=== PATIENT | female | born 1935 | race Caucasian/White ===

== ENCOUNTER → 2016-07-11 | Outpatient (CLI) | payer OTHER, MEDICARE ==
[~2016-07-11] MED LIST: PRMT25 PO; PROG100C6 PO; TRIEST PO
--- NOTE | 2016-07-12 13:58 | MAMMOGRAPHY REPORT ---
BILATERAL DIGITAL SCREENING MAMMOGRAM TOMOSYNTHESIS WITH CAD: 07/11/2016 CLINICAL HISTORY: Routine screening examination. TECHNIQUE: Breast tomosynthesis in addition to standard 2D mammography was performed. Current study was also evaluated with a Computer Aided Detection (CAD) system. COMPARISON: Comparison is made to exams dated: 07/08/2015 mammogram, 06/29/2015 mammogram, 11/12/2012 mammogram, and 08/04/2010 mammogram - [facility]. BREAST COMPOSITION: The tissue of both breasts is heterogeneously dense, which may obscure small ma sses. FINDINGS: There are a few benign-appearing calcifications bilaterally. No suspicious mass, architec tural distortion or cluster of suspicious microcalcifications is seen. IMPRESSION: ACR BI-RADS CATEGORY 1: NEGATIVE There is no mammographic evidence of malignancy. A 1 year screening mammogram is recommended. The p atient will receive written notification of the results. Approximately 10% of breast cancers are not detected with mammography. A negative mammographic repor t should not delay biopsy if a clinically suggestive mass is present. Che Herrera M.D. ay/:07/11/2016 16:36:40 Outside Contractor Sales: Maria Luisa MEDINA(R)(M), [facility] letter sent: Normal 1/2 BI-RADS Code: ACR BI-RADS Category 1: Negative
== END | disposition home or self-care (01) ==
LOC: C.MAMM 14:05
PROVIDERS: ATTEND Obstetrics & Gynecology
DX: Z12.31 Encounter for screening mammogram for malignant neoplasm of breast (principal)

== ENCOUNTER → 2016-08-25 | Outpatient (CLI) | payer OTHER, MEDICARE | END | disposition home or self-care (01) | LOC: C.PATHSPEC 13:21 | PROVIDERS: ATTEND Obstetrics & Gynecology | DX: L11.8 Other specified acantholytic disorders (principal) ==

== ENCOUNTER → 2017-07-13 | Outpatient (CLI) | payer OTHER, MEDICARE ==
--- NOTE | 2017-07-13 15:06 | MAMMOGRAPHY REPORT ---
BILATERAL DIGITAL SCREENING MAMMOGRAM TOMOSYNTHESIS WITH CAD: 07/13/2017 CLINICAL HISTORY: Routine screening. Patient has no complaints. TECHNIQUE: Breast tomosynthesis in addition to standard 2D mammography was performed. Current study was also evaluated with a Computer Aided Detection (CAD) system. COMPARISON: Comparison is made to exams dated: 07/11/2016 mammogram, 06/29/2015 mammogram, 11/12/2012 mammogram, 08/18/2011 mammogram, 08/16/2011 mammogram, and 08/04/2010 mammogram - [facility]. BREAST COMPOSITION: The tissue of both breasts is heterogeneously dense, which may obscure small mas ses. FINDINGS: There is a small area of probable architectural distortion within the right upper inner q uadrant, best seen on the tomosynthesis images, for which spot compression tomosynthesis views and po ssible breast ultrasound are recommended for further evaluation. The remainder of both breasts are stable compared to prior exams, without suspicious masses, calcific ations, or areas of architectural distortion noted. Bilateral superior breast asymmetries are stable compared to prior exams. IMPRESSION: ACR BI-RADS CATEGORY 0: INCOMPLETE EVALUATION: NEED ADDITIONAL IMAGING EVALUATION Probable architectural distortion in the right upper inner quadrant, for which additional imaging celine luation is recommended. The patient will be called to schedule an appointment. Approximately 10% of breast cancers are not detected with mammography. A negative mammographic report should not delay biopsy if a clinically suggestive mass is present. Christianne Corrales M.D. /:07/13/2017 13:19:15 Torpedo Specialist: Adrianne MEDINA(R)(M), [facility] letter sent: Addl Imaging 0 BI-RADS Code: ACR BI-RADS Category 0: Incomplete Evaluation: Need Additional Imaging Evaluation
== END | disposition home or self-care (01) ==
LOC: C.MAMM 10:04
PROVIDERS: ATTEND Obstetrics & Gynecology
DX: Z12.31 Encounter for screening mammogram for malignant neoplasm of breast (principal); R92.2 Inconclusive mammogram

== ENCOUNTER → 2017-07-18 | Outpatient (CLI) | payer OTHER, MEDICARE ==
--- NOTE | 2017-07-18 15:10 | MAMMOGRAPHY REPORT ---
UNILATERAL RIGHT DIGITAL DIAGNOSTIC MAMMOGRAM TOMOSYNTHESIS AND TARGETED RIGHT ULTRASOUND: 07/18/2017 CLINICAL HISTORY: Callback from screening mammogram for right breast architectural distortion. TECHNIQUE: Breast tomosynthesis in addition to standard 2D mammography was performed. Spot compress ion right CC and MLO 2-D and tomosynthesis images were obtained. COMPARISON: Comparison is made to exams dated: 07/13/2017 mammogram, 07/11/2016 mammogram, 07/08/2015 ma mmogram, 06/29/2015 mammogram, 11/12/2012 mammogram, and 08/16/2011 mammogram - [facility]. BREAST COMPOSITION: The tissue of the right breast is heterogeneously dense, which may obscure small masses. FINDINGS: Spot compression views demonstrate a persistent area of focal architectural distortion in the right 12 to 12:30 breast. Targeted ultrasound was performed of the area of the architectural distortion in the right breast. I n the right breast at 12:00, 3 cm from the nipple, there is an irregular hypoechoic mass which measur es 6 x 7 x 8 mm. This corresponds with the area of architectural distortion and is suspicious for ma lignancy. Recommend ultrasound-guided core needle biopsy for further evaluation. Targeted ultrasound was performed of the right axilla. The lymph nodes are normal oval in shape and have normal fatty tere. 1-2 of the lymph nodes demonstrate cortical thickness at the upper limits of normal at approximately 2.8 mm. The lymph nodes are equivocal for metastases. It was recommended t o attempt ultrasound guided biopsy of one of the lymph nodes at the time of the right breast biopsy, however, the patient does not desire lymph node biopsy at this time. IMPRESSION: ACR BI-RADS CATEGORY 4: SUSPICIOUS, TARGETED ULTRASOUND ACR BI-RADS CATEGORY 4: SUSPICIO US 1. Irregular 8 mm mass in the right breast at 12:00 on ultrasound, which corresponds with the rocky ectural distortion seen mammographically. The mass is suspicious for malignancy and ultrasound-guide d core needle biopsy is recommended for further evaluation. 2. One to two right axillary lymph nodes demonstrate cortical thicknesses which are at the upper campuzano its of normal, and are equivocal for metastases. Recommend attempted ultrasound guided core needle b iopsy of one of the lymph nodes at the time of the right breast biopsy. However, the patient does no t wish to undergo lymph node biopsy at this time which is reasonable given that sentinel lymph node b iopsy will be performed if the right breast mass is malignant. A phone call was made to the physician's office to confirm faxed results were received. The patient has been verbally notified of the results. She tentatively scheduled the breast biopsy before leavin g the department. Approximately 10% of breast cancers are not detected with mammography. A negative mammographic report should not delay biopsy if a clinically suggestive mass is present. Christianne Corrales M.D. ah/:07/18/2017 10:43:12 Bullet Slug Casting Machine Operator: Mo MEDINA(Kishan)(Adrian), [facility] letter sent: Abnormal 4/5 BI-RADS Code: ACR BI-RADS Category 4: Suspicious Ultrasound BI-RADS: ACR BI-RADS Category 4: Suspici ous
== END | disposition home or self-care (01) ==
LOC: C.MAMM 09:59
PROVIDERS: ATTEND Obstetrics & Gynecology
DX: R92.8 Other abnormal and inconclusive findings on diagnostic imaging of breast (principal); N63.10 Unspecified lump in the right breast, unspecified quadrant

== ENCOUNTER → 2017-07-25 | Outpatient (CLI) | payer OTHER, MEDICARE ==
--- NOTE | 2017-07-25 10:27 | Discharge Instructions ---
Discharge Instructions Procedure Procedure Date: Jul 25, 2017. Reason for visit: Right Breast Mass. Discharge Discharge Date: Jul 25, 2017. Discharge Diagnosis: status post breast biopsy Instructions Activity Recommendations: Additional Limitations (see below) Return to School/Work: no limitations Recommended Home Diet: No Limitations Provider Instructions: ACTIVITY RECOMMENDATIONS: * No lifting, pushing, pulling or exercising the affected side for three days. RETURN TO SCHOOL/WORK: * You may return to work/school after the procedure, but do not perform any strenuous activities for 24 to 48 hours. MEDICATIONS: * Tylenol (two 325 mg) every four to six hours if needed for mild pain (if not allergic to Tylenol). DIET: * Resume previous diet. SPECIAL CARE INSTRUCTIONS: * Keep biopsy site dry for 24 hours. May shower after 24 hours, but do not soak (bathe) incision. * May remove Tegaderm (plastic patch) tomorrow AFTER showering. * Leave the steri-strips on for one week. Allow the steri-strips to fall off by themselves. If not off after one week, you may remove them. You may place a Bandaid crosswise over the strips, if desired. * Apply ice 10 minutes on and 10 minutes off as needed. * Wear a bra at bedtime to sleep more comfortably for 2-3 days. * Your referring physician should have the results after approximately 5 to 7 business days. * Call for unusual bleeding, fever, drainage, etc or if you have any questions call during normal business hours. FOLLOW UP VISIT: Follow-up with Referring Physician as scheduled. Allergies Coded Allergies: No Known Allergies (Unverified , 10/17/14) Chuck Slade Recommendations: Call your doctor if: * Temperature above 101 degrees * Pain not relieved by pain medicine ordered * There is increased drainage or redness from any incision * You have any unanswered questions or concerns. Your Doctors Instructions noted above were prepared by provider Christianne Corrales. Patient Signature Section: Patient Instructions Signature Page Marina Polk Patient (or Guardian) Signature/Date: I have read and understand the instructions given to me by my caregivers. Caregiver/RN/Doctor Signature/Date: The above-named patient and/or guardian has received patient instructions on this date. + Original Patient Signature Page (only) stays with chart. Please make copy for patient.
--- NOTE | 2017-07-25 15:38 | MAMMOGRAPHY REPORT ---
ULTRASOUND GUIDED BIOPSY RIGHT BREAST: 07/25/2017 CLINICAL HISTORY: Right 12:00 breast mass. PATIENT CONSENT: The procedure, risks and benefits were discussed with the patient and informed writt en consent was obtained. A timeout was performed immediately prior to the procedure. PROCEDURE DESCRIPTION: With ultrasound guidance, aseptic technique, and lidocaine as the local anesth etic (1% lidocaine to anesthetize the skin and 1% lidocaine with epinephrine to anesthetize the deepe r tissues), the mass of concern in the right 12:00 breast was sampled 3 times with a 14-gauge Achieve biopsy needle. Immediately thereafter, with ultrasound guidance, aseptic technique, and lidocaine a s the local anesthetic, a metallic localizer clip was placed centrally in the mass. Direct pressure was applied to the site immediately post procedure and hemostasis was achieved. Postprocedure unilat eral mammograms were performed to confirm placement of the clip in the expected location of the breas t mass. The patient tolerated the procedure without complication. She was given wound care instruct ions. The specimens were sent to pathology for analysis. COMPARISON: Comparison is made to exams dated: 07/18/2017 ultrasound, 07/18/2017 mammogram, 07/13/2017 mammogram, 07/11/2016 mammogram, 07/08/2015 mammogram, and 06/29/2015 mammogram - [facility]. IMPRESSION: ULTRASOUND GUIDED BIOPSY Ultrasound-guided core needle biopsy of the right 12:00 breast mass, with clip placement. The patien t will receive pathology results from her referring provider. Christianne Corrales M.D. ah/:07/25/2017 10:28:06 Configuration Management Manager: Rebecca Delgado, [facility]
--- NOTE | 2017-07-25 15:42 | MAMMOGRAPHY REPORT ---
UNILATERAL RIGHT DIGITAL DIAGNOSTIC MAMMOGRAM TOMOSYNTHESIS: 07/25/2017 CLINICAL HISTORY: Status post right breast biopsy. TECHNIQUE: Breast tomosynthesis in addition to standard 2D mammography was performed. Postprocedura l right CC and ML tomosynthesis images including C views were obtained. COMPARISON: Comparison is made to exams dated: 07/18/2017 ultrasound, 07/18/2017 mammogram, 07/13/2017 mammogram, 07/11/2016 mammogram, 06/29/2015 mammogram, and 07/08/2015 mammogram - [facility]. BREAST COMPOSITION: The tissue of the right breast is heterogeneously dense, which may obscure small masses. FINDINGS: A new biopsy marker clip is seen within the biopsied mass in the right 12:00 breast. No s ignificant postbiopsy hematoma is seen. IMPRESSION: POST PROCEDURE IMAGING FOR MARKER PLACEMENT New biopsy marker clip status post ultrasound-guided biopsy of a right 12:00 breast mass. Pathology results are pending. Approximately 10% of breast cancers are not detected with mammography. A negative mammographic report should not delay biopsy if a clinically suggestive mass is present. Christianne Corrales M.D. /:07/25/2017 10:32:46 Gold Frame Assembler: Rebecca Delgado, [facility] BI-RADS Code: Post Procedure Imaging For Marker Placement
== END | disposition home or self-care (01) ==
LOC: C.MAMM 09:57
PROVIDERS: ATTEND Obstetrics & Gynecology
DX: N63.10 Unspecified lump in the right breast, unspecified quadrant (principal); D05.01 Lobular carcinoma in situ of right breast

== ENCOUNTER 2017-08-22 07:50 | Observation (INO) | payer OTHER, MEDICARE ==
[2017-08-07 09:23] VITALS: BMI 24.0
--- NOTE | 2017-08-07 10:05 | PAT Medication Instructions ---
Service Date Aug 07, 2017. Current Home Medication List Ibuprofen (Advil), 200 MG PO PRN Vitamins C & E (Vitamin C), 0.5 TAB PO BID Medication Instructions For Your Scheduled Surgery -Contact your surgeon for instructions for: Ibuprofen (Advil), 200 MG PO PRN - Hold the following medications the morning of surgery: Vitamins C & E (Vitamin C), 0.5 TAB PO BID - Take the following medications as scheduled the night before surgery: Vitamins C & E (Vitamin C), 0.5 TAB PO BID If you have any questions please call us at [phone] or [phone] or [phone]
[2017-08-07 11:08] LABS: BASO % 0.4 %; BASO ABS # 0.03 K/uL (0-0.2); EOS % 0.7 %; EOS ABS # 0.05 K/uL (0-0.5); HEMATOCRIT 41.2 % (37-47); HEMOGLOBIN 13.9 g/dL (12.0-16.0); IG# 0.02 K/uL (0.00-0.02); LYMPH % 18.9 %; MEAN CELL VOLUME 92.8 fL (80-100); MEAN CORPUSCULAR HEMOGLOBIN 31.3 pg (25-34); MEAN CORPUSCULAR HGB CONC 33.7 g/dl (32-36); MEAN PLATELET VOLUME 10.9 fL (7.4-10.4); MONO % 7.8 %; MONO ABS # 0.58 K/uL (0.11-0.59); NEUT % 71.9 %; NEUT ABS # 5.33 K/uL (1.4-6.5); PLATELET COUNT 187 K/uL (130-400); RED CELL DISTRIBUTION WIDTH CV 13.5 % (11.5-14.5); RED CELL DISTRIBUTION WIDTH SD 45.7 fL (36.4-46.3); WHITE BLOOD COUNT 7.41 K/uL (4.8-10.8)
[2017-08-07 13:13] LABS: CALCIUM 9.1 mg/dl (8.5-10.1); CREATININE 1.06 mg/dl (0.60-1.20); POTASSIUM 4.3 mmol/L (3.5-5.1)
[~2017-08-22] VITALS: Ht 157.5 cm; Wt 59.8 kg
[2017-08-22] VITALS (8 sets, daily range): BP systolic 118–162; BP diastolic 61–79; PULSE 51–81; TEMP 36.3–37; O2SAT 95–99; Ht 157.5 cm; Wt 59.8 kg
[~2017-08-22 07:50] MED LIST changes: +CEFAZOLIN 2000MG IV PUSH 15 ML IV SCH; +IBUP-1050 PO; +LACTATED RINGER'S 1000ML 1,000 ML IV SCH; -PRMT25 PO; -PROG100C6 PO; -TRIEST PO; +VITACAP26 PO
--- NOTE | 2017-08-22 09:38 | DIAGNOSTIC IMAGING REPORT ---
RIGHT BREAST LYMPHOSCINTIGRAPHY CLINICAL HISTORY: Right breast cancer. COMPARISON STUDY: Diagnostic mammogram July 25, 2017. PROCEDURE: The procedure, risks and benefits were discussed with the patient and informed consent was obtained. The procedure was performed by Dr. Tran following a timeout. Skin of the right periareolar region was prepped. A total of 0.446 mCi of Lymphoseek was injected in 5 intradermal aliquots within a right periareolar distribution at 9:10 AM on August 22, 2017. No imaging was requested at this time. The patient tolerated the procedure well and no immediate complications were evident. IMPRESSION: Right breast lymphoscintigraphy. Electronically signed by: Masood Tran M.D. 08/22/2017 9:37 AM Dictated Date/Time: 08/22/2017 9:33 AM
[2017-08-22] MEDS ORDERED: FENTANYL CITRATE INJ 50 MCG/1 ML 2 ML VIAL ONE ×2 (11:14→13:07)
--- NOTE | 2017-08-22 11:16 | History & Physical Bridge Note ---
H&P Re-Evaluation Bridge Note: I have examined the patient, reviewed the History & Physical and in the interval since the performance of the History & Physical I have noted the following changes of clinical significance: No changes noted
[2017-08-22] MEDS ORDERED: LIDOCAINE HCL 2% 2 ML VIAL (20MG/ML) ONE (11:19)
[2017-08-22] MEDS ORDERED: PROPOFOL IV EMULSION 10 MG/ML 20 ML VIAL IV ONE (11:19)
[2017-08-22] MEDS ORDERED: ONDANSETRON INJ 2 MG/ML 2 ML VIAL ONE (11:19)
[2017-08-22] MEDS ORDERED: EpHEDrine SULFATE 50MG/5ML SYR ONE (11:19)
[2017-08-22] MEDS ORDERED: PHENYLEPHRINE 100MCG/ML 5ML SYR ONE (11:19)
[2017-08-22] MEDS ORDERED: DEXAMETHASONE SOD INJ 4 MG/ML VIAL ONE (11:19)
[2017-08-22] MEDS ORDERED: BUPIVACAINE 0.5 % 5 MG/1 ML MPF 30ML VIAL ONE (11:21)
[2017-08-22] MEDS ORDERED: METHYLENE BLUE 0.5% 10 ML VIAL ONE (11:21)
--- NOTE | 2017-08-22 12:44 | [facility] Operative Report ---
Operative Report Operative Date Aug 22, 2017. Pre-Operative Diagnosis Right breast cancer Post-Operative Diagnosis Right breast cancer Procedure(s) Performed Right Breast Lumpectomy with Needle Localization and Right [place] Lymph Node Biopsy (Injection Only) Surgeon Dr. Dane Powell Mounter Flutes And Piccolos Surgeon(s) Madelin Ruiz PA-C Estimated Blood Loss 20 mL Findings clip w/n tissue, SLN neg Specimens Frozen Section 1: Right sentinel lymph node Sent to lab at 1213. Carried by OR aide Fresh specimens A: Right breast tissue: skin anterior, long silk lateral, short silk medial, plain suture superior B: Right breast additional superior tissue: long silk lateral, short silk medial, methylene blue new margin C: Right breast additional inferior tissue: long silk lateral, short silk medial, methylene blue new margin Drains None Anesthesia Type General Complication(s) none Disposition Recovery Room / PACU I attest to the content of the Intraoperative Record and any orders documented therein. Any exceptions are noted below.
[2017-08-22] MEDS ORDERED: LACTATED RINGER'S 1000ML 1,000 ML IV SCH (12:46)
[2017-08-22] MEDS ORDERED: ONDANSETRON INJ 2 MG/ML 2 ML VIAL IV PRN ×2 (13:00→13:15)
[2017-08-22] MEDS ORDERED: HYDROCODONE/ACETAMIN 5/325MG TAB PO PRN ×2 (13:00)
[2017-08-22] MEDS ORDERED: MoRPHine SULFATE 2 MG/ML CARP IV PRN (13:00)
[2017-08-22] MEDS ORDERED: MoRPHine SULFATE 4 MG/ML 1 ML CARP\\VIAL IV PRN (13:00)
[2017-08-22] MEDS ORDERED: ACETAMINOPHEN 325 MG TAB PO PRN (13:00)
[2017-08-22] MEDS: FENTANYL CITRATE INJ 50 MCG/1 ML 2 ML VIAL IV PRN ×4 (13:10→13:28)
--- NOTE | 2017-08-22 13:10 | OPERATIVE REPORT ---
DATE OF OPERATION: 08/22/2017 NAME OF OPERATION: Needle localization right lumpectomy with sentinel lymph node biopsy. PREOPERATIVE DIAGNOSIS: Invasive lobular cancer, right breast. POSTOPERATIVE DIAGNOSIS: Same. STAFF SURGEON: Dr. Powell. COMPLETION MANAGER: Madelin Ruiz PA-C. ANESTHESIA: General. PROCEDURE: The patient was brought in the operating room and placed on the operating table in supine position. Her right arm was extended on an arm board. She had a needle placed in the right breast. Her axilla and right chest were prepped and draped in usual fashion. Using the Neoprobe, incision was made in the right axilla, carrying dissection down, identifying the sentinel node which was sent for frozen section. Frozen section was negative. During the frozen section, we performed lumpectomy by making an elliptical incision around the needle medially, deep down into the breast, excising the tissue to the muscle. The tissue was marked as right breast tissue with skin anterior, long silk lateral, short silk medial, plain suture superior. It was sent in the [facility] to the [facility]. The imaging showed well around the site. I did take additional tissue both down to the muscle and around the area of the tip of the needle superior and inferior, long silk suture lateral, short silk suture medial, and methylene blue on the new margin. At this point, after appropriate hemostasis, both incisions were closed, reapproximating the deep tissue using 2-0 plain catgut suture, then the skin in the axilla using 4-0 nylon suture and the breast using subcuticular 4-0 Monocryl with Steri-Strips. Dressing was applied and the patient transferred to recovery room in stable condition. I attest to the content of the Intraoperative Record and any orders documented therein. Any exception s are noted below.
[2017-08-22] MEDS ORDERED: ATROPINE SULFATE 0.1 MG/ML 5ML SYR IV PRN (13:15)
[2017-08-22] MEDS ORDERED: EpHEDrine SULFATE INJ 50 MG/ML AMP IV PRN (13:15)
[2017-08-22] MEDS ORDERED: NALOXONE HCL 0.4 MG/1 ML VIAL/CARP IV PRN (13:15)
[2017-08-22] MEDS ORDERED: PROMETHAZINE HCL INJ 12.5 MG in SODIUM CHLORIDE 0.9% 50ML 50 ML IV PRN (13:15)
[2017-08-22] MEDS ORDERED: IV FLUIDS COMPLETED PRN (13:45)
[2017-08-22] MEDS ORDERED: HYDROmorphone INJ 1 MG/ML SYR IV PRN (13:45)
[2017-08-22] MEDS ORDERED: HYDROmorphone INJ 0.5 MG/0.5 ML SYR ONE (13:46)
--- NOTE | 2017-08-22 14:03 | Anesthesiology Progress Note ---
Anesthesia Post Op Note Date & Time Aug 22, 2017 at 14:03 Vital Signs Pain Intensity: 6 Vital Signs Past 12 Hours Date Time Temp Pulse Resp B/P (MAP) Pulse Ox O2 Delivery O2 Flow Rate FiO2 08/22/17 13:48 56 15 08/22/17 13:48 56 15 97 08/22/17 13:46 148/77 08/22/17 13:43 56 16 08/22/17 13:43 56 16 99 08/22/17 13:42 36.1 08/22/17 13:41 152/75 08/22/17 13:38 62 17 08/22/17 13:38 63 17 98 08/22/17 13:37 59 16 08/22/17 13:37 58 16 99 08/22/17 13:36 150/71 08/22/17 13:32 63 16 100 08/22/17 13:32 63 16 08/22/17 13:31 140/70 08/22/17 13:29 61 13 08/22/17 13:29 60 13 99 08/22/17 13:26 138/66 08/22/17 13:24 56 16 98 08/22/17 13:24 56 16 08/22/17 13:23 61 16 08/22/17 13:23 60 16 100 08/22/17 13:21 133/69 08/22/17 13:18 63 16 99 08/22/17 13:18 64 16 08/22/17 13:16 143/75 08/22/17 13:13 64 16 08/22/17 13:13 64 16 99 08/22/17 13:11 151/76 08/22/17 13:08 65 15 99 08/22/17 13:08 65 15 08/22/17 13:06 148/74 08/22/17 13:04 148/74 08/22/17 13:03 36.0 65 13 148/74 98 Oxymask 10 08/22/17 13:03 68 08/22/17 13:03 68 98 08/22/17 09:44 36.9 73 18 153/78 (103) 98 Room Air Notes Mental Status: alert / awake / arousable, participated in evaluation Pt Amnestic to Procedure: Yes Nausea / Vomiting: adequately controlled Pain: adequately controlled Airway Patency, RR, SpO2: stable & adequate BP & HR: stable & adequate Hydration State: stable & adequate Anesthetic Complications: no major complications apparent
--- NOTE | 2017-08-22 15:13 | MAMMOGRAPHY REPORT ---
SPECIMEN: 08/22/2017 CLINICAL HISTORY: Right breast lumpectomy specimen. Please refer to the report from right breast ultrasound-guided needle localization performed at the s gunjan time for full detail. IMPRESSION: SPECIMEN Please refer to the report from right breast ultrasound-guided needle localization performed at the s gunjan time for full detail. Che Herrera M.D. ay/:08/22/2017 09:34:20 Hand Silvering Supervisor: Betty MEDINA(R)(M), [facility]
--- NOTE | 2017-08-22 15:13 | MAMMOGRAPHY REPORT ---
NEEDLE LOCALIZATION RIGHT BREAST: 08/22/2017 CLINICAL HISTORY: 81-year-old woman with recently diagnosed invasive lobular carcinoma of the right b reast. Patient presents for preoperative needle and wire localization prior to lumpectomy. COMPARISON: Comparison is made to exams dated: 07/25/2017 ultrasound biopsy, 07/25/2017 mammogram, 07/02 ultrasound, 07/18/2017 mammogram, 07/13/2017 mammogram, and 07/11/2016 mammogram - [facility]. PATIENT CONSENT: The risks of the procedure were explained to the patient and informed consent was ob tained. The patient denied eating or drinking anything this morning that would preclude anesthesia. She also denied allergy to lidocaine. PROCEDURE DESCRIPTION: Prior mammograms, ultrasounds and ultrasound-guided core biopsy images were re viewed. The irregular hypoechoic solid 6 mm mass with associated architectural distortion in the 12: 00 right breast, 3 cm from the nipple is the intended target for localization. With the patient in t he supine position, first repeat targeted ultrasound was performed in the area of prior biopsy. The irregular hypoechoic solid mass with internal biopsy marker clip is identified and amenable to ultras ound-guided localization. Then the skin of the right breast was cleansed with Betadine. Sterile blanquita pes were placed. 1% buffered lidocaine without epinephrine was administered as local anesthesia. A 57 m Masters 2 needle wire commendation was inserted through the mass and locked in place. Post loca lization right CC and ML 2-D and tomosynthesis images were obtained which demonstrates the biopsy mar ker clip abutting the localizing needle, approximately 8 mm from the tip of the needle. The patient tolerated the procedure well and there was no immediate competition. She was transferred to the oper ating room in satisfactory condition. The entire procedure including approach and needle length were discussed with the operating surgeon prior to surgery. The specimen radiograph demonstrates the localizing needle and wire combination, the ribbon-shaped bi opsy marker clip and density surrounding the distal aspect of the needle, compatible with successful preoperative localization and subsequent surgical excision. Final pathology is pending. IMPRESSION: NEEDLE LOCALIZATION Status post preoperative localization for biopsy-proven lobular carcinoma in the 12:00 right breast. The imaged specimen includes the intended abnormalities. The patient will receive final pathology results from her referring physician. Che Herrera M.D. ay/:08/22/2017 12:35:56 Attending Technologist: Betty MEDINA(Kishan)(M), [facility] Hydraulic Jack Adjuster: Dr. Che Herrera, [facility]
--- NOTE | 2017-08-22 15:14 | MAMMOGRAPHY REPORT ---
UNILATERAL RIGHT DIGITAL DIAGNOSTIC MAMMOGRAM TOMOSYNTHESIS: 08/22/2017 CLINICAL HISTORY: Post localization mammographic imaging. Please refer to the report from right breast ultrasound-guided needle localization performed at the s gunjan time for full detail. IMPRESSION: Please refer to the report from right breast ultrasound-guided needle localization performed at the s gunjan time for full detail. Approximately 10% of breast cancers are not detected with mammography. A negative mammographic report should not delay biopsy if a clinically suggestive mass is present. Che Herrera M.D. ay/:08/22/2017 09:33:52 Clean Room Assembler: Betty MEDINA(Kishan)(M), [facility] BI-RADS Code: n/a
[2017-08-22] MEDS ORDERED: HYDR-5688 PO (15:44)
--- NOTE | 2017-08-22 15:46 | Discharge Instructions ---
Discharge Instructions Date of Service Aug 22, 2017. Admission Reason for Admission: Rt Breast Cancer/Hosp Loc/Lymph To Follow Discharge Discharge Diagnosis / Problem: Rt breast cancer Discharge Goals Goal(s): Decrease discomfort, Improve function, Improve disease control Activity Recommendations Activity Limitations: as noted below Lifting Limitations: no more than 25 pounds Exercise/Sports Limitations: until after follow-up appointment May Resume Sexual Activity: when tolerated Shower/Bathe: tomorrow Driving or Machine Use: one week . Instructions / Follow-Up Instructions / Follow-Up SPECIAL CARE INSTRUCTIONS: * Cover incisions and change daily for comfort/drainage. * Leave steri strips in place * May use ibuprofen for pain as tolerated. And/or- plain Acetaminophen * Expect some swelling and bruising. Call your doctor if: * Temperature above 101 degrees * Pain not relieved by pain medicine ordered * There is increased drainage or redness from any incision * You have any unanswered questions or concerns [phone]. FOLLOW UP VISIT: If not already scheduled, please call the office for a follow-up visit. for next week- some suture removal OFFICE PHONE NUMBER: Dr. Powell Office Current Hospital Diet Patient's current hospital diet: Regular Diet Discharge Diet Recommended Diet: Regular Diet Procedures Procedures Performed: Right Breast Lumpectomy with Needle Localization and Right [place] Lymph Node Biopsy (Injection Only) Pending Studies Studies pending at discharge: no Medical Emergencies . Who to Call and When: Medical Emergencies: If at any time you feel your situation is an emergency, please call 911 immediately. . Non-Emergent Contact Non-Emergency issues call your: Primary Care Provider, Surgeon . "Provider Documentation" section prepared by Dane Powell. . VTE Core Measure Inpt VTE Proph given/why not?: SCD's
--- NOTE | 2017-08-22 17:07 | Medical Consult ---
Consultation Date of Consultation: Aug 22, 2017. Attending Physician: Dane Powell M.D. Reason for Consultation: Medical Management History of Present Illness 81 y/o F who was admitted earlier today s/p R breast lumpectomy with Dr. Powell. Pt had some nausea with a bit of emesis post-op but is doing better s/p zofran. She is awaiting dinner. Pt denies fever, SOB, chest pain, abd pain, c/d, LE pain or swelling. Her pain is decently controlled. Past Medical/Surgical History No PMH Family History Family history was reviewed; no changes noted. Social History Smoking Status: Never Smoker Alcohol Use: none Drug Use: none Housing Status: lives alone Allergies Coded Allergies: Tetracycline (Verified Allergy, Unknown, RASH?, 08/07/17) Current Inpatient Medications Current Inpatient Medications Medications (Trade) Dose Ordered Sig/Luh Route Start Time Stop Time Status Last Admin Dose Admin Cefazolin Sodium 1000 mg/Syringe 7.5 ml @ 2.5 mls/min Q8H IV 08/22/17 20:00 08/23/17 19:59 Acetaminophen/ Hydrocodone Bitart (Rowdy 5/325 Tab) 1 tab Q4 PRN PO 08/22/17 13:00 09/05/17 12:59 Acetaminophen/ Hydrocodone Bitart (Rowdy 5/325 Tab) 2 tab Q4 PRN PO 08/22/17 13:00 09/05/17 12:59 Morphine Sulfate (MoRPHine SULFATE INJ) 2 mg Q4H PRN IV 08/22/17 13:00 09/05/17 12:59 Morphine Sulfate (MoRPHine SULFATE INJ) 4 mg Q4H PRN IV 08/22/17 13:00 09/05/17 12:59 Ondansetron HCl (Zofran Inj) 4 mg Q6H PRN IV 08/22/17 13:00 09/21/17 12:59 08/22/17 16:05 4 MG Acetaminophen (Tylenol Tab) 650 mg Q4H PRN PO 08/22/17 13:00 09/21/17 12:59 Fentanyl Citrate (Fentanyl Inj) 25 mcg Q5M PRN IV 08/22/17 13:15 08/22/17 19:15 08/22/17 13:28 25 MCG Naloxone HCl (Narcan Inj) 0.2 mg Q2M PRN IV 08/22/17 13:15 08/22/17 19:15 Ondansetron HCl (Zofran Inj) 4 mg ONE PRN IV 08/22/17 13:15 Promethazine HCl 12.5 mg/Sodium Chloride 50.5 ml @ 202 mls/hr ONE PRN IV 08/22/17 13:15 Ephedrine Sulfate (EpHEDrine SULFATE INJ) 5 mg Q5M PRN IV 08/22/17 13:15 08/22/17 19:15 Atropine Sulfate (Atropine Sulfate 0.1mg/ml Inj) 0.5 mg Q1M PRN IV 08/22/17 13:15 08/22/17 19:15 Miscellaneous (Iv Fluids Completed) 1 ea PRN PRN N/A 08/22/17 13:45 08/22/18 13:44 Hydromorphone HCl (Dilaudid Inj) 0.25 mg UD PRN IV 08/22/17 13:45 08/22/17 18:45 Review of Systems Pertinent positives and negatives reviewed in HPI--all others negative Physical Exam Date Time Temp Pulse Resp B/P (MAP) Pulse Ox O2 Delivery O2 Flow Rate FiO2 08/22/17 16:13 36.6 51 18 158/72 (100) 98 Room Air 08/22/17 15:14 36.4 54 18 162/78 (106) 95 Nasal Cannula 2.0 08/22/17 14:50 36.3 57 18 158/79 (105) 98 Nasal Cannula 2.0 08/22/17 14:15 Nasal Cannula 2.0 08/22/17 14:15 Nasal Cannula 2.0 08/22/17 14:15 36.5 63 16 160/78 (105) 99 Nasal Cannula 2.0 08/22/17 14:07 36.2 08/22/17 14:04 65 16 08/22/17 14:04 65 16 99 08/22/17 14:01 148/72 08/22/17 13:59 59 26 08/22/17 13:59 62 16 98 08/22/17 13:56 144/76 08/22/17 13:54 64 14 98 08/22/17 13:54 63 14 08/22/17 13:51 148/83 08/22/17 13:49 57 19 08/22/17 13:49 57 19 99 08/22/17 13:48 56 15 08/22/17 13:48 56 15 97 08/22/17 13:46 148/77 08/22/17 13:43 56 16 08/22/17 13:43 56 16 99 08/22/17 13:42 36.1 08/22/17 13:41 152/75 08/22/17 13:38 62 17 08/22/17 13:38 63 17 98 08/22/17 13:37 59 16 08/22/17 13:37 58 16 99 08/22/17 13:36 150/71 08/22/17 13:32 63 16 100 08/22/17 13:32 63 16 08/22/17 13:31 140/70 08/22/17 13:29 61 13 08/22/17 13:29 60 13 99 08/22/17 13:26 138/66 08/22/17 13:24 56 16 98 08/22/17 13:24 56 16 08/22/17 13:23 61 16 08/22/17 13:23 60 16 100 08/22/17 13:21 133/69 08/22/17 13:18 63 16 99 08/22/17 13:18 64 16 08/22/17 13:16 143/75 08/22/17 13:13 64 16 08/22/17 13:13 64 16 99 08/22/17 13:11 151/76 08/22/17 13:08 65 15 99 08/22/17 13:08 65 15 08/22/17 13:06 148/74 08/22/17 13:04 148/74 08/22/17 13:03 36.0 65 13 148/74 98 Oxymask 10 08/22/17 13:03 68 08/22/17 13:03 68 98 08/22/17 09:44 36.9 73 18 153/78 (103) 98 Room Air General Appearance: WD/WN, no apparent distress Head: normocephalic, atraumatic Eyes: normal inspection, sclerae normal Respiratory/Chest: normal breath sounds, no respiratory distress Cardiovascular: regular rate, rhythm, no edema Abdomen/GI: non tender, soft Extremities/Musculoskelatal: no calf tenderness, no pedal edema Neurologic/Psych: alert, normal mood/affect, oriented x 3 Skin: normal color, warm/dry Assessment & Plan 81 y/o F who was admitted on 08/22 s/p R breast lumpectomy with Dr. Powell. R lumpectomy: as per surgery DVT proph and diet as per surgery Post-op n/v: zofran PRN Pt is doing well post-op. We will sign off. Please contact us if further evaluation is needed.
[2017-08-22] MEDS: CEFAZOLIN IV 1,000 MG in SYRINGE 0 ML IV SCH (21:12)
[2017-08-23 03:55] VITALS: BP 122/72; PULSE 65; TEMP 36.8; O2SAT 97
[2017-08-23] MEDS: CEFAZOLIN IV 1,000 MG in SYRINGE 0 ML IV SCH ×2 (05:34→11:34)
--- NOTE | 2017-08-23 06:53 | DISCHARGE SUMMARY ---
PRINCIPAL DIAGNOSIS: Right breast cancer. PROCEDURE: The patient underwent needle localization with a right partial mastectomy with sentinel lymph node biopsy. The sentinel lymph node on frozen section was negative. The patient has done quite well overnight and is felt stable for discharge home today to be followed in the surgical clinic next week for wound check and suture removal. She may need a visiting nurse.
[2017-08-23 07:38] VITALS: BP 143/73; PULSE 52; TEMP 36.6; O2SAT 97
--- NOTE | 2017-08-23 10:47 | Anesthesiology Progress Note ---
Anesthesia Post Op Note Date & Time Aug 23, 2017 at 10:46 Vital Signs Pain Intensity: 0.0 Vital Signs Past 12 Hours Date Time Temp Pulse Resp B/P (MAP) Pulse Ox O2 Delivery O2 Flow Rate FiO2 08/23/17 07:45 Room Air 08/23/17 07:38 36.6 52 18 143/73 (96) 97 Room Air 08/23/17 03:55 36.8 65 18 122/72 (89) 97 Room Air 08/22/17 23:25 Room Air 08/22/17 23:11 37.0 64 18 134/66 (88) 97 Room Air Notes Mental Status: alert / awake / arousable, participated in evaluation Pt Amnestic to Procedure: Yes Nausea / Vomiting: adequately controlled Pain: adequately controlled Airway Patency, RR, SpO2: stable & adequate BP & HR: stable & adequate Hydration State: stable & adequate Anesthetic Complications: no major complications apparent
[2017-08-23 12:07] VITALS: BP 143/73; PULSE 52; TEMP 36.6; O2SAT 97
== END 2017-08-23 13:53 | disposition home health service (06) ==
LOC: C.ACU 07:50 → C.MSW 09:46 → ENRESERV 13:55
PROVIDERS: ADMIT Surgery; ATTEND Surgery
DX: D05.01 Lobular carcinoma in situ of right breast (principal); Z88.1 Allergy status to other antibiotic agents; Z90.89 Acquired absence of other organs; Z98.51 Tubal ligation status; Z90.5 Acquired absence of kidney; Z98.818 Other dental procedure status; Z79.899 Other long term (current) drug therapy; Z80.9 Family history of malignant neoplasm, unspecified; Z83.3 Family history of diabetes mellitus; Z81.8 Family history of other mental and behavioral disorders

== ENCOUNTER → 2017-09-26 | Outpatient (CLI) | payer OTHER, MEDICARE ==
[~2017-09-26] MED LIST changes: -CEFAZOLIN 2000MG IV PUSH 15 ML IV SCH; -LACTATED RINGER'S 1000ML 1,000 ML IV SCH; -VITACAP26 PO
--- NOTE | 2017-09-26 15:19 | DIAGNOSTIC IMAGING REPORT ---
CHEST 2 VIEWS ROUTINE CLINICAL HISTORY: BREAST CA breast carcinoma COMPARISON STUDY: No previous studies for comparison. FINDINGS: The bones soft tissues and hemidiaphragms are normal. The cardiomediastinal silhouette is normal. The lungs are clear. The pulmonary vasculature is normal. IMPRESSION: Negative chest. The above report was generated using voice recognition software. It may contain grammatical, syntax or spelling errors. Electronically signed by: Yinka Ruano M.D. 09/26/2017 3:18 PM Dictated Date/Time: 09/26/2017 3:17 PM
== END | disposition home or self-care (01) ==
LOC: C.RAD 14:46
PROVIDERS: ATTEND Internal Medicine Hematology & Oncology
DX: C50.911 Malignant neoplasm of unspecified site of right female breast (principal)

== ENCOUNTER → 2017-11-01 | Outpatient (CLI) | payer OTHER, MEDICARE ==
[2017-11-01 15:39] LABS: BASO % 0.3 %; BASO ABS # 0.02 K/uL (0-0.2); EOS % 1.1 %; EOS ABS # 0.07 K/uL (0-0.5); HEMATOCRIT 39.3 % (37-47); HEMOGLOBIN 13.1 g/dL (12.0-16.0); IG# 0.01 K/uL (0.00-0.02); LYMPH ABS # 1.91 K/uL (1.2-3.4); MEAN CELL VOLUME 92.5 fL (80-100); MEAN CORPUSCULAR HEMOGLOBIN 30.8 pg (25-34); MEAN CORPUSCULAR HGB CONC 33.3 g/dl (32-36); MEAN PLATELET VOLUME 10.9 fL (7.4-10.4); MONO % 7.4 %; MONO ABS # 0.49 K/uL (0.11-0.59); NEUT ABS # 4.09 K/uL (1.4-6.5); PLATELET COUNT 157 K/uL (130-400); RED CELL DISTRIBUTION WIDTH CV 13.8 % (11.5-14.5); RED CELL DISTRIBUTION WIDTH SD 46.7 fL (36.4-46.3); WHITE BLOOD COUNT 6.59 K/uL (4.8-10.8)
[2017-11-01 16:13] LABS: ALBUMIN 3.7 gm/dl (3.4-5.0); ALT/SGPT 41 U/L (12-78); AST/SGOT 26 U/L (15-37); BLOOD UREA NITROGEN 26 mg/dl (7-18); CALCIUM 9.2 mg/dl (8.5-10.1); CARBON DIOXIDE 28 mmol/L (21-32); CREATININE 1.14 mg/dl (0.60-1.20); GLUCOSE 84 mg/dl (70-99); POTASSIUM 4.5 mmol/L (3.5-5.1); SODIUM 133 mmol/L (136-145)
[2017-11-01 16:16] LABS: ALKALINE PHOSPHATASE 75 U/L (45-117); TOTAL PROTEIN 6.8 gm/dl (6.4-8.2)
== END | disposition home or self-care (01) ==
LOC: C.LAB1850 14:52
PROVIDERS: ATTEND Internal Medicine Hematology & Oncology
DX: C50.911 Malignant neoplasm of unspecified site of right female breast (principal)

== ENCOUNTER 2021-11-19 01:11 | Inpatient (IN) ==
[2021-11-19] MEDS: METOPROLOL TARTRATE 1 MG/ML VIAL IV STA ×2 (01:38→01:40)
[2021-11-19] MEDS ORDERED: dilTIAZem HCl 5 MG/ML 5 ML VIAL IV ONE (01:41)
[2021-11-19 01:49] LABS: Basophils # (auto) 0.01 K/uL (0-0.2); Basophils % (auto) 0.2 %; Hematocrit (blood only) 40.6 % (37-47); Hemoglobin 13.9 g/dL (12.0-16.0); Immature Granulocytes # (auto) 0.03 K/uL (0.00-0.02); Immature Granulocytes % (auto) 0.6 %; Lymphocytes # (auto) 0.97 K/uL (1.2-3.4); Lymphocytes % (auto) 19.4 %; Mean Corpuscular Hemoglobin 31.2 pg (25-34); Mean Corpuscular Hgb Conc 34.2 g/dL (32-36); Mean Platelet Volume 10.9 fL (7.4-10.4); Neutrophils # (auto) 3.29 K/uL (1.4-6.5); Neutrophils % (auto) 65.8 %; Platelet Count 194 K/uL (130-400); RDW Coefficient of Variation 13.6 % (11.5-14.5); RDW Standard Deviation 45.3 fL (36.4-46.3); Red Blood Count 4.46 M/uL (4.2-5.4)
[2021-11-19 01:58] LABS: INR 0.9 (0.9-1.1); Partial Thromboplastin Ratio 0.9; Partial Thromboplastin Time 24.7 Seconds (21.0-31.0); Prothrombin Time 9.9 Seconds (9.0-12.0)
[2021-11-19 02:24] LABS: Albumin Level 4.3 gm/dl (3.4-5.0); BUN Creatinine Ratio 19.6 (10-20); Bilirubin Direct 0.2 mg/dl (0-0.2); Bilirubin,Total 0.7 mg/dl (0.2-1.0); Calcium 9.4 mg/dl (8.5-10.1); Est GFR (African American) 55.2 ml/min; Est GFR (Non-African American) 47.6 ml/min; Potassium 4.3 mmol/L (3.5-5.1); Total Protein 7.3 gm/dl (6.0-8.3)
[2021-11-19 02:34] LABS: Troponin I High Sensitivity 17.9 pg/ml (0-14)
[2021-11-19] MEDS ORDERED: DIGOXIN 250 MCG in SYRINGE 9 ML IV ONE (02:57)
--- NOTE | 2021-11-19 03:44 | History & Physical Report ---
Date of Service November 19, 2021 Assessment & Plan (1) Tachyarrhythmia: Plan: 85-year-old female with history of hypothyroidism recently started on levothyroxine, SVT noted on event monitor 09/2021, CKD 3 (baseline 1.1, eGFR 45), R breast cancer s/p lumpectomy, BPPV who presented to [facility] for evaluation of persistent cough, subsequently found to have narrow- complex tachyarrhythmia on arrival. Tachyarrhythmia Patient with known history of intermittent SVT, as demonstrated in event monitor 09/2021 and reported symptoms Upon arrival in the ER, patient was found to have ventricular rates in the 160s with normal blood pressure and saturation, but in the setting of active cough. Levothyroxine also started this week. ECG revealing of what appears to be narrow complex tachyarrhythmia with intermittent P waves, possibly consistent with multifocal atrial tachycardia in the setting of acute pulmonary disease CTA chest ordered in ED: pending Check TTE in AM Status post diltiazem and digoxin load in the ED Initiate metoprolol tartrate 12.5 mg twice daily Treat respiratory infection Maintain K over 4, mag over 2 Patient did convert back to sinus rhythm following administration of digoxin. Should there be continued concern for atrial fibrillation/flutter, [id number] is 3, however patient is not interested in anticoagulation. (2) Viral URI with cough: Plan: In the setting of positive rhinovirus/enterovirus detected on [employer] PCR in 11/15/2021 COVID-negative x2 Her CBC does not reveal an elevated white count, and does demonstrate relative monocytosis and lymphopenia and negative procal; in the setting of transaminitis, suspect that her symptoms likely represent viral bronchitis Chest x-ray not revealing of any acute infiltrative processes on my review Treat conservatively with antitussives, Mucinex and Hycodan and scheduled Tessalon CTA of the chest ordered in the emergency room, pending No evidence of acute bacterial process at this time. We will continue to monitor. Hold from antibiotics. Can consider azithromycin for pulmonary anti- inflammatory properties / atypical infections if needed. Xopenex as needed for shortness of breath (3) Hyponatremia: Plan: Patient with intermittent history of hyponatremia, documented back to 2018 On arrival in the ED, sodium 132 (from 127 on 11/15) Possibly related to SIADH in the setting of acute pulmonary infection Recollect in a.m.; if still persistently low, can draw serum osmole's, check urine studies, and consider fluid restriction/salt tab if indicated (4) Hypothyroidism: Plan: TSH on 11/03 at 5.67; started on levothyroxine 25 mcg this week TSH on arrival at 0.981 Continue levothyroxine (5) CKD (chronic kidney disease) stage 3, GFR 30-59 ml/min: Plan: 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 Follows with Dr. 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 Of note, patient was seen in the ED on 11/15 for cough and mild sore throat, alongside mild shortness of breath; her chest x-ray at that time did not demonstrate any evidence of infiltrative process. She says that over the last week, she has had a persistent cough. It started with a sore throat. She said that over the last 3 days since her ER visit, she has felt mildly more short of breath with the coughing. She denies any chest pain or pressure. Denies any nausea or vomiting. Endorses a good appetite. Does endorse some chills and subjective fevers at home. She said that over the last 4 to 5 months, she has had several episodes of palpitations where she felt her heart "thumping." She denies any pain associated with them. She does tell me that back during a hospital stay many years ago, she had an episode of AFib. Per PCP notes, apparently did have an episode of SVT noted on her event monitor in 09/2021. Medications include vitamin C, vitamin D, copper, levothyroxine 25 mcg daily, magnesium, vitamin A, vitamin E, zinc. In the emergency room, patient was found to have blood pressure 110/70 with supraventricular tachyarrhythmia rate 161, SPO2 92% on room air. Did have desaturation to high 80s which required 2L NC. Labs demonstrate normal white count with relative lymphopenia and monocytosis, sodium 132, potassium 4.3, magnesium 2, mild transaminitis (AST 60/ALT 66), high-sensitivity troponin 18, negative Pro-Amadeo and TSH. [employer] PCR on 11/15 was positive for Entero/Rhinov irus. ECG demonstrated a narrow complex tachyarrhythmia with some intermittent P waves seen throughout, possibly ?MAT. She received 25 mg of IV diltiazem. Following administration of this, her pressures became softer in the low 100s (systolic). She was then loaded with digoxin. Allergies Allergy/AdvReac Type Severity Reaction Status Date / Time tetracycline Allergy Mild RASH? Verified 11/19/21 02:53 tamoxifen AdvReac Severe Diarrhea Verified 11/19/21 05:39 Home Medications Medication Instructions Recorded Confirmed Type ascorbic acid (vitamin C) 500 mg 500 mg PO QAM 09/10/20 11/19/21 History tablet (Vitamin C) cholecalciferol (vitamin D3) 25 25 mcg PO 3XWK 09/10/20 11/19/21 History mcg (1,000 unit) capsule (Vitamin D3) vitamin E 400 unit capsule 400 unit PO 3XWK 09/10/20 11/19/21 History copper 2 mg tablet 1 mg PO DAILY tab 11/08/20 11/19/21 History vitamin A palmitate 1 tab PO DAILY 11/08/20 11/19/21 History levothyroxine 25 mcg tablet 25 mcg PO DAILY #90 tab 11/03/21 11/19/21 Rx magnesium citrate 100 mg capsule 100 mg PO DAILY PRN 11/15/21 11/19/21 History zinc gluconate 30 mg tablet 30 mg PO DAILY 11/15/21 11/19/21 History Past Med/Surg History Medical History (Updated 11/19/21 @ 04:15 by Philipp Aleman MD) Abnormal finding on mammography Asymptomatic menopausal state Cataract CKD (chronic kidney disease) stage 3, GFR 30-59 ml/min Dizziness "recurrent viral infection undiagnosed, only every few years" Elevated blood pressure reading without diagnosis of hypertension History of breast cancer Right side, "WLE", stage 1 cancer, declined chemo/radiation, monitored with mamogram and cbc Leg pain, left hx calf, tx therapy, healed "in 3 years" Osteoarthritis Surgical History History of bilateral tubal ligation History of cataract surgery History of lumpectomy of right breast History of nephrectomy History of tonsillectomy Social History Smoking Status: Never smoker Second Hand Exposure: No; Hx Alcohol Use: Yes Alcohol type: wine Hx Substance Use: No Preferred Language: Upper Sorbian Communication Ability: Effective General Forecaster Required: No Beliefs That Will Affect Care: None Current Living Situation: Alone Other Information That Helps Us Care for You: No Feels Safe at Home: Yes Safety Concerns: Feels Safe At This Time Assistive Devices: Glasses Review of Systems Review of Systems: as per HPI Physical Exam Physical Exam: General: 85-year old female who appears tired, but is alert, oriented, and appears in no acute distress. HEENT: NCAT. - Eyes - Sclera are white, anicteric, and without injection. - Mouth - MMM, mild pharyngeal erythema without exudates - Neck - supple, no appreciable JVD Cardiac: Normal rate and regular rhythm; S1 and S2 present with no murmurs, rubs, or gallops. Pulmonary: Frequent cough noted. Good respiratory effort with symmetric expansion of the chest. No use of accessory muscles. Lungs were clear to auscultation bilaterally with no crackles or wheezes. Abdominal: Normoactive bowel sounds. Abdomen was soft, nondistended, and non- tender to palpation. Extremities: Upper and lower extremities are warm and well perfused. No peripheral edema in the lower extremities bilaterally Results & Data Results & Data ([facility]) Vital Signs (Past 12 Hours) Vital Signs Temp Pulse Pulse Resp BP BP Pulse Ox 11/19/21 02:32 163 H 18 103/60 93 11/19/21 02:10 162 H 18 110/66 91 11/19/21 02:05 166 H 22 99/80 L 92 11/19/21 02:00 153 H 22 121/88 92 11/19/21 01:55 167 H 22 123/87 91 11/19/21 01:50 150 H 18 126/72 92 11/19/21 01:49 163 H 22 113/89 91 11/19/21 01:19 37.0 C 161 H 18 115/68 92 Laboratory Results Laboratory Results WBC 5.00 K/uL (4.8-10.8) 11/19/21 01:34 RBC 4.46 M/uL (4.2-5.4) 11/19/21 01:34 Hgb 13.9 g/dL (12.0-16.0) 11/19/21 01:34 Hct 40.6 % (37-47) 11/19/21 01:34 MCV 91.0 fL (80-100) 11/19/21 01:34 MCH 31.2 pg (25-34) 11/19/21 01:34 MCHC 34.2 g/dL (32-36) 11/19/21 01:34 RDW Std Deviation 45.3 fL (36.4-46.3) 11/19/21 01:34 RDW Coeff of Moose 13.6 % (11.5-14.5) 11/19/21 01:34 Plt Count 194 K/uL (130-400) 11/19/21 01:34 MPV 10.9 fL (7.4-10.4) H 11/19/21 01:34 Immature Gran % (Auto) 0.6 % 11/19/21 01:34 Neut % (Auto) 65.8 % 11/19/21 01:34 Lymph % (Auto) 19.4 % 11/19/21 01:34 [place] % (Auto) 14.0 % 11/19/21 01:34 Eos % (Auto) 0.0 % 11/19/21 01:34 Baso % (Auto) 0.2 % 11/19/21 01:34 Neut # (Auto) 3.29 K/uL (1.4-6.5) 11/19/21 01:34 Lymph # (Auto) 0.97 K/uL (1.2-3.4) L 11/19/21 01:34 [place] # (Auto) 0.70 K/uL (0.11-0.59) H 11/19/21 01:34 Eos # (Auto) 0.00 K/uL (0-0.5) 11/19/21 01:34 Baso # (Auto) 0.01 K/uL (0-0.2) 11/19/21 01:34 Immature Gran # (Auto) 0.03 K/uL (0.00-0.02) H 11/19/21 01:34 PT 9.9 Seconds (9.0-12.0) 11/19/21 01:34 INR 0.9 (0.9-1.1) 11/19/21 01:34 APTT 24.7 Seconds (21.0-31.0) 11/19/21 01:34 PTT Ratio 0.9 11/19/21 01:34 Sodium 132 mmol/L (136-145) L 11/19/21 01:34 Potassium 4.3 mmol/L (3.5-5.1) 11/19/21 01:34 Chloride 98 mmol/L (98-107) 11/19/21 01:34 Carbon Dioxide 26 mmol/L (21-32) 11/19/21 01:34 Anion Gap 8 (3-11) 11/19/21 01:34 BUN 21 mg/dl (6-23) 11/19/21 01:34 Creatinine 1.07 mg/dl (0.6-1.2) 11/19/21 01:34 Est Cr Clr Drug Dosing 31.0 ml/min 11/19/21 01:34 Est GFR ( Amer) 55.2 ml/min 11/19/21 01:34 Est GFR (Non-Af Amer) 47.6 ml/min 11/19/21 01:34 BUN/Creatinine Ratio 19.6 (10-20) 11/19/21 01:34 Glucose 140 mg/dl (70-99(Fasting)) H 11/19/21 01:34 Lactate 0.8 mmol/L (0.4-2.0) 11/19/21 03:28 Calcium 9.4 mg/dl (8.5-10.1) 11/19/21 01:34 Magnesium 2.0 mg/dl (1.7-2.4) 11/19/21 01:34 Total Bilirubin 0.7 mg/dl (0.2-1.0) 11/19/21 01:34 Direct Bilirubin 0.2 mg/dl (0-0.2) 11/19/21 01:34 AST 60 U/L (13-39) H 11/19/21 01:34 ALT 66 U/L (7-52) H 11/19/21 01:34 Alkaline Phosphatase 85 U/L (34-104) 11/19/21 01:34 Troponin I High Sens 17.9 pg/ml (0-14) H 11/19/21 01:34 Total Protein 7.3 gm/dl (6.0-8.3) 11/19/21 01:34 Albumin 4.3 gm/dl (3.4-5.0) 11/19/21 01:34 Procalcitonin < 0.05 ng/ml (0-0.5) 11/19/21 01:34 TSH 0.981 uIu/ml (0.300-4.500) 11/19/21 01:34 SARS-CoV-2, RNA, NAAT NEGATIVE (NEGATIVE) 11/19/21 01:40 Supervising Physician Co-Signing Physician Notes Patient seen and examined, chart reviewed, case discussed with Dr Aleman and I agree with the assessment and plan as above. In brief, patient is an 85yo female with several days of URI presenting with ongoing cough, subjective fever at home. Tachycardic on arrival with HR 160's - ?atrial flutter ?MFAT. Patient administered Diltiazem in ER with minimal response in heart rate. She was then given digoxin and converted to NSR. She denies complaints at present aside from ongoing cough and fatigue. On exam she is afebrile, HD stable +dry cough +S1/S2, regular Lungs CTA with no rales/rhonchi/wheezes Abd soft, NT/ND Ext - warm, well perfused, no clubbing/cyanosis or edema Labs and images reviewed Ga=860 Trop=17.9 Assessment/Plan Patient with normal WBC, normal procal and no infiltrate appreciated on CXR. Afebrile. No antibiotics at this time for ongoing cough. Suspect post-viral cough syndrome Atrial flutter vs MFAT - now in NSR s/p Diltiazem and Digoxin. Will initiate Metoprolol 12.5mg po BID for ongoing rate control. Patient does not wish to start anticoagulation at this time. Resident Activity Tracking Resident Involvement: Resident Care Provided Care Provided: Adult [facility] Medicine
[2021-11-19] MEDS ORDERED: HYDROcodone/HOMATROPINE SYRUP 5MG/1.5MG 5ML UDP PO STA (04:26)
[2021-11-19] MEDS ORDERED: OPTIRAY 320 125ml IV ONE (04:58)
[2021-11-19] MEDS ORDERED: LEVALBUTEROL TARTRATE 15 GM HFA.AER.AD INH PRN (05:10)
[2021-11-19] MEDS ORDERED: NON-FORMULARY MEDICATION (Magnesium Citrate 100 mg Capsule) PO PRN (05:10)
[2021-11-19] MEDS: ACETAMINOPHEN 325 MG TAB PO PRN ×2 (05:16→15:58)
--- NOTE | 2021-11-19 06:07 | Emergency Department Note ---
Impression & Plan Upper respiratory infection, viral, Atrial flutter with rapid ventricular response, Elevated troponin Admit to the [facility], [place] service ED Provider Note NAME: SHASHI KOROMA AGE: 85 SEX: F ARRIVES VIA: Walk-In INFORMANT: Patient ED PROVIDER(S): Elsa Selby DO CHIEF COMPLAINT: Cough and tightness in her throat PLAN: Disposition: Admit to the [facility] [place] service Condition: Fair MEDICAL DECISION MAKING: This is an 85-year-old female patient who was diagnosed a week ago with a viral URI with a significant cough. She recently finished a course of prednisone and developed a tightness in her throat tonight that was concerning for her. She drove herself to the emergency department tonight because of this feeling of tightness in her throat. Upon presentation to the ER, she was noted to be in a rapid A. fib. The patient has been ordered IV digoxin for the persistent tachycardia dysrhythmia but prior to its administration, the patient broke into a normal sinus rhythm. Triage Nursing notes reviewed and agree with them. Vital Signs: reviewed and remarkable for tachycardia Differential diagnosis: Medication side effects, cardiac ischemia, tacky dysrhythmia, CHF, pneumonia Diagnostics interpreted by me: ECG: Atrial flutter at a rate of [address] segment depression inferiorly and laterally. This is concerning for ischemia Cardiac Monitoring: Atrial flutter at a rate of 148 Laboratory studies: See below Imaging studies: As per stat read CTA chest: No evidence of pneumonia or pulmonary edema. There is bilateral diffuse bronchial wall thickening HPI: 85/F arrives for evaluation of throat tightness and tachycardia. The patient was preparing for bed when she developed a tightness in her throat thought to be secondary to the significant cough she has had over the past week. Upon presentation to the emergency department, the patient noted that her heart was beating very fast. She was found to be in atrial flutter with a rapid ventricular response. ROS: See above HPI for pertinent positives & negatives. A total of 10 systems reviewed and were otherwise negative. PAST MEDICAL HISTORY:See Below PAST SURGICAL HISTORY:See Below FAMILY HISTORY:See Below SOCIAL HISTORY:See Below HOME MEDICATIONS: See list ALLERGIES: See list VITALS:See Below PHYSICAL EXAMINATION: HEENT: Head - normocephalic and atraumatic Pupils are equal, round, and reactive to light. Extraocular eye muscles are intact, and sclera are anicteric. Nose - moist nasal mucosa without discharge. Mouth - moist buccal mucosa. Oropharynx is nonerythematous and there is no tonsillar exudate or edema noted. Neck: Supple; no cervical lymphadenopathy or nuchal rigidity Heart: Tachycardic rhythm with a regular rate there is a normal S1 and S2 with no murmurs, clicks, or gallops appreciated. Lungs: Significant upper respiratory sounds with no obvious wheezing or rhonchi Abdomen: Soft, completely nontender, nondistended, with good bowel sounds. There are no palpable pulsatile masses or hepatosplenomegaly. There is no guarding, rigidity, or rebound noted. Extremities: No evidence of cyanosis, clubbing, or edema. There are easily palpable peripheral pulses. Skin: warm and dry with good turgor and no rashes. ED COURSE: Times/Reassessments: The patient was evaluated in room B8. A complete history and physical was performed. Previous electronic medical records were reviewed. An order was placed for continuous cardiac monitoring. The patient was in atrial flutter with a rapid ventricular response at a rate of 148. A twelve-lead EKG was obtained. A chest x-ray was performed. The patient was ordered to have IV digoxin for rate control but prior to giving it, the patient converted into a normal sinus rhythm. Patient was noted to have an elevated troponin. I discussed the case with the [facility] Hospitalist and they will evaluate for further management. Elsa Selby DO Past Med/Surg History Medical History (Updated 11/20/21 @ 15:22 by Elsa Selby DO) Abnormal finding on mammography Asymptomatic menopausal state Cataract CKD (chronic kidney disease) stage 3, GFR 30-59 ml/min Dizziness "recurrent viral infection undiagnosed, only every few years" Elevated blood pressure reading without diagnosis of hypertension History of breast cancer Right side, "WLE", stage 1 cancer, declined chemo/radiation, monitored with mamogram and cbc Leg pain, left hx calf, tx therapy, healed "in 3 years" Osteoarthritis Surgical History History of bilateral tubal ligation History of cataract surgery History of lumpectomy of right breast History of nephrectomy History of tonsillectomy Social History Smoking Status: Never smoker Second Hand Exposure: No; Hx Alcohol Use: Yes Alcohol type: wine Hx Substance Use: No Preferred Language: Ukrainian Communication Ability: Effective Law Librarian Required: No Beliefs That Will Affect Care: None Current Living Situation: Alone Other Information That Helps Us Care for You: No Feels Safe at Home: Yes Safety Concerns: Feels Safe At This Time Assistive Devices: Glasses Allergies Allergies Allergy/AdvReac Type Severity Reaction Status Date / Time tetracycline Allergy Mild RASH? Verified 11/19/21 02:53 tamoxifen AdvReac Severe Diarrhea Verified 11/19/21 05:39 Home Meds Home Medications Medication Instructions Recorded Confirmed ascorbic acid (vitamin C) 500 mg 500 mg PO QAM 09/10/20 11/19/21 tablet (Vitamin C) cholecalciferol (vitamin D3) 25 25 mcg PO [id number] 09/10/20 11/19/21 mcg (1,000 unit) capsule (Vitamin D3) vitamin E 400 unit capsule 400 unit PO [id number] 09/10/20 11/19/21 copper 2 mg tablet 1 mg PO DAILY tab 11/08/20 11/19/21 vitamin A palmitate 1 tab PO DAILY 11/08/20 11/19/21 magnesium citrate 100 mg capsule 100 mg PO DAILY PRN 11/15/21 11/19/21 zinc gluconate 30 mg tablet 30 mg PO DAILY 11/15/21 11/19/21 Previous Rx's Medication Instructions Recorded levothyroxine 25 mcg tablet 25 mcg PO DAILY #90 tab 11/03/21 Results & Data (ED) Vital Signs Vital Signs - 24 hr 11/19/21 15:48 11/19/21 19:15 11/19/21 20:25 Temperature 38.2 C H 37.3 C Temperature Source Oral Oral Pulse Rate Pulse Rate [Finger] 65 71 Pulse Rhythm [Finger] Regular Pulse Strength [Finger] Normal Respiratory Rate 19 19 Respiratory Effort / Characteristics Non-Labored Spontaneous SOB on Exertion Non-Labored Spontaneous SOB on Exertion Respiratory Depth Normal Normal Respiratory Pattern Regular Regular Blood Pressure Blood Pressure [Right Arm] 147/72 H 126/77 Blood Pressure Mean [Right Arm] 97 93 Blood Pressure Position [Right Arm] Sitting Lying Pulse Oximetry 95 96 Oxygen Delivery Method Nasal Cannula Nasal Cannula Nasal Cannula Oxygen Flow Rate 2 3 2 11/19/21 23:55 11/19/21 23:57 11/20/21 02:30 Temperature 36.8 C 38.3 C H Temperature Source Oral Oral Pulse Rate 65 Pulse Rate [Finger] 68 156 H Pulse Rhythm [Finger] Regular Pulse Strength [Finger] Normal Respiratory Rate 18 20 Respiratory Effort / Characteristics Non-Labored Spontaneous SOB on Exertion Non-Labored Spontaneous Respiratory Depth Normal Normal Respiratory Pattern Blood Pressure Blood Pressure [Right Arm] 129/68 120/66 Blood Pressure Mean [Right Arm] 88 84 Blood Pressure Position [Right Arm] Lying Lying Pulse Oximetry 97 96 Oxygen Delivery Method Nasal Cannula Nasal Cannula Oxygen Flow Rate 3 4 11/20/21 04:03 11/20/21 05:19 11/20/21 05:26 Temperature 37.5 C Temperature Source Oral Pulse Rate 162 H Pulse Rate [Finger] 164 H 155 H Pulse Rhythm [Finger] Pulse Strength [Finger] Respiratory Rate 19 Respiratory Effort / Characteristics Respiratory Depth Normal Respiratory Pattern Blood Pressure 122/74 Blood Pressure [Right Arm] 121/72 118/73 Blood Pressure Mean [Right Arm] 88 88 Blood Pressure Position [Right Arm] Lying Lying Pulse Oximetry 94 Oxygen Delivery Method Nasal Cannula Oxygen Flow Rate 4 11/20/21 05:54 Temperature Temperature Source Pulse Rate Pulse Rate [Finger] 159 H Pulse Rhythm [Finger] Pulse Strength [Finger] Respiratory Rate Respiratory Effort / Characteristics Respiratory Depth Respiratory Pattern Blood Pressure Blood Pressure [Right Arm] 106/71 Blood Pressure Mean [Right Arm] 82 Blood Pressure Position [Right Arm] Lying Pulse Oximetry Oxygen Delivery Method Oxygen Flow Rate Laboratory Data Result diagrams: 11/20/21 07:46 11/20/21 09:18 Lab Results 11/19/21 11/19/21 11/19/21 Range/Units 01:34 01:34 01:34 WBC 5.00 (4.8-10.8) K/uL RBC 4.46 (4.2-5.4) M/uL Hgb 13.9 (12.0-16.0) g/dL Hct 40.6 (37-47) % MCV 91.0 (80-100) fL MCH 31.2 (25-34) pg MCHC 34.2 (32-36) g/dL RDW Std Deviation 45.3 (36.4-46.3) fL RDW Coeff of Moose 13.6 (11.5-14.5) % Plt Count 194 (130-400) K/uL MPV 10.9 H (7.4-10.4) fL Immature Gran % (Auto) 0.6 % Neut % (Auto) 65.8 % Lymph % (Auto) 19.4 % Dixon % (Auto) 14.0 % Eos % (Auto) 0.0 % Baso % (Auto) 0.2 % Neut # (Auto) 3.29 (1.4-6.5) K/uL Lymph # (Auto) 0.97 L (1.2-3.4) K/uL Dixon # (Auto) 0.70 H (0.11-0.59) K/uL Eos # (Auto) 0.00 (0-0.5) K/uL Baso # (Auto) 0.01 (0-0.2) K/uL Immature Gran # (Auto) 0.03 H (0.00-0.02) K/uL PT 9.9 (9.0-12.0) Seconds INR 0.9 (0.9-1.1) APTT 24.7 (21.0-31.0) Seconds PTT Ratio 0.9 Sodium 132 L (136-145) mmol/L Potassium 4.3 (3.5-5.1) mmol/L Chloride 98 (98-107) mmol/L Carbon Dioxide 26 (21-32) mmol/L Anion Gap 8 (3-11) BUN 21 (6-23) mg/dl Creatinine 1.07 (0.6-1.2) mg/dl Est Cr Clr Drug Dosing 31.0 ml/min Est GFR ( Amer) 55.2 ml/min Est GFR (Non-Af Amer) 47.6 ml/min BUN/Creatinine Ratio 19.6 (10-20) Glucose 140 H (70-99(Fasting)) mg/dl Osmolality (280-300) mOsm/kg Lactate (0.4-2.0) mmol/L Calcium 9.4 (8.5-10.1) mg/dl Magnesium 2.0 (1.7-2.4) mg/dl Total Bilirubin 0.7 (0.2-1.0) mg/dl Direct Bilirubin 0.2 (0-0.2) mg/dl AST 60 H (13-39) U/L ALT 66 H (7-52) U/L Alkaline Phosphatase 85 (34-104) U/L Troponin I High Sens 17.9 H (0-14) pg/ml Total Protein 7.3 (6.0-8.3) gm/dl Albumin 4.3 (3.4-5.0) gm/dl Procalcitonin (0-0.5) ng/ml TSH (0.300-4.500) uIu/ml Ur Random Sodium mmol/L SARS-CoV-2, RNA, NAAT (NEGATIVE) 11/19/21 11/19/21 11/19/21 Range/Units 01:34 01:34 01:40 WBC (4.8-10.8) K/uL RBC (4.2-5.4) M/uL Hgb (12.0-16.0) g/dL Hct (37-47) % MCV (80-100) fL MCH (25-34) pg MCHC (32-36) g/dL RDW Std Deviation (36.4-46.3) fL RDW Coeff of Moose (11.5-14.5) % Plt Count (130-400) K/uL MPV (7.4-10.4) fL Immature Gran % (Auto) % Neut % (Auto) % Lymph % (Auto) % Dixon % (Auto) % Eos % (Auto) % Baso % (Auto) % Neut # (Auto) (1.4-6.5) K/uL Lymph # (Auto) (1.2-3.4) K/uL Dixon # (Auto) (0.11-0.59) K/uL Eos # (Auto) (0-0.5) K/uL Baso # (Auto) (0-0.2) K/uL Immature Gran # (Auto) (0.00-0.02) K/uL PT (9.0-12.0) Seconds INR (0.9-1.1) APTT (21.0-31.0) Seconds PTT Ratio Sodium (136-145) mmol/L Potassium (3.5-5.1) mmol/L Chloride (98-107) mmol/L Carbon Dioxide (21-32) mmol/L Anion Gap (3-11) BUN (6-23) mg/dl Creatinine (0.6-1.2) mg/dl Est Cr Clr Drug Dosing ml/min Est GFR ( Amer) ml/min Est GFR (Non-Af Amer) ml/min BUN/Creatinine Ratio (10-20) Glucose (70-99(Fasting)) mg/dl Osmolality (280-300) mOsm/kg Lactate (0.4-2.0) mmol/L Calcium (8.5-10.1) mg/dl Magnesium (1.7-2.4) mg/dl Total Bilirubin (0.2-1.0) mg/dl Direct Bilirubin (0-0.2) mg/dl AST (13-39) U/L ALT (7-52) U/L Alkaline Phosphatase (34-104) U/L Troponin I High Sens (0-14) pg/ml Total Protein (6.0-8.3) gm/dl Albumin (3.4-5.0) gm/dl Procalcitonin < 0.05 (0-0.5) ng/ml TSH 0.981 (0.300-4.500) uIu/ml Ur Random Sodium mmol/L SARS-CoV-2, RNA, NAAT NEGATIVE (NEGATIVE) 11/19/21 11/19/21 11/19/21 Range/Units 03:28 06:15 06:20 WBC (4.8-10.8) K/uL RBC (4.2-5.4) M/uL Hgb (12.0-16.0) g/dL Hct (37-47) % MCV (80-100) fL MCH (25-34) pg MCHC (32-36) g/dL RDW Std Deviation (36.4-46.3) fL RDW Coeff of Moose (11.5-14.5) % Plt Count (130-400) K/uL MPV (7.4-10.4) fL Immature Gran % (Auto) % Neut % (Auto) % Lymph % (Auto) % Dixon % (Auto) % Eos % (Auto) % Baso % (Auto) % Neut # (Auto) (1.4-6.5) K/uL Lymph # (Auto) (1.2-3.4) K/uL Dixon # (Auto) (0.11-0.59) K/uL Eos # (Auto) (0-0.5) K/uL Baso # (Auto) (0-0.2) K/uL Immature Gran # (Auto) (0.00-0.02) K/uL PT (9.0-12.0) Seconds INR (0.9-1.1) APTT (21.0-31.0) Seconds PTT Ratio Sodium (136-145) mmol/L Potassium (3.5-5.1) mmol/L Chloride (98-107) mmol/L Carbon Dioxide (21-32) mmol/L Anion Gap (3-11) BUN (6-23) mg/dl Creatinine (0.6-1.2) mg/dl Est Cr Clr Drug Dosing ml/min Est GFR ( Amer) ml/min Est GFR (Non-Af Amer) ml/min BUN/Creatinine Ratio (10-20) Glucose (70-99(Fasting)) mg/dl Osmolality 290 (280-300) mOsm/kg Lactate 0.8 (0.4-2.0) mmol/L Calcium (8.5-10.1) mg/dl Magnesium (1.7-2.4) mg/dl Total Bilirubin (0.2-1.0) mg/dl Direct Bilirubin (0-0.2) mg/dl AST (13-39) U/L ALT (7-52) U/L Alkaline Phosphatase (34-104) U/L Troponin I High Sens 16.4 H (0-14) pg/ml Total Protein (6.0-8.3) gm/dl Albumin (3.4-5.0) gm/dl Procalcitonin (0-0.5) ng/ml TSH (0.300-4.500) uIu/ml Ur Random Sodium mmol/L SARS-CoV-2, RNA, NAAT (NEGATIVE) 11/19/21 11/19/21 Range/Units 12:25 Unknown WBC (4.8-10.8) K/uL RBC (4.2-5.4) M/uL Hgb (12.0-16.0) g/dL Hct (37-47) % MCV (80-100) fL MCH (25-34) pg MCHC (32-36) g/dL RDW Std Deviation (36.4-46.3) fL RDW Coeff of Moose (11.5-14.5) % Plt Count (130-400) K/uL MPV (7.4-10.4) fL Immature Gran % (Auto) % Neut % (Auto) % Lymph % (Auto) % Dixon % (Auto) % Eos % (Auto) % Baso % (Auto) % Neut # (Auto) (1.4-6.5) K/uL Lymph # (Auto) (1.2-3.4) K/uL Dixon # (Auto) (0.11-0.59) K/uL Eos # (Auto) (0-0.5) K/uL Baso # (Auto) (0-0.2) K/uL Immature Gran # (Auto) (0.00-0.02) K/uL PT (9.0-12.0) Seconds INR (0.9-1.1) APTT (21.0-31.0) Seconds PTT Ratio Sodium 131 L (136-145) mmol/L Potassium 4.9 (3.5-5.1) mmol/L Chloride 99 (98-107) mmol/L Carbon Dioxide 27 (21-32) mmol/L Anion Gap 5 (3-11) BUN 21 (6-23) mg/dl Creatinine 1.10 (0.6-1.2) mg/dl Est Cr Clr Drug Dosing 30.1 ml/min Est GFR ( Amer) 53.4 ml/min Est GFR (Non-Af Amer) 46.1 ml/min BUN/Creatinine Ratio 19.1 (10-20) Glucose 128 H (70-99(Fasting)) mg/dl Osmolality (280-300) mOsm/kg Lactate (0.4-2.0) mmol/L Calcium 8.6 (8.5-10.1) mg/dl Magnesium (1.7-2.4) mg/dl Total Bilirubin (0.2-1.0) mg/dl Direct Bilirubin (0-0.2) mg/dl AST (13-39) U/L ALT (7-52) U/L Alkaline Phosphatase (34-104) U/L Troponin I High Sens (0-14) pg/ml Total Protein (6.0-8.3) gm/dl Albumin (3.4-5.0) gm/dl Procalcitonin (0-0.5) ng/ml TSH (0.300-4.500) uIu/ml Ur Random Sodium 38 mmol/L SARS-CoV-2, RNA, NAAT (NEGATIVE) Administered Medications Acetaminophen (Acetaminophen 325 Mg Tab) 650 mg PO Q4H PRN PRN Reason: pain/fever Stop: 12/19/21 03:59 Last Admin: 11/20/21 02:31 Dose: 650 mg Documented by: [id number] Admin: 11/19/21 15:58 Dose: 650 mg Documented by: [id number] Admin: 11/19/21 05:16 Dose: 650 mg Documented by: [id number] Ascorbic Acid (Ascorbic Acid 500 Mg Tab) 500 mg PO QAM [facility] Stop: 12/19/21 08:59 Last Admin: 11/20/21 07:17 Dose: 500 mg Documented by: [id number] Admin: 11/19/21 08:31 Dose: 500 mg Documented by: [id number] Benzonatate (Benzonatate 100 Mg Capsule) 100 mg PO TID [facility] Stop: 12/19/21 08:59 Last Admin: 11/20/21 13:28 Dose: 100 mg Documented by: [id number] Admin: 11/20/21 07:17 Dose: 100 mg Documented by: [id number] Admin: 11/19/21 20:29 Dose: 100 mg Documented by: [id number] Admin: 11/19/21 13:49 Dose: 100 mg Documented by: [id number] Admin: 11/19/21 08:31 Dose: 100 mg Documented by: [id number] Guaifenesin (Guaifenesin 600 Mg Tabcr) 600 mg PO Q12 [facility] Stop: 12/19/21 08:59 Last Admin: 11/20/21 10:49 Dose: 600 mg Documented by: [id number] Admin: 11/19/21 20:29 Dose: 600 mg Documented by: [id number] Admin: 11/19/21 08:31 Dose: 600 mg Documented by: [id number] Hydrocodone Bit/Homatropine Methylb (Hydrocodone/Homatropine Syrup 5mg/1.5mg 5ml Udp) 5 ml PO Q8H PRN PRN Reason: Cough Stop: 12/03/21 04:25 Last Admin: 11/19/21 13:49 Dose: 5 ml Documented by: [id number] Levothyroxine Sodium (Levothyroxine Sodium 25 Mcg Tablet) 25 mcg PO DAILYBB [facility] Stop: 12/19/21 06:29 Last Admin: 11/20/21 06:33 Dose: 25 mcg Documented by: [id number] Admin: 11/19/21 06:24 Dose: 25 mcg Documented by: [id number] Discontinued Medications Diltiazem HCl (Diltiazem Hcl 5 Mg/Ml 5 Ml Vial) Confirm Administered Dose 25 mg IV .STK-MED ONE Stop: 11/19/21 01:42 Last Increment: 11/19/21 02:05 Dose: 10 mg Documented by: [id number] Increment: 11/19/21 01:41 Dose: 10 mg Documented by: [id number] Cosigned by: [id number] Hydrocodone Bit/Homatropine Methylb (Hydrocodone/Homatropine Syrup 5mg/1.5mg 5ml Udp) 5 ml PO NOW STA Stop: 11/19/21 04:27 Last Admin: 11/19/21 05:16 Dose: 5 ml Documented by: [id number] Digoxin 250 mcg/ Syringe 10 mls @ 2 mls/min IV ONE ONE Stop: 11/19/21 03:01 Last Admin: 11/19/21 03:53 Dose: Not Given Documented by: [id number] Diltiazem HCl 125 mg/ Dextrose 125 mls @ 0 mls/hr IV .Q0M [facility]; Protocol Stop: 12/20/21 05:59 Last Titration: 11/20/21 13:38 Dose: 0 mg/hr, 0 mls/hr Documented by: [id number] Cosigned by: [id number] Titration: 11/20/21 12:37 Dose: 5 mg/hr, 5 mls/hr Documented by: [id number] Cosigned by: [id number] Titration: 11/20/21 07:32 Dose: 10 mg/hr, 10 mls/hr Documented by: [id number] Cosigned by: [id number] Admin: 11/20/21 06:31 Dose: 5 mg/hr, 5 mls/hr Documented by: [id number] Cosigned by: [id number] Digoxin 250 mcg/ Syringe 10 mls @ 2 mls/min IV ONE ONE Stop: 11/20/21 09:49 Last Admin: 11/20/21 09:59 Dose: 2 mls/min Documented by: [id number] Ioversol (Optiray 320 125ml) 120 ml IV ONCE ONE Stop: 11/19/21 04:59 Last Admin: 11/19/21 04:59 Dose: 120 ml Documented by: [id number] Metoprolol Tartrate (Metoprolol Tartrate 1 Mg/Ml Vial) 5 mg IV NOW STA Stop: 11/19/21 01:33 Last Admin: 11/19/21 01:40 Dose: Not Given Documented by: [id number] Metoprolol Tartrate (Metoprolol Tartrate 25 Mg Tab) 12.5 mg PO BID VAL Stop: 12/19/21 08:59 Last Admin: 11/19/21 20:29 Dose: 12.5 mg Documented by: [id number] Admin: 11/19/21 09:47 Dose: 12.5 mg Documented by: [id number] Metoprolol Tartrate (Metoprolol Tartrate 1 Mg/Ml Vial) 2.5 mg IV NOW STA Stop: 11/20/21 04:11 Last Admin: 11/20/21 04:25 Dose: 2.5 mg Documented by: [id number] Metoprolol Tartrate (Metoprolol Tartrate 1 Mg/Ml Vial) Confirm Administered Dose 5 mg IV .STK-MED ONE Stop: 11/20/21 04:15 Last Admin: 11/20/21 04:20 Dose: Not Given Documented by: [id number] Metoprolol Tartrate (Metoprolol Tartrate 1 Mg/Ml Vial) 2.5 mg IV NOW STA Stop: 11/20/21 05:08 Last Admin: 11/20/21 05:19 Dose: 2.5 mg Documented by: [id number] Sodium Chloride (Sodium Chloride 1 Gm Tablet) 1 gm PO ONCE ONE Stop: 11/19/21 13:37 Last Admin: 11/19/21 13:49 Dose: 1 gm Documented by: [id number] Discharge Plan Visit Data Chief Complaint: Cough Stated Complaint: NONSTOP COUGH ED Provider: Elsa Selby Discharge Problem: Upper respiratory infection, viral, Atrial flutter with rapid ventricular response, Elevated troponin Patient Disposition: Admitted As Inpatient Discharge Instructions Interventions: ED Discharge Assessment Last Done: 11/19/21 04:31
[2021-11-19] MEDS: LEVOTHYROXINE SODIUM 25 MCG TABLET PO SCH (06:24)
--- NOTE | 2021-11-19 06:32 | Billing Data ---
Date of Service November 19, 2021 Coding Level of Care Code INT OBSERVATION CARE 50M LVL 2
--- NOTE | 2021-11-19 07:26 | XRay Report ---
XR chest 1V portable CLINICAL HISTORY: shortness of breath. Tachycardia. COMPARISON STUDY: Chest radiograph November 15, 2021. FINDINGS: Lung volumes are normal. Lungs are clear. There is no pneumothorax or pleural effusion. Car diac size is normal. Mediastinal contours are normal. There is no evidence for pulmonary edema. IMPRESSION: No acute cardiopulmonary findings. ACT 112: Negative or not required by law. Electronically signed by: Masood Tran M.D. 11/19/2021 7:25 AM
--- NOTE | 2021-11-19 07:33 | CT Scan Report ---
CT ANGIOGRAPHY OF THE CHEST, PULMONARY EMBOLUS PROTOCOL CLINICAL HISTORY: Chest pain. Shortness of breath. Evaluate for pulmonary embolus. COMPARISON STUDY: Chest radiograph November 19, 2021. TECHNIQUE: Following IV administration of 120 mL of Optiray, helical axial images of the chest were o btained utilizing the pulmonary embolus protocol. Maximal intensity projections and sagittal and cor onal reformats were viewed on an independent 3D workstation. IV contrast was administered without co mplication. Automated exposure control was utilized for the study. A dose lowering technique was ut ilized adhering to the principles of ALARA. CT DOSE: 254.74 mGy.cm FINDINGS: No pulmonary emboli are identified. There is no thoracic aortic dissection. Size of the he art is normal. No pericardial effusion is present. No enlarged axillary, mediastinal or hilar lymphad enopathy. No pneumothorax or pleural effusion is noted. Note is made of a Port-A-Cath thickening and multifocal mucus plugging. No consolidation is identified. No acute fracture or suspicious lesion wit hin the visualized bony defect. Visualized portions of the upper abdomen are clear. IMPRESSION: 1. No pulmonary emboli identified. 2. Left lower lobe bronchial wall thickening with mucus plugging. ACT 112: Negative or not required by law. Electronically signed by: Masood Tran M.D. 11/19/2021 7:31 AM
[2021-11-19] MEDS: guaiFENesin 600 MG TABCR PO SCH ×2 (08:31→20:29)
[2021-11-19] MEDS: BENZONATATE 100 MG CAPSULE PO SCH ×3 (08:31→20:29)
[2021-11-19] MEDS: ASCORBIC ACID 500 MG TAB PO SCH (08:31)
[2021-11-19] MEDS ORDERED: COPPER 2 MG PO SCH (09:00)
[2021-11-19] MEDS ORDERED: NON-FORMULARY MEDICATION (Zinc Gluconate 30 mg Tablet) PO SCH (09:00)
[2021-11-19] MEDS ORDERED: VITAMIN A PALMITATE PO SCH (09:00)
[2021-11-19] MEDS: METOPROLOL TARTRATE 25 MG TAB PO SCH ×2 (09:47→20:29)
--- NOTE | 2021-11-19 12:36 | Hospitalist Progress Note ---
Date of Service November 19, 2021 Assessment & Plan (1) Tachyarrhythmia: Plan: 85-year-old female with history of hypothyroidism recently started on levothyroxine, SVT noted on event monitor 09/2021, CKD 3 (baseline 1.1, eGFR 45), R breast cancer s/p lumpectomy, BPPV who presented to [facility] for evaluation of persistent cough, subsequently found to have narrow- complex tachyarrhythmia on arrival. Tachyarrhythmia Patient with known history of intermittent SVT, as demonstrated in event monitor 09/2021 and reported symptoms Upon arrival in the ER, patient was found to have ventricular rates in the 160s with normal blood pressure and saturation, but in the setting of active cough. Levothyroxine also started this week but I suspect this is less contributory, the main dumpcart driver of her tacycardia is likely the viral URI ECG revealing of what appears to be narrow complex tachyarrhythmia with intermittent P waves, possibly consistent with multifocal atrial tachycardia in the setting of acute pulmonary disease - Has since returned to normal sinus rhythm, rate-controlled s/p diltiazem + digoxin load in ER. BP stable. CTA Chest- no evidence of PE, +left lower lobe bronchial wall thickening + mucus plugging - Echocardiogram pending Initiated metoprolol tartrate 12.5 mg BID Maintain K over 4, Mg over 2 - CHADSVASC score of 3 if pt has atrial fibrillation/flutter - Pt is now clinically stable though echocardiogram pending to further evaluation of her tachyarrhythmia, anticipate d/c tomorrow if stable (2) Viral URI with cough: Plan: In the setting of positive rhinovirus/enterovirus detected on [employer] PCR in 11/15/2021 COVID-negative x2 - CBC less concerning for bacterial illness, CXR does not suggest pneumonia - Treating supportively with antitussives/decongestants- scheduled Tessalon and Mucinex, albuterol PRN - Currently 2L NC, O2 > 94%, wean as able (3) Hyponatremia: Plan: Patient with intermittent history of hyponatremia, documented back to 2018 Admission sodium 132 (up from 127 on 11/15) Possibly related to SIADH in the setting of acute pulmonary infection - Recheck later today- if still low then will pursue further workup including urine studies, serum osmolality (4) Hypothyroidism: Plan: TSH on 11/03 at 5.67; started on levothyroxine 25 mcg this week TSH on arrival at 0.981, do not suspect her levothyroxine is contributory to her tachycardia Continue levothyroxine (5) CKD (chronic kidney disease) stage 3, GFR 30-59 ml/min: Plan: 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 Follows with Dr. 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 Mcfarland. Agree with history, exam findings, assessment and plan of care as outlined. In brief, Ms. Polk is an 85 year old female with history of SVT, newly diagnosed hypothyroid, CKD Stage 3, and right breast cancer s/p lumpectomy admitted with cough and tachyarrhythmia. Feels well today other than lots of coughing. No shortness of breath or chest pain. No palpitations. VS and nursing notes reviewed. Heart with regular rate and rhythm. Lungs with good air movement throughout. Coarse breath sounds throughout Labs and imaging reviewed. 1. tachyarrhythmia. hx of intermittent SVT. EKG on admission showed multifocal atrial tachycardia. Now back in sinus. CTA Chest negative for PE, but does show lobe bronchial wall thickening with mucus plugging. TTE without regional wall motion abnormality, EF 60-65%, mild concentric LVH, mild to moderate tricuspid regurg. Continue metoprolol 12.5mg BID (started on admission). Continue CCM. 2. Viral URI. Positive for entero/rhinovirus on 11/15. COVID negative on admission. CXR without consolidation. CT Chest did show left lower lobe bronchial wall thickening with mucus plugging. Continue with tessalon and mucinex scheduled, hycodan PRN, levalbuterol PRN. 3. Hyponatremia. Admission Na 132. Likely secondary to acute process going on. Repeat BMP later this afternoon. 4. elevated AST/ALT. Possibly secondary to acute viral infection. Very mild elevation that I expect will improve. If increasing or plateaus, can consider additional abdominal imaging. 5. hypothyroid. New diagnosis and started levothyroxine 25mcg earlier this week. Continue. 6. CKD Stage 3. at baseline Cr of 1.1. 7. Breast cancer, right breast s/p lumpectomy. No chemo. Follows with Jossie Palma at [facility]. Other chronic issues stable and home meds continued. Dispo: pending clinical improvement. Anticipate that if she does not have another episodes of tachyarrhythmia and cough is improving, she can go home tomorrow. Of note, she is concerned about being admitted under "obs" due to Medicare payment/non-payment. Subjective No acute events overnight. Telemetry revealed pt was in sinus rhythm since 040, HR 50s-60s. Pt states she is still coughing a lot and feels the palpitations but denying any chest pain, lightheadedness or dyspnea. She expresses concern about being able to pay for her hospital visit Review of Systems Review of Systems: Per subjective Physical Exam Physical Exam: General: 85-year old female who appears tired, but is alert, oriented, and appears in no acute distress. HEENT: NCAT, moist mucous membranes, nasal cannula in place Cardiac: Normal rate and regular rhythm; S1 and S2 present with no murmurs, rubs, or gallops. Pulmonary: Frequent cough noted. Good respiratory effort with symmetric expansion of the chest. No use of accessory muscles. Lungs were clear to auscultation bilaterally with no crackles or wheezes. Extremities: capillary refill <2s b/l Results & Data Results & Data ([facility]) Vital Signs (Past 12 Hours) Vital Signs Temp Pulse Pulse Resp BP BP Pulse Ox 11/19/21 11:01 37.0 C 59 L 18 123/68 94 11/19/21 09:35 55 L 11/19/21 08:16 37.0 C 55 L 18 101/61 91 11/19/21 05:39 37.5 C 78 24 145/78 H 95 11/19/21 04:15 73 18 137/88 93 11/19/21 04:00 72 18 139/73 92 11/19/21 03:53 72 11/19/21 03:50 73 23 137/70 91 11/19/21 03:45 68 20 127/77 92 11/19/21 03:40 69 19 125/75 90 11/19/21 03:30 73 18 137/75 94 11/19/21 03:00 160 H 18 123/97 94 11/19/21 02:45 146 H 22 113/89 92 11/19/21 02:32 163 H 18 103/60 93 11/19/21 02:30 153 H 20 124/67 93 11/19/21 02:20 160 H 20 103/71 90 11/19/21 02:15 148 H 24 123/97 91 11/19/21 02:10 162 H 18 110/66 91 11/19/21 02:05 166 H 22 99/80 L 92 11/19/21 02:00 153 H 22 121/88 92 11/19/21 01:55 167 H 22 123/87 91 11/19/21 01:50 150 H 18 126/72 92 11/19/21 01:49 163 H 22 113/89 91 11/19/21 01:19 37.0 C 161 H 18 115/68 92 Resident Activity Tracking Resident Involvement: Resident Care Provided Care Provided: Adult Hospital Medicine
--- NOTE | 2021-11-19 13:10 | XCELERA ---
[id number]
[2021-11-19 13:16] LABS: BUN Creatinine Ratio 19.1 (10-20); Calcium 8.6 mg/dl (8.5-10.1); Creatinine Clr Calc Pharmacy 30.1 ml/min; Est GFR (African American) 53.4 ml/min; Est GFR (Non-African American) 46.1 ml/min; Potassium 4.9 mmol/L (3.5-5.1)
--- NOTE | 2021-11-19 13:18 | Electrocardiogram Report ---
Test Reason : Blood Pressure : / mmHG Vent. Rate : 163 BPM Atrial Rate : 333 BPM P-R Int : 000 ms QRS Dur : 058 ms QT Int : 226 ms P-R-T Axes : 000 047 241 degrees QTc Int : 372 ms Atrial fibrillation with rapid ventricular response Septal infarct , age undetermined Abnormal ECG When compared with ECG of 15-NOV-2021 00:03, Significant changes have occurred Confirmed by Torsten Ayon ([id number]) on 11/19/2021 1:18:29 PM Referred By: REFERRED SELF Confirmed By:Torsten Ayon
--- NOTE | 2021-11-19 13:19 | Electrocardiogram Report ---
Test Reason : Blood Pressure : / mmHG Vent. Rate : 073 BPM Atrial Rate : 073 BPM P-R Int : 132 ms QRS Dur : 074 ms QT Int : 354 ms P-R-T Axes : 069 047 060 degrees QTc Int : 389 ms Normal sinus rhythm Normal ECG When compared with ECG of 19-NOV-2021 01:23, (unconfirmed) Significant changes have occurred Confirmed by Torsten Ayon ([id number]) on 11/19/2021 1:19:21 PM Referred By: REFERRED SELF Confirmed By:Torsten Ayon
[2021-11-19] MEDS ORDERED: SODIUM CHLORIDE 1 GM TABLET PO ONE (13:36)
[2021-11-19] MEDS: HYDROcodone/HOMATROPINE SYRUP 5MG/1.5MG 5ML UDP PO PRN (13:49)
[2021-11-20] MEDS: ACETAMINOPHEN 325 MG TAB PO PRN (02:31)
[2021-11-20] MEDS ORDERED: METOPROLOL TARTRATE 1 MG/ML VIAL IV STA ×2 (04:10→05:07)
[2021-11-20] MEDS ORDERED: METOPROLOL TARTRATE 1 MG/ML VIAL IV ONE (04:14)
[2021-11-20] MEDS ORDERED: STAT IV Infusion **Titration per Protocol STA ×2 (05:57→16:23)
[2021-11-20] MEDS ORDERED: dilTIAZem HCL 125 MG in DEXTROSE 5% 100 ML IV SCH (06:00)
[2021-11-20] MEDS: LEVOTHYROXINE SODIUM 25 MCG TABLET PO SCH (06:33)
[2021-11-20] MEDS: BENZONATATE 100 MG CAPSULE PO SCH ×3 (07:17→21:38)
[2021-11-20] MEDS: ASCORBIC ACID 500 MG TAB PO SCH (07:17)
--- NOTE | 2021-11-20 08:12 | Hospitalist Progress Note ---
Date of Service November 20, 2021 Assessment & Plan (1) Tachyarrhythmia: Plan: 85-year-old female with history of hypothyroidism recently started on levothyroxine, SVT noted on event monitor 09/2021, CKD 3 (baseline 1.1, eGFR 45), R breast cancer s/p lumpectomy, BPPV who presented to [facility] for evaluation of persistent cough, subsequently found to have narrow- complex tachyarrhythmia on arrival. Atrial fibrillation with RVR Patient with known history of intermittent SVT, as demonstrated in event monitor 09/2021 and reported symptoms Upon arrival in the ER, patient was found to have ventricular rates in the 160s with normal blood pressure and saturation, but in the setting of active cough. Levothyroxine also started this week but I suspect this is less contributory, the main route cdl driver of her tacycardia is likely the viral URI ECG on admission revealing of what appears to be narrow complex tachyarrhythmia with intermittent P waves, possibly consistent with multifocal atrial tachycardia in the setting of acute pulmonary disease - Was in sinus rhythm + rate controlled on 11/19 s/p diltiazem + digoxin in ER - Echo 11/19- EF 60-65%, mild-moderate tricuspid regurgitation, no wall motion abnormality - Reverted to AF w/ RVR on 11/20, currently on diltiazem drip with rate of 5 and rate control improving HR 110s-120s, BP stable - Repeat EKG demonstrating AF w/ ventricular rate 100s Continue metoprolol tartrate 12.5 mg BID (initiated this admission) Maintain K over 4, Mg over 2, replete as needed - CHADSVASC score of 3- after discussion with pt, began anticoagulation with Eliquis 2.5 mg BID (age > 80 + < 60 kg) - Cardiology consulted, awaiting recommendations - (2) Viral URI with cough: Plan: In the setting of positive rhinovirus/enterovirus detected on [employer] PCR in 11/15/2021 COVID-negative x2 - CBC less concerning for bacterial illness, CXR does not suggest pneumonia CTA Chest- no evidence of PE, +left lower lobe bronchial wall thickening + mucus plugging - Treating supportively with antitussives/decongestants- scheduled Tessalon and Mucinex, albuterol PRN - Currently 4L NC, O2 > 94%, wean as able - Repeat CXR for worsening oxygenation/symptoms (3) Hyponatremia: Plan: Patient with intermittent history of hyponatremia, documented back to 2018 Admission sodium 132 (up from 127 on 11/15) to 131, asymptomatic - Serum osmolality 280, urine sodium 38 Possibly related to SIADH in the setting of acute pulmonary infection - Began fluid restriction 1500ccs - Daily BMP (4) Hypothyroidism: Plan: TSH on 11/03 at 5.67; started on levothyroxine 25 mcg this week TSH on arrival at 0.981, do not suspect her levothyroxine is contributory to her tachycardia Continue levothyroxine (5) CKD (chronic kidney disease) stage 3, GFR 30-59 ml/min: Plan: 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 Follows with Dr. 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 Mcfarland. Agree with history, exam findings, assessment and plan of care as outlined. In brief, Ms. Polk is an 85 year old female with history of SVT, newly diagnosed hypothyroid, CKD Stage 3, and right breast cancer s/p lumpectomy admitted with cough and tachyarrhythmia. Overnight, went into afib with RVR. Started on diltiazem gtt. Slight increas in her O2 requirement to 4L. Reports that she continues to cough. Did have a fever overnight and around lunchtime today, saturating 92% on 4L of O2. VS and nursing notes reviewed. Heart with irregular rhythm. No murmur. Lungs with good air movement throughout. Coarse breath sounds throughout Labs and imaging reviewed. 1. tachyarrhythmia. hx of intermittent SVT. EKG on admission showed multifocal atrial tachycardia. Now in afib, confirmed on EKG. TTE without regional wall motion abnormality, EF 60-65%, mild concentric LVH, mild to moderate tricuspid regurg. Increased metoprolol to 25mg BID (started on admission), given a dose of dig today and will start to wean off cardizem gtt. Continue CCM. 2. Viral URI. Positive for entero/rhinovirus on 11/15. COVID negative on admission. CXR without consolidation. CT Chest did show left lower lobe bronchial wall thickening with mucus plugging. Continue with tessalon and mucinex scheduled, hycodan PRN, levalbuterol PRN. 3. Hyponatremia. Admission Na 132. Likely secondary to acute process going on. Repeat BMP later this afternoon. 4. New fever with hypoxia. was positive for enterovirus/rhinovirus 5 days ago so would not expect that she would continue to be febrile at this point. Check CXR for developing bacterial pneumonia. 5. elevated AST/ALT--increased from yesterday and now AlkP elevation. R-factor 2.4. RUQ ultrasound ordered, Lyme and anaplasmosis ordered. Will continue to trend. 6. hypothyroid. New diagnosis and started levothyroxine 25mcg earlier this week. Continue. 7. CKD Stage 3. at baseline Cr of 1.1. 8. Breast cancer, right breast s/p lumpectomy. No chemo. Follows with Jossie Palma at [facility]. Other chronic issues stable and home meds continued. Dispo: pending clinical improvement. Subjective Pt had sinus tachycardia to 140s-160s overnight and converted to atrial fibrillation around 2:30 AM with HRs 140s-170s. Was asymptomatic and normotensive throughout. Received 2x metoprolol doses without noted improvement and later started on diltiazem drip which improved HRs to 110s-120s later in morning. On evaluation, pt was sleepy and tired. Denied pain or dyspnea, did not have acute complaints. Stated she originally did not want to be on anticoagulation if it's lifelong. After discussion about need for anticoagulation in atrial fibrillation with her current risk factors and CHADSVASC score, pt was agreeable to starting anticoagulation. Review of Systems Review of Systems: Per subjective Physical Exam Physical Exam: General: 85-year old female who appears tired but no acute distress. HEENT: NCAT, moist mucous membranes, nasal cannula in place Cardiac: Irregular rate and rhythm; S1 and S2 present with no murmurs, rubs, or gallops. Pulmonary: Frequent cough noted. Symmetric expansion of the chest. No use of accessory muscles. Coarse breath sounds without overt wheezes or crackles Results & Data Results & Data ([facility]) Vital Signs (Past 12 Hours) Vital Signs Temp Pulse Pulse Resp BP BP Pulse Ox 11/20/21 07:41 36.8 C 128 H 20 102/71 97 11/20/21 07:29 126 H 11/20/21 05:54 159 H 106/71 11/20/21 05:26 155 H 118/73 11/20/21 05:19 162 H 122/74 11/20/21 04:03 37.5 C 164 H 19 121/72 94 11/20/21 02:30 38.3 C H 156 H 20 120/66 96 11/19/21 23:57 65 11/19/21 23:55 36.8 C 68 18 129/68 97 11/19/21 20:25 37.3 C 71 19 126/77 96 Resident Activity Tracking Resident Involvement: Resident Care Provided Care Provided: Adult Hospital Medicine
[2021-11-20 08:43] LABS: Hematocrit (blood only) 41.7 % (37-47); Mean Corpuscular Hemoglobin 30.3 pg (25-34); Mean Corpuscular Hgb Conc 33.6 g/dL (32-36); Mean Corpuscular Volume 90.3 fL (80-100); Mean Platelet Volume 11.4 fL (7.4-10.4); Nucleated RBC # (auto) 0.02 K/uL (0-0); Nucleated RBC % (auto) 0.2 %; Platelet Count 189 K/uL (130-400); RDW Coefficient of Variation 13.7 % (11.5-14.5); RDW Standard Deviation 45.4 fL (36.4-46.3); Red Blood Count 4.62 M/uL (4.2-5.4)
[2021-11-20] MEDS ORDERED: DIGOXIN 250 MCG in SYRINGE 9 ML IV ONE (09:45)
[2021-11-20] MEDS: guaiFENesin 600 MG TABCR PO SCH ×2 (10:49→21:35)
[2021-11-20 11:16] LABS: Albumin Globulin Ratio 1.3 (0.9-2); Albumin Level 3.3 gm/dl (3.4-5.0); BUN Creatinine Ratio 17.1 (10-20); Bilirubin,Total 0.8 mg/dl (0.2-1.0); Calcium 8.5 mg/dl (8.5-10.1); Creatinine Clr Calc Pharmacy 28.3 ml/min; Est GFR (African American) 49.6 ml/min; Est GFR (Non-African American) 42.8 ml/min; Globulin 2.5 gm/dl (2.5-4.0); Potassium 4.3 mmol/L (3.5-5.1); Total Protein 5.8 gm/dl (6.0-8.3)
--- NOTE | 2021-11-20 13:58 | Cardiology Consultation ---
Date of Consultation November 20, 2021 Assessment & Plan (1) PAF (paroxysmal atrial fibrillation): -ventricular response improving on intravenous diltiazem. -agree with metoprolol tartrate. -may be able to discontinue IV diltiazem with a higher metoprolol dose -agree with adjusted dose apixaban. -echocardiogram notes normal left ventricular systolic function. History of Present Illness Attending Physician: Kurt Park DO History of Present Illness Mrs. Polk is an 85 year year old female admitted yesterday with a cough and new onset atrial fibrillation. This consultation was ordered to assist in her cardiac management. The patient was in her usual state of health until several weeks prior to presentation. She has been complaining of a persistent nonproductive cough. She was evaluated in the emergency room on November 14. She returned on the day of admission with the same complaints, however, she is now noted to be in atrial fi brillation with a rapid ventricular response. She was given a dose of intravenous digoxin and converted to sinus rhythm. The patient has never known of atrial fibrillation previously. She did wear an event monitor from October 04 through the which noted sinus rhythm and 1 brief episode of his supraventricular tachycardia numbering 11 beats in length. The patient reverted to atrial fibrillation at approximately 2:30 a.m. this morning. Her rate is now adequately controlled and she is asymptomatic. Past medical and surgical history 1. Paroxysmal SVT 2. Hypothyroidism 3. Chronic renal failure 4. DJD 5. Right breast carcinoma 6. Status post right breast lumpectomy 7. Ligation 8. Intra-ocular lens implant 9. Nephrectomy (congenital ureteral insertion) 10. Tonsillectomy Social history No tobacco Social alcohol Family history Noncontributory Review systems A 10 review systems was undertaken and negative except that described above. Allergies Allergy/AdvReac Type Severity Reaction Status Date / Time tetracycline Allergy Mild RASH? Verified 11/19/21 02:53 tamoxifen AdvReac Severe Diarrhea Verified 11/19/21 05:39 Home Medications Medication Instructions Recorded Confirmed Type ascorbic acid (vitamin C) 500 mg 500 mg PO QAM 09/10/20 11/19/21 History tablet (Vitamin C) cholecalciferol (vitamin D3) 25 25 mcg PO 3XWK 09/10/20 11/19/21 History mcg (1,000 unit) capsule (Vitamin D3) vitamin E 400 unit capsule 400 unit PO 3XWK 09/10/20 11/19/21 History copper 2 mg tablet 1 mg PO DAILY tab 11/08/20 11/19/21 History vitamin A palmitate 1 tab PO DAILY 11/08/20 11/19/21 History levothyroxine 25 mcg tablet 25 mcg PO DAILY #90 tab 11/03/21 11/19/21 Rx magnesium citrate 100 mg capsule 100 mg PO DAILY PRN 11/15/21 11/19/21 History zinc gluconate 30 mg tablet 30 mg PO DAILY 11/15/21 11/19/21 History Patient History Medical History (Updated 11/20/21 @ 14:00 by Torsten Ayon MD) Abnormal finding on mammography Asymptomatic menopausal state Cataract CKD (chronic kidney disease) stage 3, GFR 30-59 ml/min Dizziness "recurrent viral infection undiagnosed, only every few years" Elevated blood pressure reading without diagnosis of hypertension History of breast cancer Right side, "WLE", stage 1 cancer, declined chemo/radiation, monitored with mamogram and cbc Leg pain, left hx calf, tx therapy, healed "in 3 years" Osteoarthritis Surgical History History of bilateral tubal ligation History of cataract surgery History of lumpectomy of right breast History of nephrectomy History of tonsillectomy Social History Smoking Status: Never smoker Second Hand Exposure: No; Hx Alcohol Use: Yes Alcohol type: wine Hx Substance Use: No Preferred Language: Ivorian Communication Ability: Effective Digital Specialist Required: No Beliefs That Will Affect Care: None Current Living Situation: Alone Other Information That Helps Us Care for You: No Feels Safe at Home: Yes Safety Concerns: Feels Safe At This Time Assistive Devices: Glasses Physical Exam Physical Exam: In general is well-developed well-nourished white female no acute distress. HEENT exam is negative. Neck is supple with full carotid upstrokes. No carotid bruits. Jugular is pressure is flat at 90. There is no thyromegaly. Cardiovascular exam reveals irregular irregular rhythm with distant heart sounds. No obvious murmurs. Lungs are clear without rales, rhonchi or wheezes. Abdomen is soft without bruits. Extremities reveal intact radial artery pulses bilaterally. There is no peripheral edema. Results & Data ([facility]) Vital Signs (Past 12 Hours) Vital Signs Temp Pulse Pulse Resp BP BP Pulse Ox 11/20/21 11:40 38.4 C H 89 22 109/70 92 11/20/21 07:41 36.8 C 128 H 20 102/71 97 11/20/21 07:29 126 H 11/20/21 05:54 159 H 106/71 11/20/21 05:26 155 H 118/73 11/20/21 05:19 162 H 122/74 11/20/21 04:03 37.5 C 164 H 19 121/72 94 11/20/21 02:30 38.3 C H 156 H 20 120/66 96 Laboratory Results CBC notes hemoglobin of 14.0, hematocrit 41.7, white count 7.1, and platelet count [id number]. Electrolytes note a sodium of 131, potassium 4.9, chloride 99, bicarb 29, BUN 21, creatinine 1.1, and glucose of 128. Magnesium level is normal 1.8. High sensitive troponin is 17.9 with a follow-up value of 16.4. TSH is mildly elevated 5.67. Diagnostic Findings Initial EKG noted atrial fibrillation with a rapid ventricular response. Follow-up tracing noted sinus rhythm with short ME interval. Echocardiogram notes normal left ventricular systolic function with ejection fraction of 60- 65%. There was mild LVH along with mild mitral and [id number] tricuspid regurgitation. Chest x-ray shows no acute disease. CT scan of the chest showed no pulmonary embolism. PG Care Time/CCT Total # of Minutes Spent Total Time Spent with Patient: Total time spent is greater than 50% in coordination of care (as documented) at patient's floor/unit and/or counseling patient: Coding Level of Care Code 13166 Initial Inpt Care Lvl 3 Diagnoses PAF (paroxysmal atrial fibrillation) I48.0
--- NOTE | 2021-11-20 15:09 | Electrocardiogram Report ---
Test Reason : Blood Pressure : / mmHG Vent. Rate : 108 BPM Atrial Rate : 133 BPM P-R Int : 000 ms QRS Dur : 064 ms QT Int : 260 ms P-R-T Axes : 000 046 049 degrees QTc Int : 348 ms Atrial fibrillation with rapid ventricular response Nonspecific T wave abnormality Abnormal ECG When compared with ECG of 19-NOV-2021 04:01, Atrial fibrillation has replaced Sinus rhythm Nonspecific T wave abnormality now evident in Anterior leads Confirmed by Torsten Ayon ([id number]) on 11/20/2021 3:09:22 PM Referred By: REFERRED SELF Confirmed By:Torsten Ayon
[2021-11-20] MEDS: dilTIAZem HCL 125 MG in DEXTROSE 5% 100 ML IV SCH ×2 (16:36→22:44)
--- NOTE | 2021-11-20 17:58 | XRay Report ---
XR chest 1V portable CLINICAL HISTORY: fever, O2 requirement increasing. COMPARISON STUDY: 11/19/2021 TECHNIQUE: 1 view of the chest FINDINGS: Single frontal view of the chest demonstrates the cardiomediastinal silhouette to be within normal li mits. There is a decreased inspiratory effort with elevation of the hemidiaphragms and crowding of th e bronchovascular markings at the lung bases and centrally. The lungs are clear of alveolar opacities . There is no evidence for pleural effusion. There is no evidence for vascular congestion. There is n o acute osseous pathology. IMPRESSION: 1. There is a decreased inspiratory effort with otherwise no acute chest disease. ACT 112: Negative or not required by law. Electronically signed by: Francisco J Cortez M.D. 11/20/2021 5:56 PM
[2021-11-20] MEDS ORDERED: PIPERACILL/TAZOBAC CONSULT ACTIVE PRN (18:13)
[2021-11-20] MEDS ORDERED: VANCOMYCIN CONSULT ACTIVE PRN (18:13)
[2021-11-20] MEDS ORDERED: PIPERACILLIN/TAZOBACTAM 3.375 GM in DEXTROSE 5% 100 ML IV ONE (19:00)
[2021-11-20] MEDS ORDERED: VANCOMYCIN HCL 1,250 MG in SODIUM CHLORIDE 0.9% 250 ML IV ONE (19:00)
[2021-11-20] MEDS ORDERED: APIXABAN 5 MG TABLET PO SCH (21:00)
[2021-11-20] MEDS: APIXABAN 2.5 MG TAB PO SCH (21:36)
[2021-11-20] MEDS: METOPROLOL TARTRATE 25 MG TAB PO SCH (21:36)
--- NOTE | 2021-11-20 21:48 | Pharmacy Report ---
Pharmacy Vanc AUC Short Note - Date of Service November 20, 2021 - Assessment & Plan Assessment 85 year old F receiving Vancomycin and Zosyn for empiric treatment of fever. * PMHx significant for CKD. * Febrile at 38.4oC today. No leukocytosis. Renal fxn stable. Procal elevated at 3.05 this afternoon. * Repeat blood cultures pending. MRSA nasal swab negative. Plan Vancomycin * AUC/DIONNA is the preferred PK/PD target for vancomycin * AUC guided dosing is effective and associated with decreased risk of nephrotoxicity compared to traditional trough targets * Loading dose of 1250 mg IV x 1 * Maintenance dose of 750 mg IV every 24 hours is predicted to achieve target AUC/DIONNA of 400-600 mg/L.hr and may be associated with an 11% risk of nephrotoxicity * Trough will not be ordered unless therapy is to extend beyond 48 hours Zosyn * 3.375 g IV x 1 followed by 3.375 g IV every 8 hours Pharmacy will continue to follow and will adjust dose/frequency as necessary. Thank you.
[2021-11-21] MEDS: PIPERACILLIN/TAZOBACTAM 3.375 GM in DEXTROSE 5% 100 ML IV SCH ×2 (02:02→11:32)
[2021-11-21] MEDS: LEVOTHYROXINE SODIUM 25 MCG TABLET PO SCH (05:12)
--- NOTE | 2021-11-21 07:24 | Hospitalist Progress Note ---
Date of Service November 21, 2021 Assessment & Plan (1) Tachyarrhythmia: Plan: 85-year-old female with history of hypothyroidism recently started on levothyroxine, SVT noted on event monitor 09/2021, CKD 3 (baseline 1.1, eGFR 45), R breast cancer s/p lumpectomy, BPPV who presented to [facility] for evaluation of persistent cough, subsequently found to have narrow- complex tachyarrhythmia on arrival. Atrial fibrillation with RVR Patient with known history of intermittent SVT, as demonstrated in event monitor 09/2021 and reported symptoms Upon arrival in the ER, patient was found to have ventricular rates in the 160s with normal blood pressure and saturation, but in the setting of active cough. Levothyroxine also started this week but I suspect this is less contributory, the main form setter/driver of her tachycardia is likely the viral URI ECG on admission revealing of what appears to be narrow complex tachyarrhythmia with intermittent P waves, possibly consistent with multifocal atrial tachycardia in the setting of acute pulmonary disease - Was in sinus rhythm + rate controlled on 11/19 s/p diltiazem + digoxin in ER - Echo 11/19- EF 60-65%, mild-moderate tricuspid regurgitation, no wall motion abnormality Maintain K over 4, Mg over 2, replete as needed - CHADSVASC score of 3 - Cardiology consulted, awaiting recommendations * Stopped diltiazem drip * Increased Lopressor to 25 mg p.o. twice daily, per cards recs. * Eliquis 2.5 mg twice daily Viral URI - In the setting of positive rhinovirus/enterovirus detected on [employer] PCR in 11/15/2021 - COVID-negative x2 - CBC less concerning for bacterial illness, CXR does not suggest pneumonia - CTA Chest- no evidence of PE, +left lower lobe bronchial wall thickening + mucus plugging - Treating supportively with antitussives/decongestants- scheduled Tessalon and Mucinex, albuterol PRN - Repeat CXR as needed for worsening oxygenation/symptoms * Currently 4L NC, O2 > 94%, wean as able * Stopped empiric antibiotics. Continue supportive management. 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 Follows with Dr. 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 no further fevers. otherwise feeling about the same 1. tachyarrhythmia. hx of intermittent SVT. EKG on admission showed multifocal atrial tachycardia. now afib, confirmed on EKG. TTE without regional wall motion abnormality, EF 60-65%, mild concentric LVH, mild to moderate tricuspid regurg. Rate controlled, anticoagulated 2. Viral URI. Positive for entero/rhinovirus on 11/15. COVID negative on admission. CXR without consolidation. CT Chest did show left lower lobe bronchial wall thickening with mucus plugging. Continue with tessalon and mucinex scheduled, hycodan PRN, levalbuterol PRN. wean O2 as possible 3. Hyponatremia. Admission Na 132. Likely secondary to acute process going on. follow periodically 4. New fever with hypoxia. no clear bacterial infections noted - hold empiric abx. ?mucous plugging/atelectasis seems most likely - IS and flutter valve 5. elevated AST/ALT--coming down again. RUQ US reassurring. anaplasma DNA pending but with LFTs trending down no further fevers and no specific treatment that would have been directed at anaplasma this is less likely. viral vs zosyn. follow 6. hypothyroid. New diagnosis and started levothyroxine 25mcg earlier this week. Continue. 7. CKD Stage 3. at baseline 8. Breast cancer, right breast s/p lumpectomy. No chemo. Follows with Jossie Palma at [facility]. Other chronic issues stable and home meds continued. Dispo: pending clinical improvement. Subjective Patient is asleep in bed. Upon awakening, she reports discomfort due to cough. Denies fevers or chills, shortness of breath, headache, or chest pain. Review of Systems Review of Systems: All systems reviewed & are unremarkable except as noted in HPI & below Physical Exam Physical Exam: General: Patient is AAO x3 and in no acute distress. HEENT: Non-erythematous oropharynx; no lymphadenopathy; normal dentition. CV: Regular rate and rhythm. Normal S1 and S2. No murmurs gallops or rubs. No pedal edema. Pulmonary: Bibasilar crackles. No wheezes heard. Inhalation on auscultation frequently interrupted by dry cough. Abdomen: Soft, nondistended abdomen. No bruits heard on auscultation. No tenderness to deep palpation. No guarding or rebound. MSK: Full ROM at all joints. Equal 5/5 strength bilaterally. Psych: Alert and oriented x3. Congruent mood and affect. Results & Data Results & Data ([facility]) Vital Signs (Past 12 Hours) Vital Signs Temp Pulse Pulse Resp BP Pulse Ox 11/21/21 05:11 37.0 C 57 L 17 124/76 95 11/21/21 01:47 63 11/20/21 22:46 38 C H 69 16 109/69 94 Resident Activity Tracking Resident Involvement: Resident Care Provided Care Provided: Adult Hospital Medicine
[2021-11-21 07:55] LABS: Basophils # (auto) 0.01 K/uL (0-0.2); Basophils % (auto) 0.1 %; Eosinophils # (auto) 0.02 K/uL (0-0.5); Eosinophils % (auto) 0.3 %; Hematocrit (blood only) 36.8 % (37-47); Hemoglobin 12.5 g/dL (12.0-16.0); Immature Granulocytes # (auto) 0.12 K/uL (0.00-0.02); Immature Granulocytes % (auto) 1.7 %; Lymphocytes # (auto) 1.03 K/uL (1.2-3.4); Lymphocytes % (auto) 14.5 %; Mean Corpuscular Hemoglobin 30.6 pg (25-34); Mean Platelet Volume 10.8 fL (7.4-10.4); Monocytes # (auto) 0.72 K/uL (0.11-0.59); Monocytes % (auto) 10.2 %; Neutrophils # (auto) 5.18 K/uL (1.4-6.5); Neutrophils % (auto) 73.2 %; Platelet Count 149 K/uL (130-400); RDW Coefficient of Variation 13.7 % (11.5-14.5); RDW Standard Deviation 45.4 fL (36.4-46.3); Red Blood Count 4.09 M/uL (4.2-5.4); White Blood Count 7.08 K/uL (4.8-10.8)
[2021-11-21 08:22] LABS: Albumin Globulin Ratio 1.2 (0.9-2); Albumin Level 3.2 gm/dl (3.4-5.0); BUN Creatinine Ratio 16.2 (10-20); Bilirubin,Total 0.9 mg/dl (0.2-1.0); Calcium 8.7 mg/dl (8.5-10.1); Est GFR (African American) 56.1 ml/min; Est GFR (Non-African American) 48.4 ml/min; Globulin 2.7 gm/dl (2.5-4.0); Potassium 4.1 mmol/L (3.5-5.1); Total Protein 5.9 gm/dl (6.0-8.3)
[2021-11-21 08:56] LABS: Lyme Ab IgG w/WB Rflx Negative (Negative); Lyme Ab IgM w/WB Rflx Negative (Negative)
--- NOTE | 2021-11-21 09:01 | Ultrasound Report ---
US abdomen limited CLINICAL HISTORY: elevated liver chemistries TECHNIQUE: Multiple real-time sonographic images of the right upper quadrant were obtained. Comparison: None available at the time of this dictation. FINDINGS: The liver is diffusely homogenous with normal contour and echogenicity. No focal mass lesions are se en. No intrahepatic ductal dilatation is seen. No gallstones or sludge are identified within the gallbladder. The gallbladder wall is not thickened. There is no pericholecystic fluid present. The co mmon duct measures 0.34 cm in diameter at the level of the hepatic artery. The visualized portions o f the pancreas appear normal. The right kidney shows normal echogenicity, cortical thickness and renal contour. The right kidney sh ows no evidence of hydronephrosis or mass. No ascites or free fluid is seen in Chase's pouch. IMPRESSION: Unremarkable right upper quadrant ultrasound. ACT 112: Negative or not required by law. Electronically signed by: Davian Maciel M.D. 11/21/2021 9:00 AM
[2021-11-21] MEDS: ASCORBIC ACID 500 MG TAB PO SCH (09:10)
[2021-11-21] MEDS: APIXABAN 2.5 MG TAB PO SCH ×2 (09:10→19:51)
[2021-11-21] MEDS: BENZONATATE 100 MG CAPSULE PO SCH ×3 (09:11→19:51)
[2021-11-21] MEDS: TOCOPHERYL, DL-ALPHA 400 UNITS 180 MG CAP PO SCH (09:11)
[2021-11-21] MEDS: guaiFENesin 600 MG TABCR PO SCH ×2 (09:11→19:51)
[2021-11-21] MEDS: CHOLECALCIFEROL 1,000 UNITS 25 MCG TAB PO SCH (09:11)
[2021-11-21] MEDS ORDERED: COUGH DROP (SUGAR FREE) LOZ 24 LOZ/1 BOX BUCCAL ONE (10:57)
[2021-11-21] MEDS: METOPROLOL TARTRATE 25 MG TAB PO SCH ×2 (11:16→19:51)
--- NOTE | 2021-11-21 15:20 | Electrocardiogram Report ---
Test Reason : Blood Pressure : / mmHG Vent. Rate : 060 BPM Atrial Rate : 060 BPM P-R Int : 146 ms QRS Dur : 066 ms QT Int : 362 ms P-R-T Axes : 053 029 045 degrees QTc Int : 362 ms Normal sinus rhythm Nonspecific T wave abnormality Abnormal ECG When compared with ECG of 20-NOV-2021 10:07, Sinus rhythm has replaced Atrial fibrillation Vent. rate has decreased BY 48 BPM Confirmed by Torsten Ayon ([id number]) on 11/21/2021 3:20:26 PM Referred By: REFERRED SELF Confirmed By:Torsten Ayon
[2021-11-21] MEDS: HYDROcodone/HOMATROPINE SYRUP 5MG/1.5MG 5ML UDP PO PRN (15:26)
[2021-11-21] MEDS: ACETAMINOPHEN 325 MG TAB PO PRN (15:29)
--- NOTE | 2021-11-21 18:11 | Billing Data ---
Date of Service November 21, 2021 Coding Level of Care Code 29181 Subseq Hosp Care Lvl 2
[2021-11-21] MEDS ORDERED: VANCOMYCIN HCL 750 MG in SODIUM CHLORIDE 0.9% 250 ML IV SCH (20:00)
[2021-11-22] MEDS: ACETAMINOPHEN 325 MG TAB PO PRN ×2 (00:08→13:15)
[2021-11-22] MEDS: LEVOTHYROXINE SODIUM 25 MCG TABLET PO SCH (05:36)
--- NOTE | 2021-11-22 07:03 | Hospitalist Progress Note ---
Date of Service November 22, 2021 Assessment & Plan (1) Tachyarrhythmia: Plan: 85-year-old female with history of hypothyroidism recently started on levothyroxine, SVT noted on event monitor 09/2021, CKD 3 (baseline 1.1, eGFR 45), R breast cancer s/p lumpectomy, BPPV who presented to [facility] for evaluation of persistent cough, subsequently found to have narrow- complex tachyarrhythmia on arrival. Atrial fibrillation with RVR Patient with known history of intermittent SVT, as demonstrated in event monitor 09/2021 and reported symptoms Upon arrival in the ER, patient was found to have ventricular rates in the 160s with normal blood pressure and saturation, but in the setting of active cough. Levothyroxine also started this week but I suspect this is less contributory, the main jitney driver of her tachycardia is likely the viral URI ECG on admission revealing of what appears to be narrow complex tachyarrhythmia with intermittent P waves, possibly consistent with multifocal atrial tachycardia in the setting of acute pulmonary disease - Was in sinus rhythm + rate controlled on 11/19 s/p diltiazem + digoxin in ER - Echo 11/19- EF 60-65%, mild-moderate tricuspid regurgitation, no wall motion abnormality Maintain K over 4, Mg over 2, replete as needed - CHADSVASC score of 3 - Cardiology consulted, awaiting recommendations * Converted to Toprol ER 50 mg once daily. Monitor BP today. * Eliquis 2.5 mg twice daily Viral URI - In the setting of positive rhinovirus/enterovirus detected on [employer] PCR in 11/15/2021 - COVID-negative x2 - CBC less concerning for bacterial illness, CXR does not suggest pneumonia - CTA Chest- no evidence of PE, +left lower lobe bronchial wall thickening + mucus plugging - Treating supportively with antitussives/decongestants- scheduled Tessalon and Mucinex, albuterol PRN - Repeat CXR as needed for worsening oxygenation/symptoms * Currently down from 4L NC to 2L, O2 sat 94%. Continue to wean as able * Continue supportive management. 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 Follows with Dr. 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, status postlumpectomy, was unable to tolerate tamoxifen Code: Full Diet: HH Dispo: PCU PPX: SCDs (2) Viral URI with cough: (3) Hyponatremia: (4) Hypothyroidism: (5) CKD (chronic kidney disease) stage 3, GFR 30-59 ml/min: (6) Breast cancer, right: Admission and Anticipated Discharge Date Admission Date: November 20, 2021 Supervising Physician Co-Signing Physician Notes I personally examined the patient and verified all whitman points of history and exam, discussed case, and agree with decision making with Dr Best sleeping comfortably vitals noted nad breathing unlabore no accessory muscles good effort on ~2L NC O2 no focal neuro deficits at rest 1. tachyarrhythmia. hx of intermittent SVT. EKG on admission showed multifocal atrial tachycardia. now afib, confirmed on EKG. TTE without regional wall motion abnormality, EF 60-65%, mild concentric LVH, mild to moderate tricuspid regurg. Rate controlled, anticoagulated 2. Viral URI. Positive for entero/rhinovirus on 11/15. COVID negative on admission. CXR without consolidation. CT Chest did show left lower lobe bronchial wall thickening with mucus plugging. Continue with tessalon and mucinex scheduled, hycodan PRN, levalbuterol PRN. continue to wean O2 3. Hyponatremia. Admission Na 132. Likely secondary to acute process going on. follow periodically 4. New fever with hypoxia. no clear bacterial infections noted - holding empiric abx - no worsneing noted. ?mucous plugging/atelectasis seems most likely - IS and flutter valve 5. elevated AST/ALT--coming down again. RUQ US reassurring. anaplasma DNA pending but with LFTs trending down no further fevers and no specific treatment that would have been directed at anaplasma this is less likely. viral vs zosyn. follow 6. hypothyroid. New diagnosis and started levothyroxine 25mcg recently. Continue. 7. CKD Stage 3. at baseline 8. Breast cancer, right breast s/p lumpectomy. No chemo. Follows with Jossie Palma at [facility]. Other chronic issues stable and home meds continued. Dispo: pending clinical improvement. Subjective Patient is asleep in bed this morning. Upon being awakened, she reports chest discomfort and a mild from mostly dry cough. Denies fevers, chills, SOB, or dyspnea on exertion. Review of Systems Review of Systems: All systems reviewed & are unremarkable except as noted in HPI & below Physical Exam Physical Exam: General: Patient is AAO x3 and in no acute distress. HEENT: Non-erythematous oropharynx; no lymphadenopathy; normal dentition. CV: Regular rate and rhythm. Normal S1 and S2. No murmurs gallops or rubs. No pedal edema. Pulmonary: Bibasilar crackles, improved from yesterday. Bilateral mid-lung crackles. No wheezes. Inhalation on auscultation frequently interrupted by dry cough. Abdomen: Soft, nondistended abdomen. No bruits heard on auscultation. No tenderness to deep palpation. No guarding or rebound. MSK: Full ROM at all joints. Equal 5/5 strength bilaterally. Psych: Alert and oriented x3. Congruent mood and affect. Results & Data Results & Data ([facility]) Vital Signs (Past 12 Hours) Vital Signs Temp Pulse Pulse Resp BP Pulse Ox 11/22/21 03:11 36.8 C 56 L 16 126/78 95 11/22/21 00:08 36.8 C 61 18 130/85 91 11/21/21 23:00 64 11/21/21 19:34 36.7 C 54 L 16 113/69 98 Resident Activity Tracking Resident Involvement: Resident Care Provided Care Provided: Adult Hospital Medicine
[2021-11-22] MEDS: APIXABAN 2.5 MG TAB PO SCH ×2 (09:12→21:30)
[2021-11-22] MEDS: guaiFENesin 600 MG TABCR PO SCH ×2 (09:12→21:30)
[2021-11-22] MEDS: ASCORBIC ACID 500 MG TAB PO SCH (09:12)
[2021-11-22] MEDS: BENZONATATE 100 MG CAPSULE PO SCH ×3 (09:12→21:30)
[2021-11-22 10:36] LABS: BUN Creatinine Ratio 18.6 (10-20); Calcium 8.4 mg/dl (8.5-10.1); Creatinine Clr Calc Pharmacy 33.5 ml/min; Est GFR (African American) 61.7 ml/min; Est GFR (Non-African American) 53.3 ml/min; Potassium 3.9 mmol/L (3.5-5.1)
[2021-11-22] MEDS: METOPROLOL SUCC 50MG EXT REL TAB PO SCH (11:11)
--- NOTE | 2021-11-22 12:53 | Cardiology Progress Note ---
Date of Service November 22, 2021 Assessment & Plan (1) PAF (paroxysmal atrial fibrillation): Plan: -converted to sinus rhythm yesterday. -agree with metoprolol succinate 50 mg daily. -agree with adjusted dose apixaban. -echocardiogram notes normal left ventricular systolic function. Admission and Anticipated Discharge Date Admission Date: November 20, 2021 Subjective The patient is resting comfortably in bed without complaints chest pain, dyspnea, or palpitations. Physical Exam Physical Exam: In general is well-developed well-nourished white female no acute distress. HEENT exam is negative. Neck is supple with full carotid upstrokes. No carotid bruits. Jugular is pressure is flat at 90. There is no thyromegaly. Cardiovascular exam reveals a regular rhythm with distant heart sounds. No obvious murmurs. Lungs are clear without rales, rhonchi or wheezes. Abdomen is soft without bruits. Extremities reveal intact radial artery pulses bilaterally. There is no peripheral edema. Results & Data ([facility]) Vital Signs (Past 12 Hours) Vital Signs Temp Pulse Resp BP Pulse Ox 11/22/21 11:33 37.2 C 70 18 125/67 94 11/22/21 11:10 113/65 11/22/21 08:06 36.8 C 55 L 19 122/74 94 11/22/21 03:11 36.8 C 56 L 16 126/78 95 Diagnostic Findings night monitor notes normal sinus rhythm. No recurrent atrial fibrillation. PG Care Time/CCT Total # of Minutes Spent Total Time Spent with Patient: Total time spent is greater than 50% in coordination of care (as documented) at patient's floor/unit and/or counseling patient: Coding Level of Care Code 69673 Subseq Hosp Care Lvl 3 Diagnoses PAF (paroxysmal atrial fibrillation) I48.0
--- NOTE | 2021-11-22 14:54 | Electrocardiogram Report ---
Test Reason : Blood Pressure : / mmHG Vent. Rate : 060 BPM Atrial Rate : 060 BPM P-R Int : 148 ms QRS Dur : 064 ms QT Int : 380 ms P-R-T Axes : 060 034 046 degrees QTc Int : 380 ms Normal sinus rhythm Normal ECG When compared with ECG of 21-NOV-2021 08:06, Nonspecific T wave abnormality, improved in Inferior leads Nonspecific T wave abnormality no longer evident in Anterolateral leads Confirmed by Torsten Ayon ([id number]) on 11/22/2021 2:53:33 PM Referred By: REFERRED SELF Confirmed By:Torsten Ayon
--- NOTE | 2021-11-22 15:39 | Billing Data ---
Date of Service November 22, 2021 Coding Level of Care Code 12345 Subseq Hosp Care Lvl 1
[2021-11-23] MEDS: LEVOTHYROXINE SODIUM 25 MCG TABLET PO SCH (05:44)
[2021-11-23 06:11] LABS: Basophils # (auto) 0.03 K/uL (0-0.2); Basophils % (auto) 0.3 %; Eosinophils # (auto) 0.18 K/uL (0-0.5); Hematocrit (blood only) 36.6 % (37-47); Hemoglobin 12.2 g/dL (12.0-16.0); Immature Granulocytes # (auto) 0.31 K/uL (0.00-0.02); Immature Granulocytes % (auto) 3.4 %; Lymphocytes # (auto) 1.39 K/uL (1.2-3.4); Lymphocytes % (auto) 15.4 %; Mean Corpuscular Hemoglobin 30.3 pg (25-34); Mean Corpuscular Hgb Conc 33.3 g/dL (32-36); Mean Platelet Volume 10.4 fL (7.4-10.4); Monocytes # (auto) 0.62 K/uL (0.11-0.59); Monocytes % (auto) 6.9 %; Neutrophils # (auto) 6.52 K/uL (1.4-6.5); Platelet Count 148 K/uL (130-400); RDW Coefficient of Variation 13.7 % (11.5-14.5); RDW Standard Deviation 45.5 fL (36.4-46.3); Red Blood Count 4.02 M/uL (4.2-5.4); White Blood Count 9.05 K/uL (4.8-10.8)
[2021-11-23 06:45] LABS: Albumin Globulin Ratio 1.2 (0.9-2); BUN Creatinine Ratio 15.8 (10-20); Bilirubin,Total 0.4 mg/dl (0.2-1.0); Calcium 8.2 mg/dl (8.5-10.1); Creatinine Clr Calc Pharmacy 34.2 ml/min; Est GFR (African American) 63.3 ml/min; Est GFR (Non-African American) 54.6 ml/min; Globulin 2.6 gm/dl (2.5-4.0); Potassium 4.4 mmol/L (3.5-5.1); Total Protein 5.6 gm/dl (6.0-8.3)
[2021-11-23] MEDS: guaiFENesin 600 MG TABCR PO SCH (09:03)
[2021-11-23] MEDS: APIXABAN 2.5 MG TAB PO SCH (09:03)
[2021-11-23] MEDS: METOPROLOL SUCC 50MG EXT REL TAB PO SCH (09:03)
[2021-11-23] MEDS: TOCOPHERYL, DL-ALPHA 400 UNITS 180 MG CAP PO SCH (09:04)
[2021-11-23] MEDS: CHOLECALCIFEROL 1,000 UNITS 25 MCG TAB PO SCH (09:04)
[2021-11-23] MEDS: ASCORBIC ACID 500 MG TAB PO SCH (09:04)
[2021-11-23] MEDS: BENZONATATE 100 MG CAPSULE PO SCH ×2 (09:07→14:35)
--- NOTE | 2021-11-23 16:28 | Billing Data ---
Date of Service November 23, 2021 Coding Level of Care Code D/C DAY MANAGEMENT <30 MINS
--- NOTE | 2021-11-23 19:39 | Discharge Summary ---
Date of Service November 23, 2021 Admission HPI Per Admitting Provider 85-year-old female with history of hypothyroidism recently started on levothyroxine, SVT noted on event monitor 09/2021, CKD 3 (baseline 1.1, eGFR 45), R breast cancer s/p lumpectomy, BPPV who presented to [facility] for evaluation of persistent cough. Of note, patient was seen in the ED on 11/15 for cough and mild sore throat, alongside mild shortness of breath; her chest x-ray at that time did not demonstrate any evidence of infiltrative process. She says that over the last week, she has had a persistent cough. It started with a sore throat. She said that over the last 3 days since her ER v isit, she has felt mildly more short of breath with the coughing. She denies any chest pain or pressure. Denies any nausea or vomiting. Endorses a good appetite. Does endorse some chills and subjective fevers at home. She said that over the last 4 to 5 months, she has had several episodes of palpitations where she felt her heart "thumping." She denies any pain associated with them. She does tell me that back during a hospital stay many years ago, she had an episode of AFib. Per PCP notes, apparently did have an episode of SVT noted on her event monitor in 09/2021. Medications include vitamin C, vitamin D, copper, levothyroxine 25 mcg daily, magnesium, vitamin A, vitamin E, zinc. In the emergency room, patient was found to have blood pressure 110/70 with supraventricular tachyarrhythmia rate 161, SPO2 92% on room air. Did have desaturation to high 80s which required 2L NC. Labs demonstrate normal white count with relative lymphopenia and monocytosis, sodium 132, potassium 4.3, magnesium 2, mild transaminitis (AST 60/ALT 66), high-sensitivity troponin 18, negative Pro-Amadeo and TSH. [employer] PCR on 11/15 was positive for Entero/Rhinovirus. ECG demonstrated a narrow complex tachyarrhythmia with some intermittent P waves seen throughout, possibly ?MAT. She received 25 mg of IV diltiazem. Following administration of this, her pressures became softer in the low 100s (systolic). She was then loaded with digoxin. Principal Diagnosis Atrial fibrillation secondary to viral upper respiratory infection Discharge Exam General: Patient is AAO x3 and in no acute distress. HEENT: Non-erythematous oropharynx; no lymphadenopathy; normal dentition. CV: Regular rate and rhythm. Normal S1 and S2. No murmurs gallops or rubs. No pedal edema. Pulmonary: Bibasilar crackles, again improved from the day before. No wheezes. Inhalation on auscultation punctuated by dry cough. Abdomen: Soft, nondistended abdomen. No bruits heard on auscultation. No tenderness to deep palpation. No guarding or rebound. MSK: Full ROM at all joints. Equal 5/5 strength bilaterally. Psych: Alert and oriented x3. Congruent mood and affect. Discharge Data Allergies Allergy/AdvReac Type Severity Reaction Status Date / Time tetracycline Allergy Mild RASH? Verified 11/19/21 02:53 tamoxifen AdvReac Severe Diarrhea Verified 11/19/21 05:39 Consultations 11/19/21 03:15 ED Decision to Admit Stat 11/20/21 09:28 Consult Cardiology Routine Ordered Studies 11/19/21 03:18 CT angio chest PE protocol Urgent 11/21/21 US abdomen limited Routine Hospital Course (1) Tachyarrhythmia: 85-year-old female with history of hypothyroidism recently started on levothyroxine, SVT noted on event monitor 09/2021, CKD 3 (baseline 1.1, eGFR 45), R breast cancer s/p lumpectomy, BPPV who presented to [facility] for evaluation of persistent cough, subsequently found to have narrow- complex tachyarrhythmia on arrival. Atrial fibrillation with RVR Patient with known history of intermittent SVT, as demonstrated in event monitor 09/2021 and reported symptoms Upon arrival in the ER, patient was found to have ventricular rates in the 160s with normal blood pressure and saturation, but in the setting of active cough. Levothyroxine also started this week but I suspect this is less contributory, the main special events driver of her tachycardia is likely the viral URI ECG on admission revealing of what appears to be narrow complex tachyarrhythmia with intermittent P waves, possibly consistent with multifocal atrial tachycardia in the setting of acute pulmonary disease - Was in sinus rhythm + rate controlled on 11/19 s/p diltiazem + digoxin in ER - Echo 5/21- EF 60-65%, mild-moderate tricuspid regurgitation, no wall motion abnormality - CHADSVASC score of 3 - Cardiology consulted: * Converted to Toprol ER 50 mg once daily. Patient remained rate controlled for duration of hospital stay. * Eliquis 2.5 mg twice daily Viral URI - In the setting of positive rhinovirus/enterovirus detected on [employer] PCR in 11/15/2021 - COVID-negative x2 - CBC less concerning for bacterial illness, CXR does not suggest pneumonia - CTA Chest- no evidence of PE, +left lower lobe bronchial wall thickening + muc us plugging - Treating supportively with antitussives/decongestants- scheduled Tessalon and Mucinex, albuterol PRN - Repeat CXR as needed for worsening oxygenation/symptoms * Patient weaned down from 4 L nasal cannula to room air. Just prior to discharge patient had oxygen saturation 92% on room air. Hyponatremia Patient with intermittent history of hyponatremia, documented back to 2018 Admission sodium 132 (up from 127 on 11/15) to 131, asymptomatic. Discharge sodium 133, with peak of 135 on 11/22. 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 Follows with Dr. 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, status postlumpectomy, was unable to tolerate tamoxifen Code: Full Diet: HH Dispo: PCU PPX: SCDs (2) Viral URI with cough: (3) Hyponatremia: (4) Hypothyroidism: (5) CKD (chronic kidney disease) stage 3, GFR 30-59 ml/min: (6) Breast cancer, right: Total Time Total Time Spent Total Time Spent (In Minutes): <30 Discharge Plan Discharge Items Patient Disposition: Home - Self-Care Reason For Visit: AFIB RVR, COUGH Discharge Diagnosis: Viral upper respiratory infection Activity: Per Instructions section Non-emergency contact: Primary Care Provider Call non-emergency contact if: you have a fever and your temperature is above 101.5 Follow-up/Referrals: Torsten Ayon MD [Physician] - Blanca Prado MD [Primary Care Provider] - 12/19/21 9:00 am Diet: Regular Addtl Attending Provider Instructions: You were admitted to the hospital for a viral upper respiratory infection and hyponatremia, or low blood sodium. You were treated with supportive therapy while you recovered and we restricted your fluid intake so that your sodium could recover. You were found to have an irregularly irregular heartbeat, also known as atrial fibrillation. We gave you some medicines to lower your heart rate. Once this was achieved, we added them to your medicines. A discharge summary will be sent to your primary care physician to ensure continuity of care. Please bring this discharge summary with you to your next office appointment so that your provider can review it at that time. Follow-up appointments: * Make a follow-up appointment with your PCP within the next week. It is very important that you follow up with them shortly after discharge from the hospital. * Keep all your follow-up appointments as already scheduled. If you cannot make an appointment, notify your provider. Medications: Your medication list has been reviewed and reconciled upon discharge to ensure accuracy and continuity of care. An updated list of all your medications is included with your hospital discharge paperwork. Please review this list closely, and make note of any changes. * We sent a new medication called metoprolol succinate to your pharmacy. Please take Metoprolol Succinate ER 50 mg once daily, unless otherwise instructed by your primary care physician. * We sent a new medication called apixaban, or Eliquis, to your pharmacy. Please take apixaban 2.5 mg twice a day, unless otherwise instructed by your primary care physician. * For your viral infection, you can take [id number]-pfhtqdg medications, such as you have been receiving during your stay here, like: * Mucinex 600 mg every 12 hours as needed for cough. * Benzonatate, or Tessalon Perles 100 mg, 3 times daily, as needed for cough. Take your medications as instructed; do not skip a dose of your medicines. Make sure all of your doctors know every medicine you are taking (including ivgs-vqs-jlvmiqi medicines, vitamins, and supplements). Call your primary care provider before taking any new medicines (including btcv-thk-niphwfw medicines, vitamins, and supplements), because some of these may interact with your current medications, or may make your symptoms worse. Tell your primary care provider if you cannot afford your medications. CONTACT YOUR PRIMARY CARE PROVIDER if you experience any of the following: * Suddenly worsening shortness of breath, fever, or cold symptoms. * Sudden lightheadedness, dizziness or worsening fatigue. * Difficulty following your treatment plan, or difficulty taking medications CALL 911 OR GO TO THE EMERGENCY DEPARTMENT if you experience any of the following: * Sudden, severe abdominal pain or nausea/vomiting * Severe chest pain, or chest pain that radiates (moves) to your jaw or arm * Sudden, severe shortness of breath or difficulty breathing Thank you for allowing us to participate in your care. Pending Studies at Discharge: No Stand-Alone Forms: My [facility], Smoking Cessation Medications and DC Order Prescriptions: New metoprolol succinate 50 mg Tablet Extended Release 24 Hr 50 mg PO QAM 30 Days Qty: 30 RF: 0 Eliquis 2.5 mg Tablet 2.5 mg PO BID 30 Days Qty: 60 RF: 0 Continued vitamin A palmitate 1 tab PO DAILY RF: 0 levothyroxine 25 mcg tablet 25 mcg PO DAILY Qty: 90 RF: 3 ascorbic acid (vitamin C) [Vitamin C] 500 mg Tablet 500 mg PO QAM RF: 0 vitamin E 400 unit Capsule 400 unit PO 3XWK RF: 0 cholecalciferol (vitamin D3) [Vitamin D3] 25 mcg (1,000 unit) Capsule 25 mcg PO 3XWK RF: 0 copper 2 mg tablet 1 mg PO DAILY RF: 0 zinc gluconate 30 mg Tablet 30 mg PO DAILY RF: 0 magnesium citrate 100 mg Capsule 100 mg PO DAILY PRN (Reason: LEG CRAMPS) RF: 0 Discharge Orders: Discharge Order (Routine); Ordered 11/23/21 Ordered By: Barby Mcdaniel/Other Patient Handouts: Understanding the Cold Virus Admission Data Admit Date/Time: 11/20/21 06:38 Attending Provider: Philipp Sánchez Admit Provider: Philipp Aleman Primary Care Provider: Blanca Prado Other Providers: Torsten Ayon ; Alisha Apple Other Interventions: Discharge Summary Assessment (RN) Last Done: 11/23/21 15:39 Supervising Physician Co-Signing Physician Notes I personally examined the patient and verified all whitman points of history and exam, discussed case, and agree with decision making with Dr Best no new issues vitals noted nad breathing unlabore no accessory muscles good effort on RA 1. tachyarrhythmia. hx of intermittent SVT. EKG on admission showed multifocal atrial tachycardia. now afib, confirmed on EKG. TTE without regional wall motion abnormality, EF 60-65%, mild concentric LVH, mild to moderate tricuspid regurg. Rate controlled, anticoagulated 2. Viral URI. Positive for entero/rhinovirus on 11/15. COVID negative on admission. CXR without consolidation. CT Chest did show left lower lobe bronchial wall thickening with mucus plugging. Continue with tessalon and mucinex scheduled, hycodan PRN, levalbuterol PRN. on RA 3. Hyponatremia. Admission Na 132. Likely secondary to acute process going on. follow periodically as outpt 4. New fever with hypoxia. no clear bacterial infections noted - continued to improve off abx. ?mucous plugging/atelectasis seems most likely - IS and flutter valve were beneficial 5. elevated AST/ALT--coming down again. RUQ US reassurring. anaplasma DNA pending but with LFTs trending down no further fevers and no specific treatment that would have been directed at anaplasma this is less likely. viral vs zosyn. follow up labs as outpt periodically 6. hypothyroid. New diagnosis and started levothyroxine 25mcg recently. Continue. 7. CKD Stage 3. at baseline 8. Breast cancer, right breast s/p lumpectomy. No chemo. Follows with Jossie Palma at [facility]. Other chronic issues stable and home meds continued. stable for home Resident Activity Tracking Resident Involvement: Resident Care Provided Care Provided: Adult Hospital Medicine
== END 2021-11-23 17:40 | disposition home or self-care (01) | DRG 309 ==
LOC: 2S 01:11 → ED 01:11 → SUATTDRO 04:01 → 2S 04:31 → SUATTDRO 11-20 06:38 → 3W 11-22 18:40

== ENCOUNTER 2021-12-01 13:06 | Inpatient (IN) ==
--- NOTE | 2021-12-01 13:34 | XRay Report ---
SINGLE VIEW CHEST CLINICAL HISTORY: Cough. Dyspnea FINDINGS: An AP, portable, upright chest radiograph is compared to study dated 11/20/2021 and correlat ed with chest CT dated 11/19/2021. The cardiomediastinal silhouette is unremarkable noting atheroscler otic calcification of the thoracic aorta. There is bibasilar airspace consolidation, left greater rahel n right. No large pleural effusion or pneumothorax is seen. The skeletal structures are osteopenic. T he bony thorax is grossly intact. IMPRESSION: There is bibasilar airspace consolidation, left greater than right. Correlate clinically for evidence of pneumonia/aspiration pneumonitis. Radiographic follow-up to resolution is recommended . ACT 112: Negative or not required by law. Electronically signed by: Juniro Vergara M.D. 12/01/2021 1:33 PM
[2021-12-01] MEDS ORDERED: SODIUM CHLORIDE 0.9% 1000ML 1,000 ML IV STA (13:39)
[2021-12-01] MEDS ORDERED: SODIUM CHLORIDE 0.9% 1000ML 500 ML IV ONE (13:39)
[2021-12-01 14:15] LABS: Basophils # (auto) 0.03 K/uL (0-0.2); Basophils % (auto) 0.2 %; Eosinophils # (auto) 0.02 K/uL (0-0.5); Eosinophils % (auto) 0.2 %; Hematocrit (blood only) 33.1 % (37-47); Hemoglobin 10.9 g/dL (12.0-16.0); Immature Granulocytes # (auto) 0.07 K/uL (0.00-0.02); Immature Granulocytes % (auto) 0.5 %; Lymphocytes # (auto) 0.83 K/uL (1.2-3.4); Lymphocytes % (auto) 6.5 %; Mean Corpuscular Hemoglobin 29.4 pg (25-34); Mean Corpuscular Hgb Conc 32.9 g/dL (32-36); Mean Corpuscular Volume 89.2 fL (80-100); Mean Platelet Volume 10.3 fL (7.4-10.4); Monocytes # (auto) 0.92 K/uL (0.11-0.59); Monocytes % (auto) 7.2 %; Neutrophils # (auto) 10.96 K/uL (1.4-6.5); Neutrophils % (auto) 85.4 %; Platelet Count 360 K/uL (130-400); RDW Coefficient of Variation 13.9 % (11.5-14.5); RDW Standard Deviation 45.8 fL (36.4-46.3); Red Blood Count 3.71 M/uL (4.2-5.4); White Blood Count 12.83 K/uL (4.8-10.8)
[2021-12-01 14:39] LABS: Alanine Aminotransferase 96 U/L (7-52); Albumin Globulin Ratio 0.9 (0.9-2); Alkaline Phosphatase 266 U/L (34-104); Anion Gap 8 (3-11); Aspartate Aminotransferase 165 U/L (13-39); BUN Creatinine Ratio 14.4 (10-20); Bilirubin,Total 0.6 mg/dl (0.2-1.0); Blood Urea Nitrogen 14 mg/dl (6-23); Calcium 8.5 mg/dl (8.5-10.1); Carbon Dioxide 26 mmol/L (21-32); Chloride 93 mmol/L (98-107); Est GFR (African American) 61.7 ml/min; Est GFR (Non-African American) 53.3 ml/min; Globulin 3.5 gm/dl (2.5-4.0); Glucose 89 mg/dl (70-99(Fasting)); Magnesium 1.9 mg/dl (1.7-2.4); Potassium 4.5 mmol/L (3.5-5.1); Sodium 127 mmol/L (136-145); Total Protein 6.5 gm/dl (6.0-8.3); Troponin I High Sensitivity 13.7 pg/ml (0-14)
--- NOTE | 2021-12-01 14:54 | Emergency Department Note ---
Impression & Plan SOB (shortness of breath), Pneumonia, Hypoxia, Acute hypotension ED Provider Note INFORMANT: Patient ED PROVIDER(S): Dominik Rodriguez MD CHIEF COMPLAINT: Shortness of breath PLAN: Disposition: Admitted Condition: Good Outpatient prescription management: none Referral: None MEDICAL DECISION MAKING: Patient presented because of shortness of breath. She was recently evaluated for a tachydysrhythmia as well as upper respiratory infection. Chest x-ray was concerning for pneumonia. She was requiring supplemental oxygen. She did have mildly low blood pressure responded to fluids. Her blood work showed leukocytosis and mild anemia. She was mildly hyponatremic. LFTs were elevated consistent with prior. ECG was nonischemic. Cultures were obtained and the patient was treated with IV cefepime and vancomycin. Further management in the hospital will be necessary. [facility] Patient was admitted for further management. Triage Nursing notes reviewed and agree them. Vital Signs: reviewed and remarkable for no significant abnormalities Differential diagnosis: Reactive airway disease, pneumonia, pneumothorax, COPD, CHF, infections, cardiac ischemia, pulmonary embolism, musculoskeletal, gastrointestinal, as well as other pathologies. Diagnostics interpreted by me: ECG: Twelve-lead ECG reveals normal sinus rhythm at 90 bpm. Left atrial margin. No ST elevation or depression no PACs or PVCs. Normal axis. Cardiac Monitoring: Cardiac monitoring ordered by me: The patient was placed on continuous cardiac monitoring and observed. It revealed a normal sinus rhythm at 70 beats per minute without ectopy or evidence of dysrhythmia. Imaging studies: Chest x-ray concerning for bibasilar pneumonia. CT imaging of the chest is negative for PE. Bilateral infiltrates noted. HPI: The patient is a 86 year old female who presents to the Emergency Room with complaints of shortness of breath. This started over the last several weeks and is worsening. Patient was diagnosed with an upper respiratory infection. This is her third ER visit. She was admitted on the last visit. Family called EMS due to a welfare check as they were concerned about her health. EMS noted the patient was hypoxic. She is also very hard of hearing and feels generally weak. Patient states that hearing issues are new over the last 2 weeks since becoming ill. Patient denies any pain. No relieving factors noted. Pt denies LOC, headache, fevers, chills, diaphoresis, visual changes, neck pain, chest pain, nausea, vomiting, abdominal pain, back pain, melena, hematochezia, urinary symptoms, numbness, focal weakness, lymphadenopathy, rash, or other complaints. ROS: See above HPI for pertinent positives & negatives. A total of 10 systems reviewed and were otherwise negative. PAST MEDICAL HISTORY:See Below , paroxysmal atrial fibrillation PAST SURGICAL HISTORY:See Below, FAMILY HISTORY:See Below SOCIAL HISTORY:See Below, lives alone HOME MEDICATIONS:See Below ALLERGIES:See Below VITALS:See Below PHYSICAL EXAMINATION: GENERAL: Awake, tired-appearing, in no distress HENT: Normocephalic, atraumatic. Oropharynx unremarkable. EYES: Normal conjunctiva. Sclera non-icteric. NECK: Inspection normal. Non-tender. Supple. No nuchal rigidity. FROM. No masses. RESPIRATORY: Scattered rales. No wheezes. Normal respiratory effort. CARDIAC: Normal rate. Normal rhythm. No murmurs. No rubs. Extremities warm and well perfused. Pulses equal. No JVD. GI: Soft, non-distended. No tenderness to palpation. No rebound or guarding. No masses. MUSCULOSKELETAL: Atraumatic. Chest examination reveals no tenderness. The back is symmetrical on inspection without obvious abnormality. There is no CVA tende rness to palpation. No joint edema. LOWER EXTREMITIES: Calves are equal size bilaterally and non-tender. No edema. No discoloration. NEURO: Hard of hearing normal sensorium. No focal sensory or motor deficits noted. SKIN: No rash or jaundice noted. CRITICAL CARE: I have personally spent greater than 35 minutes of critical care time in the direct management of this patient. This includes bedside care, interpretation of diagnostic studies, and testing, discussion with consultants, patient, and other required patient management activities. These minutes are in excess of all separately billable procedures. Dominik Rodriguez MD Past Med/Surg History Medical History (Updated 12/01/21 @ 14:54 by Dominik Rodriguez MD) Abnormal finding on mammography Asymptomatic menopausal state Cataract CKD (chronic kidney disease) stage 3, GFR 30-59 ml/min Dizziness "recurrent viral infection undiagnosed, only every few years" Elevated blood pressure reading without diagnosis of hypertension History of breast cancer Right side, "WLE", stage 1 cancer, declined chemo/radiation, monitored with mamogram and cbc Leg pain, left hx calf, tx therapy, healed "in 3 years" Osteoarthritis Surgical History History of bilateral tubal ligation History of cataract surgery History of lumpectomy of right breast History of nephrectomy History of tonsillectomy Social History Smoking Status: Never smoker Second Hand Exposure: No; Hx Alcohol Use: Yes Alcohol type: wine Hx Substance Use: No Preferred Language: [place] Communication Ability: Effective Paper Supervisor Required: No Beliefs That Will Affect Care: None Current Living Situation: Alone Feels Safe at Home: Yes Assistive Devices: None Allergies Allergies Allergy/AdvReac Type Severity Reaction Status Date / Time tetracycline Allergy Mild RASH? Verified 12/01/21 16:52 tamoxifen AdvReac Severe Diarrhea Verified 12/01/21 16:52 Home Meds Home Medications Medication Instructions Recorded Confirmed ascorbic acid (vitamin C) 500 mg 500 mg PO QAM 09/10/20 12/01/21 tablet (Vitamin C) cholecalciferol (vitamin D3) 25 25 mcg PO 3XWK 09/10/20 12/01/21 mcg (1,000 unit) capsule (Vitamin D3) vitamin E 400 unit capsule 400 unit PO 3XWK 09/10/20 12/01/21 magnesium citrate 100 mg capsule 100 mg PO DAILY PRN 11/15/21 12/01/21 zinc gluconate 30 mg tablet 30 mg PO DAILY 11/15/21 12/01/21 vitamin A palmitate 10,000 unit 10,000 unit PO DAILY 12/01/21 12/01/21 tablet Previous Rx's Medication Instructions Recorded levothyroxine 25 mcg tablet 25 mcg PO DAILY #90 tab 11/03/21 apixaban 2.5 mg tablet (Eliquis) 2.5 mg PO BID 30 Days #60 tab 11/23/21 metoprolol succinate 50 mg 50 mg PO QAM 30 Days #30 tab 11/23/21 tablet,extended release 24 hr Results & Data (ED) Vital Signs Vital Signs - 24 hr 12/01/21 13:15 12/01/21 13:52 12/01/21 13:57 Pulse Rate 81 77 Pulse Rate [Apical] Pulse Rate from SpO2 Sensor 76 Pulse Rhythm Regular Pulse Rhythm [Apical] Pulse Strength Normal Pulse Strength [Apical] Respiratory Rate 19 24 Respiratory Effort / Characteristics Respiratory Depth Normal Respiratory Pattern Blood Pressure 90/73 L Blood Pressure [Right Arm] Blood Pressure Mean 78 Blood Pressure Mean [Right Arm] Blood Pressure Position Sitting Blood Pressure Position [Right Arm] Pulse Oximetry 86 L 96 97 Oxygen Delivery Method Room Air Nasal Cannula Oxygen Flow Rate 3 Sepsis Recent Fever Within 48 Hours No Sepsis New/Unexplained Change in Mental Status No Sepsis Action Taken by Nursing No Action Required 12/01/21 14:00 12/01/21 14:10 12/01/21 14:20 Pulse Rate 76 74 70 Pulse Rate [Apical] Pulse Rate from SpO2 Sensor 77 74 70 Pulse Rhythm Pulse Rhythm [Apical] Pulse Strength Pulse Strength [Apical] Respiratory Rate 18 18 21 Respiratory Effort / Characteristics Respiratory Depth Respiratory Pattern Blood Pressure 120/60 Blood Pressure [Right Arm] Blood Pressure Mean 80 Blood Pressure Mean [Right Arm] Blood Pressure Position Blood Pressure Position [Right Arm] Pulse Oximetry 96 98 96 Oxygen Delivery Method Oxygen Flow Rate Sepsis Recent Fever Within 48 Hours Sepsis New/Unexplained Change in Mental Status Sepsis Action Taken by Nursing 12/01/21 14:30 12/01/21 14:40 12/01/21 14:50 Pulse Rate 72 69 72 Pulse Rate [Apical] Pulse Rate from SpO2 Sensor 72 69 72 Pulse Rhythm Pulse Rhythm [Apical] Pulse Strength Pulse Strength [Apical] Respiratory Rate 26 H 24 24 Respiratory Effort / Characteristics Respiratory Depth Respiratory Pattern Blood Pressure Blood Pressure [Right Arm] Blood Pressure Mean Blood Pressure Mean [Right Arm] Blood Pressure Position Blood Pressure Position [Right Arm] Pulse Oximetry 97 95 95 Oxygen Delivery Method Oxygen Flow Rate Sepsis Recent Fever Within 48 Hours Sepsis New/Unexplained Change in Mental Status Sepsis Action Taken by Nursing 12/01/21 15:00 12/01/21 15:10 12/01/21 15:20 Pulse Rate 69 69 70 Pulse Rate [Apical] Pulse Rate from SpO2 Sensor 69 69 70 Pulse Rhythm Pulse Rhythm [Apical] Pulse Strength Pulse Strength [Apical] Respiratory Rate 19 25 H 21 Respiratory Effort / Characteristics Respiratory Depth Respiratory Pattern Blood Pressure 117/59 L Blood Pressure [Right Arm] Blood Pressure Mean 78 Blood Pressure Mean [Right Arm] Blood Pressure Position Blood Pressure Position [Right Arm] Pulse Oximetry 95 93 93 Oxygen Delivery Method Oxygen Flow Rate Sepsis Recent Fever Within 48 Hours Sepsis New/Unexplained Change in Mental Status Sepsis Action Taken by Nursing 12/01/21 15:30 12/01/21 15:40 12/01/21 15:50 Pulse Rate 67 69 77 Pulse Rate [Apical] Pulse Rate from SpO2 Sensor 68 68 77 Pulse Rhythm Pulse Rhythm [Apical] Pulse Strength Pulse Strength [Apical] Respiratory Rate 22 22 19 Respiratory Effort / Characteristics Respiratory Depth Respiratory Pattern Blood Pressure 111/55 L Blood Pressure [Right Arm] Blood Pressure Mean 73 Blood Pressure Mean [Right Arm] Blood Pressure Position Blood Pressure Position [Right Arm] Pulse Oximetry 95 95 93 Oxygen Delivery Method Oxygen Flow Rate Sepsis Recent Fever Within 48 Hours Sepsis New/Unexplained Change in Mental Status Sepsis Action Taken by Nursing 12/01/21 15:58 12/01/21 16:52 12/01/21 17:00 Pulse Rate Pulse Rate [Apical] 77 68 Pulse Rate from SpO2 Sensor Pulse Rhythm Pulse Rhythm [Apical] Regular Regular Pulse Strength Pulse Strength [Apical] Normal Normal Respiratory Rate 16 19 Respiratory Effort / Characteristics Non-Labored Non-Labored Respiratory Depth Normal Normal Respiratory Pattern Regular Blood Pressure Blood Pressure [Right Arm] 115/50 L 123/55 L Blood Pressure Mean Blood Pressure Mean [Right Arm] 71 77 Blood Pressure Position Blood Pressure Position [Right Arm] Lying Lying Pulse Oximetry 93 96 Oxygen Delivery Method Nasal Cannula Nasal Cannula Nasal Cannula Oxygen Flow Rate 3 3 3 Sepsis Recent Fever Within 48 Hours Sepsis New/Unexplained Change in Mental Status Sepsis Action Taken by Nursing 12/01/21 18:00 Pulse Rate Pulse Rate [Apical] 70 Pulse Rate from SpO2 Sensor Pulse Rhythm Pulse Rhythm [Apical] Regular Pulse Strength Pulse Strength [Apical] Respiratory Rate 22 Respiratory Effort / Characteristics Respiratory Depth Respiratory Pattern Blood Pressure Blood Pressure [Right Arm] 111/51 L Blood Pressure Mean Blood Pressure Mean [Right Arm] 71 Blood Pressure Position Blood Pressure Position [Right Arm] Pulse Oximetry 95 Oxygen Delivery Method Nasal Cannula Oxygen Flow Rate 3 Sepsis Recent Fever Within 48 Hours Sepsis New/Unexplained Change in Mental Status Sepsis Action Taken by Nursing Laboratory Data Result diagrams: 12/01/21 13:53 12/01/21 13:53 Lab Results 12/01/21 12/01/21 12/01/21 Range/Units 13:53 13:53 13:53 WBC 12.83 H (4.8-10.8) K/uL RBC 3.71 L (4.2-5.4) M/uL Hgb 10.9 L (12.0-16.0) g/dL Hct 33.1 L (37-47) % MCV 89.2 (80-100) fL MCH 29.4 (25-34) pg MCHC 32.9 (32-36) g/dL RDW Std Deviation 45.8 (36.4-46.3) fL RDW Coeff of Moose 13.9 (11.5-14.5) % Plt Count 360 (130-400) K/uL MPV 10.3 (7.4-10.4) fL Immature Gran % (Auto) 0.5 % Neut % (Auto) 85.4 % Lymph % (Auto) 6.5 % Bullitt % (Auto) 7.2 % Eos % (Auto) 0.2 % Baso % (Auto) 0.2 % Neut # (Auto) 10.96 H (1.4-6.5) K/uL Lymph # (Auto) 0.83 L (1.2-3.4) K/uL Bullitt # (Auto) 0.92 H (0.11-0.59) K/uL Eos # (Auto) 0.02 (0-0.5) K/uL Baso # (Auto) 0.03 (0-0.2) K/uL Immature Gran # (Auto) 0.07 H (0.00-0.02) K/uL Sodium 127 L (136-145) mmol/L Potassium 4.5 (3.5-5.1) mmol/L Chloride 93 L (98-107) mmol/L Carbon Dioxide 26 (21-32) mmol/L Anion Gap 8 (3-11) BUN 14 (6-23) mg/dl Creatinine 0.97 (0.6-1.2) mg/dl Est Cr Clr Drug Dosing Not Reportable Est GFR ( Amer) 61.7 ml/min Est GFR (Non-Af Amer) 53.3 ml/min BUN/Creatinine Ratio 14.4 (10-20) Glucose 89 (70-99(Fasting)) mg/dl Lactate 1.0 (0.4-2.0) mmol/L Calcium 8.5 (8.5-10.1) mg/dl Magnesium 1.9 (1.7-2.4) mg/dl Total Bilirubin 0.6 (0.2-1.0) mg/dl AST 165 H (13-39) U/L ALT 96 H (7-52) U/L Alkaline Phosphatase 266 H (34-104) U/L Troponin I High Sens 13.7 (0-14) pg/ml B-Natriuretic Peptide (0-100) pg/ml Total Protein 6.5 (6.0-8.3) gm/dl Albumin 3.0 L (3.4-5.0) gm/dl Globulin 3.5 (2.5-4.0) gm/dl Albumin/Globulin Ratio 0.9 (0.9-2) Procalcitonin (0-0.5) ng/ml SARS-CoV-2, RNA, NAAT (NEGATIVE) 12/01/21 12/01/21 12/01/21 Range/Units 13:58 14:10 14:31 WBC (4.8-10.8) K/uL RBC (4.2-5.4) M/uL Hgb (12.0-16.0) g/dL Hct (37-47) % MCV (80-100) fL MCH (25-34) pg MCHC (32-36) g/dL RDW Std Deviation (36.4-46.3) fL RDW Coeff of Moose (11.5-14.5) % Plt Count (130-400) K/uL MPV (7.4-10.4) fL Immature Gran % (Auto) % Neut % (Auto) % Lymph % (Auto) % Bullitt % (Auto) % Eos % (Auto) % Baso % (Auto) % Neut # (Auto) (1.4-6.5) K/uL Lymph # (Auto) (1.2-3.4) K/uL Bullitt # (Auto) (0.11-0.59) K/uL Eos # (Auto) (0-0.5) K/uL Baso # (Auto) (0-0.2) K/uL Immature Gran # (Auto) (0.00-0.02) K/uL Sodium (136-145) mmol/L Potassium (3.5-5.1) mmol/L Chloride (98-107) mmol/L Carbon Dioxide (21-32) mmol/L Anion Gap (3-11) BUN (6-23) mg/dl Creatinine (0.6-1.2) mg/dl Est Cr Clr Drug Dosing Est GFR ( Amer) ml/min Est GFR (Non-Af Amer) ml/min BUN/Creatinine Ratio (10-20) Glucose (70-99(Fasting)) mg/dl Lactate (0.4-2.0) mmol/L Calcium (8.5-10.1) mg/dl Magnesium (1.7-2.4) mg/dl Total Bilirubin (0.2-1.0) mg/dl AST (13-39) U/L ALT (7-52) U/L Alkaline Phosphatase (34-104) U/L Troponin I High Sens (0-14) pg/ml B-Natriuretic Peptide 170 H (0-100) pg/ml Total Protein (6.0-8.3) gm/dl Albumin (3.4-5.0) gm/dl Globulin (2.5-4.0) gm/dl Albumin/Globulin Ratio (0.9-2) Procalcitonin 0.86 H (0-0.5) ng/ml SARS-CoV-2, RNA, NAAT NEGATIVE (NEGATIVE) Administered Medications Sodium Chloride (Nss 1000ml) 1,000 mls @ 125 mls/hr IV .Q8H STA Stop: 12/01/21 21:38 Last Admin: 12/01/21 17:36 Dose: 125 mls/hr Documented by: [id number] Miscellaneous (Patient's Height &/Or Weight Needed) 1 ea N/A Q20M [facility] Stop: 12/31/21 17:44 Last Admin: 12/01/21 18:14 Dose: 1 ea Documented by: [id number] Admin: 12/01/21 18:13 Dose: 1 ea Documented by: [id number] Discontinued Medications Benzonatate (Benzonatate 100 Mg Capsule) 100 mg PO NOW ONE Stop: 12/01/21 18:26 Last Admin: 12/01/21 18:58 Dose: 100 mg Documented by: [id number] Sodium Chloride (Nss 1000ml) 500 mls @ 999 mls/hr IV .Q31M ONE Stop: 12/01/21 14:09 Last Infusion: 12/01/21 19:17 Dose: 0 mls/hr Documented by: [id number] Admin: 12/01/21 14:05 Dose: 999 mls/hr Documented by: [id number] Cefepime HCl (Maxipime) 2,000 mg in 20 mls @ 5 mls/min IV NOW STA; Protocol Stop: 12/01/21 15:54 Last Admin: 12/01/21 16:07 Dose: 5 mls/min Documented by: [id number] Vancomycin HCl 1,250 mg/ (Sodium Chloride) 275 mls @ 200 mls/hr IV NOW ONE Stop: 12/01/21 18:22 Last Infusion: 12/01/21 19:17 Dose: 0 mls/hr Documented by: [id number] Admin: 12/01/21 17:36 Dose: 200 mls/hr Documented by: [id number] Ioversol (Optiray 320 125ml) 120 ml IV ONCE ONE Stop: 12/01/21 16:26 Last Admin: 12/01/21 16:26 Dose: 120 ml Documented by: [id number] Imaging Data Radiologist's Impression: Chest X-Ray 12/01/21 13:13 SINGLE VIEW CHEST CLINICAL HISTORY: Cough. Dyspnea FINDINGS: An AP, portable, upright chest radiograph is compared to study dated 11/20/2021 and correlated with chest CT dated 11/19/2021. The cardiomediastinal silhouette is unremarkable noting atherosclerotic calcification of the thoracic aorta. There is bibasilar airspace consolidation, left greater than right. No large pleural effusion or pneumothorax is seen. The skeletal structures are osteopenic. The bony thorax is grossly intact. IMPRESSION: There is bibasilar airspace consolidation, left greater than right. Correlate clinically for evidence of pneumonia/aspiration pneumonitis. Radiographic follow-up to resolution is recommended. ACT 112: Negative or not required by law. Electronically signed by: Junior Vergara M.D. 12/01/2021 1:33 PM Chest CTA 12/01/21 13:39 CT angio chest PE protocol CT DOSE: 243.77 mGy.cm HISTORY: 86 years-old Female with SOB, Hypoxia. Acute shortness of breath with hypoxia TECHNIQUE: Multiple CTA images of the chest were obtained after the intravenous administration of 120 ml Optiray. Coronal and sagittal MIPS were obtained from the axial data set and were submitted for review. All measurements were obtai abel according to NASCET criteria. A dose lowering technique was utilized adhering to the principles of ALARA. COMPARISON: Chest radiograph of same day, CTA chest 11/19/2021 FINDINGS: CTA: The heart is upper limits of normal in size. No thoracic aortic aneurysm. No pulmonary emboli are identified. CT CHEST: No thyroid nodule. Prominent subcentimeter mediastinal and hilar lymph nodes measuring up to approximately 9 mm have increased in size from prior study and are likely reactive. Small left greater than right pleural effusions. Dense segmental consolidation of the left greater than right basal lower lobes with bronchial wall thickening and multifocal mucus plugging. Additional scattered groundglass densities of the upper lobes and lingula with scattered tree-in-bud nodules and consolidation within the inferior segment lingula. Mild intralobular septal thickening of the lung bases. No acute process of the imaged upper abdomen. Nonspecific mild distal esophageal wall thickening. Unremarkable soft tissues. No acute fracture. Degenerative changes of the shoulders and spine. IMPRESSION: 1. No pulmonary emboli are identified. 2. Dense airspace consolidation of the left greater than right lower lobes with additional scattered opacities of the upper lobes and lingula. Findings are suggestive of multifocal pneumonia. 3. Bronchial wall thickening suggestive of bronchitis with bibasilar mucous plugging. Correlate clinically to exclude aspiration. 4. Borderline enlarged adenopathy is likely reactive. ACT 112: Negative or not required by law. The above report was generated using voice recognition software. It may contain grammatical, syntax or spelling errors. Electronically signed by: Jean Claude Kohler M.D. 12/01/2021 4:46 PM Discharge Plan Visit Data Chief Complaint: Shortness of Breath/Dyspnea ED Provider: Dominik Rodriguez Discharge Problem: SOB (shortness of breath), Pneumonia, Hypoxia, Acute hypotension Forms Stand Alone Forms: My [facility] Prescriptions Prescriptions: No Action levothyroxine 25 mcg tablet 25 mcg PO DAILY Qty: 90 RF: 3 vitamin A palmitate 10,000 unit Tablet 10,000 unit PO DAILY RF: 0 ascorbic acid (vitamin C) [Vitamin C] 500 mg Tablet 500 mg PO QAM RF: 0 vitamin E 400 unit Capsule 400 unit PO 3XWK RF: 0 cholecalciferol (vitamin D3) [Vitamin D3] 25 mcg (1,000 unit) Capsule 25 mcg PO 3XWK RF: 0 zinc gluconate 30 mg Tablet 30 mg PO DAILY RF: 0 magnesium citrate 100 mg Capsule 100 mg PO DAILY PRN (Reason: LEG CRAMPS) RF: 0 metoprolol succinate 50 mg Tablet Extended Release 24 Hr 50 mg PO QAM 30 Days Qty: 30 RF: 0 Eliquis 2.5 mg Tablet 2.5 mg PO BID 30 Days Qty: 60 RF: 0 Referrals Referrals: Blanca Prado MD [Primary Care Provider] -
[2021-12-01] MEDS ORDERED: CEFEPIME 2,000 MG/20 ML VIAL IV STA (15:51)
[2021-12-01] MEDS ORDERED: OPTIRAY 320 125ml IV ONE (16:25)
--- NOTE | 2021-12-01 16:27 | Electrocardiogram Report ---
Test Reason : Blood Pressure : / mmHG Vent. Rate : 070 BPM Atrial Rate : 070 BPM P-R Int : 136 ms QRS Dur : 072 ms QT Int : 364 ms P-R-T Axes : 045 016 041 degrees QTc Int : 393 ms Normal sinus rhythm Left atrial enlargement Borderline ECG When compared with ECG of 22-NOV-2021 06:34, No significant change was found Confirmed by Selvin Pérez ([id number]) on 12/01/2021 4:26:19 PM Referred By: REFERRED SELF Confirmed By:Selvin Pérez
--- NOTE | 2021-12-01 16:48 | CT Scan Report ---
CT angio chest PE protocol CT DOSE: 243.77 mGy.cm HISTORY: 86 years-old Female with SOB, Hypoxia. Acute shortness of breath with hypoxia TECHNIQUE: Multiple CTA images of the chest were obtained after the intravenous administration of 120 ml Optiray. Coronal and sagittal MIPS were obtained from the axial data set and were submitted for review. All measurements were obtained according to NASCET criteria. A dose lowering technique was u tilized adhering to the principles of ALARA. COMPARISON: Chest radiograph of same day, CTA chest 11/19/2021 FINDINGS: CTA: The heart is upper limits of normal in size. No thoracic aortic aneurysm. No pulmonary emboli are madan ntified. CT CHEST: No thyroid nodule. Prominent subcentimeter mediastinal and hilar lymph nodes measuring up to approxim ately 9 mm have increased in size from prior study and are likely reactive. Small left greater than r ight pleural effusions. Dense segmental consolidation of the left greater than right basal lower lobe s with bronchial wall thickening and multifocal mucus plugging. Additional scattered groundglass dens ities of the upper lobes and lingula with scattered tree-in-bud nodules and consolidation within the inferior segment lingula. Mild intralobular septal thickening of the lung bases. No acute process of the imaged upper abdomen. Nonspecific mild distal esophageal wall thickening. Unr emarkable soft tissues. No acute fracture. Degenerative changes of the shoulders and spine. IMPRESSION: 1. No pulmonary emboli are identified. 2. Dense airspace consolidation of the left greater than right lower lobes with additional scattered opacities of the upper lobes and lingula. Findings are suggestive of multifocal pneumonia. 3. Bronchial wall thickening suggestive of bronchitis with bibasilar mucous plugging. Correlate clini bo to exclude aspiration. 4. Borderline enlarged adenopathy is likely reactive. ACT 112: Negative or not required by law. The above report was generated using voice recognition software. It may contain grammatical, syntax o r spelling errors. Electronically signed by: Jean Claude Kohler M.D. 12/01/2021 4:46 PM
[2021-12-01] MEDS ORDERED: VANCOMYCIN HCL 1,250 MG in SODIUM CHLORIDE 0.9% 250 ML IV ONE (17:00)
[2021-12-01] MEDS ORDERED: VANCOMYCIN CONSULT ACTIVE PRN (17:33)
--- NOTE | 2021-12-01 17:44 | History & Physical Report ---
Date of Service December 01, 2021 Assessment & Plan (1) Pneumonia: Plan: Evidence of multifocal pneumonia on imaging. S/P positive rhinovirus/enterovirus detected on [employer] PCR in 11/15/2021 - placed on vanco and cefepime due to recent hospital stay: possible hospital acquired pneumonia Xopenex as needed for shortness of breath (2) Hypothyroidism: Plan: Continue levothyroxine (3) CKD (chronic kidney disease) stage 3, GFR 30-59 ml/min: Plan: creatinine appears at baseline (4) Breast cancer, right: Plan: History noted. Follows with Dr. 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 Patient on apixaban. History of Present Illness Chief Complaint: SOB Primary Care Provider: Blanca Prado MD 86 yo female with PMG described below presented to the E with 2 weeks of worsening SOB accompanied by SOB. The patient reports she was diagnosed with rhinovirus in early October. Including today, she has returned 3x to the ER. She reports no significant improvement. Patient reports her SOB now occurs even at rest, which brought her to the ER. Patient is hard of hearing. She states she has had a decreased appetite during this time. Allergies Allergy/AdvReac Type Severity Reaction Status Date / Time tetracycline Allergy Mild RASH? Verified 12/01/21 16:52 tamoxifen AdvReac Severe Diarrhea Verified 12/01/21 16:52 Home Medications Medication Instructions Recorded Confirmed Type ascorbic acid (vitamin C) 500 mg 500 mg PO QAM 09/10/20 12/01/21 History tablet (Vitamin C) cholecalciferol (vitamin D3) 25 25 mcg PO 3XWK 09/10/20 12/01/21 History mcg (1,000 unit) capsule (Vitamin D3) vitamin E 400 unit capsule 400 unit PO 3XWK 09/10/20 12/01/21 History levothyroxine 25 mcg tablet 25 mcg PO DAILY #90 tab 11/03/21 12/01/21 Rx magnesium citrate 100 mg capsule 100 mg PO DAILY PRN 11/15/21 12/01/21 History zinc gluconate 30 mg tablet 30 mg PO DAILY 11/15/21 12/01/21 History apixaban 2.5 mg tablet (Eliquis) 2.5 mg PO BID 30 Days #60 tab 11/23/21 12/01/21 Rx metoprolol succinate 50 mg 50 mg PO QAM 30 Days #30 tab 11/23/21 12/01/21 Rx tablet,extended release 24 hr vitamin A palmitate 10,000 unit 10,000 unit PO DAILY 12/01/21 12/01/21 History tablet Past Med/Surg History Medical History Abnormal finding on mammography Asymptomatic menopausal state Cataract CKD (chronic kidney disease) stage 3, GFR 30-59 ml/min Dizziness "recurrent viral infection undiagnosed, only every few years" Elevated blood pressure reading without diagnosis of hypertension History of breast cancer Right side, "WLE", stage 1 cancer, declined chemo/radiation, monitored with mamogram and cbc Leg pain, left hx calf, tx therapy, healed "in 3 years" Osteoarthritis Surgical History History of bilateral tubal ligation History of cataract surgery L cataract History of lumpectomy of right breast History of nephrectomy left History of tonsillectomy Social History Smoking Status: Never smoker Second Hand Exposure: No; Hx Alcohol Use: Yes Alcohol type: wine Hx Substance Use: No Preferred Language: Urdu Communication Ability: Effective 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 Beliefs That Will Affect Care: None Current Living Situation: Alone Feels Safe at Home: Yes Safety Concerns: Feels Safe At This Time Assistive Devices: Glasses Review of Systems Constitutional: + fever, + weakness and + weight loss; no weight gain Eyes: no blind spots and no diplopia Ear, Nose, Mouth, Throat: no ear pain Respiratory: + cough and + dyspnea Cardiovascular: no chest pain Gastrointestinal: no abdominal pain Genitourinary: no dysuria Integumentary: no acne Neurologic: no gait abnormality Psychiatric: no behavioral changes Endocrine: + fatigue Hematologic / Lymphatic: no easy bleeding Allergy / Immunological: no lip swelling Physical Exam Constitutional: + ill appearing (using accesory muscles to breath, in moderate distress) Eyes: PERRL, conjunctivae normal, anicteric sclerae ENMT: external ear and nose normal, oropharynx normal Neck: trachea midline, no thyromegaly Respiratory: + uses accessory muscles Auscultation: + diminished lung sounds and + rhonchi Cardiovascular: RRR, no murmur, no edema Gastrointestinal (Abdomen): normal bowel sounds, soft, nontender, no hepatosplenomegaly Musculoskeletal: no cyanosis or clubbing, extremities motor strength 5/5 Neurologic: PERRL, EOMI, accommodation nl, no face palsy, no dysarthria Psychiatric: A+Ox3, euthymic affect Lymphatic: no cervical or axillary lymphadenopathy Results & Data Results & Data ([facility]) Vital Signs (Past 12 Hours) Vital Signs Pulse Pulse Resp BP BP Pulse Ox 12/01/21 16:52 77 16 115/50 L 93 12/01/21 15:50 77 19 93 12/01/21 15:40 69 22 95 12/01/21 15:30 67 22 111/55 L 95 12/01/21 15:20 70 21 93 12/01/21 15:10 69 25 H 93 12/01/21 15:00 69 19 117/59 L 95 12/01/21 14:50 72 24 95 12/01/21 14:40 69 24 95 12/01/21 14:30 72 26 H 97 12/01/21 14:20 70 21 96 12/01/21 14:10 74 18 98 12/01/21 14:00 76 18 120/60 96 12/01/21 13:57 97 12/01/21 13:52 77 24 96 12/01/21 13:15 81 19 90/73 L 86 L PG Care Time/CCT Total # of Minutes Spent Total Time Spent with Patient: Total time spent is greater than 50% in coordination of care (as documented) at patient's floor/unit and/or counseling patient: Coding Level of Care Code 72140 Initial Inpt Care Lvl 3 Diagnoses Pneumonia J18.9 Hypothyroidism E03.9 CKD (chronic kidney disease) stage 3, GFR 30-59 ml/min N18.30 Breast cancer, right C50.911 Hyponatremia E87.1 Atrial flutter I48.92
[2021-12-01] MEDS: Patient's HEIGHT &/or WEIGHT Needed SCH ×5 (18:13→21:04)
[2021-12-01] MEDS ORDERED: BENZONATATE 100 MG CAPSULE PO ONE (18:25)
[2021-12-01] MEDS ORDERED: NON-FORMULARY MEDICATION (Magnesium Citrate 100 mg Capsule) PO PRN (18:35)
--- NOTE | 2021-12-01 20:21 | Pharmacy Report ---
Pharmacy Vanc AUC Short Note - Date of Service December 01, 2021 - Assessment & Plan Assessment 86 year old F receiving IV vancomycin and cefepime for treatment of pneumonia. MRSA nasal pending, blood cultures pending. Renal function stable. Day #1 of antimicrobial therapy. Plan Vancomycin * AUC/DIONNA is the preferred PK/PD target for vancomycin * AUC guided dosing is effective and associated with decreased risk of nephrotoxicity compared to traditional trough targets * Trough level of 16.7mcg/mL is predicted to achieve target AUC/DIONNA of 400-600 mg/L.hr and may be associated with a 12% risk of nephrotoxicity * S/p vancomycin 1250mg IV X 1 loading dose. Begin maintenance regimen of 1gm IV q24h. * Trough level will be obtained around steady state if vancomycin continued, or sooner if clinically indicated. Pharmacy will continue to follow and will adjust dose/frequency as necessary. Thank you.
[2021-12-01] MEDS: APIXABAN 2.5 MG TAB PO SCH (21:04)
[2021-12-01] MEDS ORDERED: LEVALBUTEROL HCL 1.25 MG/3 ML NEB NEB PRN (22:06)
[2021-12-02] MEDS ORDERED: diphenhydrAMINE 50 MG/ML VIAL IV STA (03:28)
[2021-12-02] MEDS: ACETAMINOPHEN 325 MG TAB PO PRN ×2 (04:03→23:26)
[2021-12-02] MEDS: CEFEPIME 2,000 MG in SYRINGE 0 ML IV SCH ×2 (04:34→16:48)
[2021-12-02] MEDS ORDERED: VANCOMYCIN HCL 1,000 MG in SODIUM CHLORIDE 0.9% 250 ML IV SCH (06:00)
[2021-12-02] MEDS: LEVOTHYROXINE SODIUM 25 MCG TABLET PO SCH (06:21)
[2021-12-02 07:31] LABS: Hematocrit (blood only) 29.2 % (37-47); Hemoglobin 9.9 g/dL (12.0-16.0); Mean Corpuscular Hemoglobin 30.2 pg (25-34); Mean Corpuscular Hgb Conc 33.9 g/dL (32-36); Mean Platelet Volume 10.6 fL (7.4-10.4); Platelet Count 309 K/uL (130-400); RDW Coefficient of Variation 13.8 % (11.5-14.5); RDW Standard Deviation 45.6 fL (36.4-46.3); Red Blood Count 3.28 M/uL (4.2-5.4); White Blood Count 9.91 K/uL (4.8-10.8)
--- NOTE | 2021-12-02 07:53 | Hospitalist Progress Note ---
Date of Service December 02, 2021 Assessment & Plan (1) Pneumonia: Plan: Evidence of multifocal pneumonia on imaging, new from 11/19/21. S/P positive rhinovirus/enterovirus detected on bio [employer] PCR in 11/15/2021 at that time not significant imaging changes - Healthcare associated pneumonia, vanco, cefepime and azithro, mrsa screen negative stop vanco Xopenex as needed for shortness of breath -Procalcitonin elevated at time of admission, lactic acid normal (2) Hypothyroidism: Plan: Continue levothyroxine, last check 11/19 (3) CKD (chronic kidney disease) stage 3, GFR 30-59 ml/min: Plan: creatinine appears at baseline (4) Breast cancer, right: Plan: History noted. Follows with Dr. 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 maintained on metoprolol Patient on apixaban. Plan: apixiban for dvt prevention Admission and Anticipated Discharge Date Admission Date: December 01, 2021 Subjective pt has a loose and productive cough this am she feels tired expressed frustration about her hearing loss Review of Systems Review of Systems: Mild distress and complains of significant fatigue no headache, no visual changes no speech or swallowing issues very hard of hearing no chest pain, pressure or palpitations Some shortness of breath and productive cough no abdominal pain, nausea or vomiting, diarrhea or constipation no dysuria, hematuria or frequency no focal joint pain or swelling no back pain, CVA tenderness or radicular pain no bruising, bleeding or rashes no focal signs of weakness or numbness or altered sensation no complaints of anxiety or depression.. Physical Exam Physical Exam: The patient appeared well nourished and normally developed. Vital signs as documented. Head exam is normocephalic atraumatic Neck is without JVD, thyromegaly, or carotid bruits. Lungs coarse rhonchi bilaterally which improved with coughing Cardiac exam, Rhythm is regular.. No murmurs, rubs or gallops. Abdominal exam reveals normal bowel sounds, soft non tender, no masses Extremities are nonedematous and both pedal pulses are present Neurologic exam is alert and oriented, no focal loss of strength or sensation Skin is without bruises or rashes Psychologically is without concerns for anxiety or depression.. Results & Data Results & Data ([facility]) Vital Signs (Past 12 Hours) Vital Signs Temp Pulse Pulse Resp BP Pulse Ox 12/02/21 07:30 67 12/02/21 07:00 98.8 F 69 18 94/58 L 94 12/02/21 05:33 100.2 F H 12/02/21 03:58 100.6 F H 85 16 117/68 93 12/02/21 03:19 99.1 F 88 18 124/71 93 12/01/21 23:35 76 12/01/21 22:43 99.0 F 79 18 115/58 L 95 12/01/21 20:38 99.0 F 74 20 114/66 97 12/01/21 20:30 74 PG Care Time/CCT Total # of Minutes Spent Total Time Spent with Patient: Total time spent is greater than 50% in coordination of care (as documented) at patient's floor/unit and/or counseling patient: Coding Level of Care Code 00573 Subseq Hosp Care Lvl 2 Diagnoses Pneumonia J18.9 Hypothyroidism E03.9 CKD (chronic kidney disease) stage 3, GFR 30-59 ml/min N18.30 Breast cancer, right C50.911 Hyponatremia E87.1 Atrial flutter I48.92
[2021-12-02 07:56] LABS: BUN Creatinine Ratio 15.2 (10-20); Calcium 7.9 mg/dl (8.5-10.1); Creatinine Clr Calc Pharmacy 35.4 ml/min; Est GFR (African American) 65.8 ml/min; Est GFR (Non-African American) 56.8 ml/min
[2021-12-02] MEDS ORDERED: VITAMIN A PALMITATE 10000 UNIT PO SCH (09:00)
[2021-12-02] MEDS ORDERED: METOPROLOL SUCC 50MG EXT REL TAB PO SCH (09:00)
[2021-12-02] MEDS ORDERED: NON-FORMULARY MEDICATION (Zinc Gluconate 30 mg Tablet) PO SCH (09:00)
[2021-12-02] MEDS ORDERED: ASPIRIN 81 MG ECTAB PO SCH (09:00)
[2021-12-02] MEDS: APIXABAN 2.5 MG TAB PO SCH ×2 (09:35→20:42)
[2021-12-02] MEDS: TOCOPHERYL, DL-ALPHA 400 UNITS 180 MG CAP PO SCH (09:36)
[2021-12-02] MEDS: ASCORBIC ACID 500 MG TAB PO SCH (09:36)
[2021-12-02] MEDS: CHOLECALCIFEROL 1,000 UNITS 25 MCG TAB PO SCH (09:36)
[2021-12-02] MEDS: AZITHROMYCIN 500 MG in DEXTROSE 5% 250 ML IV SCH (09:50)
--- NOTE | 2021-12-02 17:54 | Hospitalist Progress Note ---
Date of Service December 02, 2021 Assessment & Plan (1) Pneumonia: Plan: Evidence of multifocal pneumonia on imaging, new from 11/19/21. S/P positive rhinovirus/enterovirus detected on bio fire PCR in 11/15/2021 at that time not significant imaging changes - Possible gram-negative HCAP Healthcare associated pneumonia, vanco, cefepime and azithro, mrsa screen negative stop vanco Xopenex as needed for shortness of breath -Procalcitonin elevated at time of admission, lactic acid normal (2) Hypothyroidism: Plan: Continue levothyroxine, last check 11/19 (3) CKD (chronic kidney disease) stage 3, GFR 30-59 ml/min: Plan: creatinine appears at baseline (4) Breast cancer, right: Plan: History noted. Follows with Dr. 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 maintained on metoprolol Patient on apixaban. Plan: apixiban for dvt prevention Admission and Anticipated Discharge Date Admission Date: December 01, 2021 Results & Data Results & Data ([facility]) Vital Signs (Past 12 Hours) Vital Signs Temp Pulse Pulse Resp BP Pulse Ox 12/02/21 14:00 99.1 F 76 18 107/56 L 91 12/02/21 10:54 99.0 F 75 18 99/60 L 90 12/02/21 07:30 67 12/02/21 07:00 98.8 F 69 18 94/58 L 94 PG Care Time/CCT Total # of Minutes Spent Total Time Spent with Patient: Total time spent is greater than 50% in coordination of care (as documented) at patient's floor/unit and/or counseling patient: Coding Level of Care Code None Diagnoses Pneumonia J18.9 Hypothyroidism E03.9 CKD (chronic kidney disease) stage 3, GFR 30-59 ml/min N18.30 Breast cancer, right C50.911 Hyponatremia E87.1 Atrial flutter I48.92
[2021-12-02] MEDS ORDERED: BENZONATATE 100 MG CAPSULE PO ONE (20:09)
[2021-12-02] MEDS: guaiFENesin 600 MG TABCR PO SCH (20:42)
[2021-12-03] MEDS: CEFEPIME 2,000 MG in SYRINGE 0 ML IV SCH ×2 (04:02→15:48)
[2021-12-03] MEDS: LEVOTHYROXINE SODIUM 25 MCG TABLET PO SCH (06:21)
[2021-12-03] MEDS: AZITHROMYCIN 500 MG in DEXTROSE 5% 250 ML IV SCH (08:26)
[2021-12-03] MEDS: guaiFENesin 600 MG TABCR PO SCH ×2 (08:26→22:21)
[2021-12-03] MEDS: APIXABAN 2.5 MG TAB PO SCH ×2 (08:26→22:21)
[2021-12-03] MEDS: ASCORBIC ACID 500 MG TAB PO SCH (08:26)
[2021-12-03 08:57] LABS: Basophils # (auto) 0.01 K/uL (0-0.2); Basophils % (auto) 0.1 %; Eosinophils # (auto) 0.22 K/uL (0-0.5); Eosinophils % (auto) 2.4 %; Hematocrit (blood only) 34.8 % (37-47); Hemoglobin 11.6 g/dL (12.0-16.0); Immature Granulocytes # (auto) 0.05 K/uL (0.00-0.02); Immature Granulocytes % (auto) 0.6 %; Lymphocytes # (auto) 0.94 K/uL (1.2-3.4); Lymphocytes % (auto) 10.4 %; Mean Corpuscular Hemoglobin 29.7 pg (25-34); Mean Corpuscular Hgb Conc 33.3 g/dL (32-36); Mean Corpuscular Volume 89.2 fL (80-100); Mean Platelet Volume 10.2 fL (7.4-10.4); Monocytes # (auto) 0.57 K/uL (0.11-0.59); Monocytes % (auto) 6.3 %; Neutrophils # (auto) 7.28 K/uL (1.4-6.5); Neutrophils % (auto) 80.2 %; Platelet Count 352 K/uL (130-400); RDW Coefficient of Variation 14.1 % (11.5-14.5); RDW Standard Deviation 46.4 fL (36.4-46.3); White Blood Count 9.07 K/uL (4.8-10.8)
[2021-12-03 09:22] LABS: Calcium 8.8 mg/dl (8.5-10.1); Potassium 3.8 mmol/L (3.5-5.1)
[2021-12-03 09:28] LABS: BUN Creatinine Ratio 15.2 (10-20); Creatinine Clr Calc Pharmacy 35.4 ml/min; Est GFR (African American) 65.8 ml/min; Est GFR (Non-African American) 56.8 ml/min
--- NOTE | 2021-12-03 14:12 | Hospitalist Progress Note ---
Date of Service December 03, 2021 Assessment & Plan (1) Pneumonia: Plan: Evidence of multifocal pneumonia on imaging, new from 11/19/21. S/P positive rhinovirus/enterovirus detected on bio fire PCR in 11/15/2021 at that time not significant imaging changes - Possible gram-negative HCAP Healthcare associated pneumonia, vanco, cefepime and azithro, mrsa screen negative stop vanco Xopenex as needed for shortness of breath -Procalcitonin elevated at time of admission, lactic acid normal -despite fever wbc has come down (2) Hypothyroidism: Plan: Continue levothyroxine, last check 11/19 (3) CKD (chronic kidney disease) stage 3, GFR 30-59 ml/min: Plan: creatinine appears at baseline (4) Breast cancer, right: Plan: History noted. Follows with Dr. 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 maintained on metoprolol Patient on apixaban. Plan: apixiban for dvt prevention Admission and Anticipated Discharge Date Admission Date: December 01, 2021 Subjective pt has a loose and productive cough did have fevers last night, still very fatigued continued frustration about her hearing loss Review of Systems Review of Systems: Mild distress and complains of significant fatigue no headache, no visual changes no speech or swallowing issues very hard of hearing no chest pain, pressure or palpitations Some shortness of breath and productive cough no abdominal pain, nausea or vomiting, diarrhea or constipation no dysuria, hematuria or frequency no focal joint pain or swelling no back pain, CVA tenderness or radicular pain no bruising, bleeding or rashes no focal signs of weakness or numbness or altered sensation no complaints of anxiety or depression.. Physical Exam Physical Exam: The patient appeared well nourished and normally developed. Vital signs as documented. Head exam is normocephalic atraumatic Neck is without JVD, thyromegaly, or carotid bruits. Lungs coarse rhonchi bilaterally continues with productive cough Cardiac exam, Rhythm is regular.. No murmurs, rubs or gallops. Abdominal exam reveals normal bowel sounds, soft non tender, no masses Extremities are nonedematous and both pedal pulses are present Neurologic exam is alert and oriented, no focal loss of strength or sensation Skin is without bruises or rashes Psychologically is without concerns for anxiety or depression.. Results & Data Results & Data ([facility]) Vital Signs (Past 12 Hours) Vital Signs Temp Pulse Pulse Resp BP Pulse Ox 12/03/21 11:53 98.1 F 67 18 98/62 L 91 12/03/21 08:19 98.2 F 61 18 97/59 L 91 12/03/21 08:00 63 12/03/21 04:00 98.2 F 64 18 102/63 96 PG Care Time/CCT Total # of Minutes Spent Total Time Spent with Patient: Total time spent is greater than 50% in coordination of care (as documented) at patient's floor/unit and/or counseling patient: Coding Level of Care Code 82635 Subseq Hosp Care Lvl 2 Diagnoses Pneumonia J18.9 Hypothyroidism E03.9 CKD (chronic kidney disease) stage 3, GFR 30-59 ml/min N18.30 Breast cancer, right C50.911 Hyponatremia E87.1 Atrial flutter I48.92
[2021-12-04] MEDS: CEFEPIME 2,000 MG in SYRINGE 0 ML IV SCH (04:59)
[2021-12-04] MEDS: LEVOTHYROXINE SODIUM 25 MCG TABLET PO SCH (05:25)
[2021-12-04] MEDS: TOCOPHERYL, DL-ALPHA 400 UNITS 180 MG CAP PO SCH (09:15)
[2021-12-04] MEDS: CHOLECALCIFEROL 1,000 UNITS 25 MCG TAB PO SCH (09:16)
[2021-12-04] MEDS: guaiFENesin 600 MG TABCR PO SCH ×3 (09:30→19:34)
[2021-12-04] MEDS: APIXABAN 2.5 MG TAB PO SCH ×2 (09:30→19:31)
[2021-12-04] MEDS: ASCORBIC ACID 500 MG TAB PO SCH (09:31)
[2021-12-04] MEDS ORDERED: levoFLOXacin/D5W 750 MG/150 ML BAG IV SCH (11:00)
[2021-12-04] MEDS ORDERED: CETIRIZINE HCL 10 MG TABLET PO ONE (11:00)
[2021-12-04] MEDS: AZITHROMYCIN 500 MG in DEXTROSE 5% 250 ML IV SCH (11:16)
--- NOTE | 2021-12-04 12:01 | Hospitalist Progress Note ---
Date of Service December 04, 2021 Assessment & Plan (1) Pneumonia: Plan: Evidence of multifocal pneumonia on imaging, new from 11/19/21. S/P positive rhinovirus/enterovirus detected on bio [employer] PCR in 11/15/2021 at that time not significant imaging changes - Possible gram-negative HCAP Healthcare associated pneumonia, vanco, cefepime and azithro, mrsa screen negative stop vanco with rash changed to levaquin to cover both on 12/04/21 Xopenex as needed for shortness of breath -Procalcitonin elevated at time of admission, lactic acid normal (2) Hypothyroidism: Plan: Continue levothyroxine, last check 11/19 (3) CKD (chronic kidney disease) stage 3, GFR 30-59 ml/min: Plan: creatinine appears at baseline (4) Breast cancer, right: Plan: History noted. Follows with Dr. 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 maintained on metoprolol Patient on apixaban. Plan: apixiban for dvt prevention PT/OT Admission and Anticipated Discharge Date Admission Date: December 01, 2021 Subjective pt states she feels better has a diffuse macular papular rash that seems consistent with a drug eruption, no respiratory component, will change antibi otics add antihistamine Review of Systems Review of Systems: Mild distress and complains of significant fatigue no headache, no visual changes no speech or swallowing issues very hard of hearing no chest pain, pressure or palpitations Some shortness of breath and productive cough no abdominal pain, nausea or vomiting, diarrhea or constipation no dysuria, hematuria or frequency no focal joint pain or swelling no back pain, CVA tenderness or radicular pain diffuse rash that started 12/03/21 no focal signs of weakness or numbness or altered sensation no complaints of anxiety or depression.. Physical Exam Physical Exam: The patient appeared well nourished and normally developed. Vital signs as documented. Head exam is normocephalic atraumatic Neck is without JVD, thyromegaly, or carotid bruits. Lungs coarse rhonchi bilaterally continues with productive cough Cardiac exam, Rhythm is regular.. No murmurs, rubs or gallops. Abdominal exam reveals normal bowel sounds, soft non tender, no masses Extremities are nonedematous and both pedal pulses are present Neurologic exam is alert and oriented, no focal loss of strength or sensation Skin is with diffuse rashes Psychologically is without concerns for anxiety or depression.. Results & Data Results & Data ([facility]) Vital Signs (Past 12 Hours) Vital Signs Temp Pulse Pulse Resp BP Pulse Ox Pulse Ox 12/04/21 11:23 98.4 F 66 18 114/68 90 12/04/21 08:16 68 12/04/21 08:13 94 12/04/21 08:02 98.4 F 69 18 114/63 94 12/04/21 02:56 98.4 F 71 18 115/70 95 PG Care Time/CCT Total # of Minutes Spent Total Time Spent with Patient: Total time spent is greater than 50% in coordination of care (as documented) at patient's floor/unit and/or counseling patient: Coding Level of Care Code 47724 Subseq Hosp Care Lvl 2 Diagnoses Pneumonia J18.9 Hypothyroidism E03.9 CKD (chronic kidney disease) stage 3, GFR 30-59 ml/min N18.30 Breast cancer, right C50.911 Hyponatremia E87.1 Atrial flutter I48.92
[2021-12-04] MEDS: diphenhydrAMINE Capsule 25 MG CAP PO PRN ×2 (17:54→19:30)
[2021-12-05] MEDS: LEVOTHYROXINE SODIUM 25 MCG TABLET PO SCH (05:41)
[2021-12-05] MEDS: diphenhydrAMINE Capsule 25 MG CAP PO PRN ×2 (05:42→20:12)
[2021-12-05] MEDS: ASCORBIC ACID 500 MG TAB PO SCH ×2 (08:59→09:00)
[2021-12-05] MEDS: APIXABAN 2.5 MG TAB PO SCH ×2 (08:59→20:05)
[2021-12-05] MEDS: guaiFENesin 600 MG TABCR PO SCH ×2 (08:59→20:05)
--- NOTE | 2021-12-05 11:40 | Hospitalist Progress Note ---
Date of Service December 05, 2021 Assessment & Plan (1) Pneumonia: Plan: Evidence of multifocal pneumonia on imaging, new from 11/19/21. S/P positive rhinovirus/enterovirus detected on bio [employer] PCR in 11/15/2021 at that time not significant imaging changes - Possible gram-negative HCAP or possible atypical pneumonia with rash suspected to be from Cefepime/Azithro, changed to levaquin to cover both on 12/04/21 -Procalcitonin elevated at time of admission, lactic acid normal (2) Hypothyroidism: Plan: Continue levothyroxine, last check 11/19 (3) CKD (chronic kidney disease) stage 3, GFR 30-59 ml/min: Plan: creatinine appears at baseline (4) Breast cancer, right: Plan: History noted. Follows with Dr. 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 maintained on metoprolol Patient on apixaban. Plan: apixiban for dvt prevention PT/OT Admission and Anticipated Discharge Date Admission Date: December 01, 2021 Subjective pt states she feels better has a diffuse macular papular rash that seems consistent with a drug eruption, no itching, slight fading since 12/04/21. did change antibiotics added antihistamine awaiting PT/OT eval to inform family of progress Review of Systems Review of Systems: Mild distress and complains of significant fatigue no headache, no visual changes no speech or swallowing issues very hard of hearing no chest pain, pressure or palpitations Some shortness of breath and productive cough no abdominal pain, nausea or vomiting, diarrhea or constipation no dysuria, hematuria or frequency no focal joint pain or swelling no back pain, CVA tenderness or radicular pain diffuse rash that started 12/03/21 no focal signs of weakness or numbness or altered sensation no complaints of anxiety or depression.. Physical Exam Physical Exam: The patient appeared well nourished and normally developed. Vital signs as documented. Head exam is normocephalic atraumatic Neck is without JVD, thyromegaly, or carotid bruits. Lungs coarse rhonchi bilaterally continues with productive cough Cardiac exam, Rhythm is regular.. No murmurs, rubs or gallops. Abdominal exam reveals normal bowel sounds, soft non tender, no masses Extremities are nonedematous and both pedal pulses are present Neurologic exam is alert and oriented, no focal loss of strength or sensation Skin is with diffuse rashes Psychologically is without concerns for anxiety or depression.. Results & Data Results & Data ([facility]) Vital Signs (Past 12 Hours) Vital Signs Temp Pulse Pulse Resp BP BP Pulse Ox 12/05/21 11:12 98.2 F 75 16 105/66 90 12/05/21 10:28 95 12/05/21 07:11 65 12/05/21 06:30 98.4 F 72 18 124/72 96 12/05/21 03:19 98.2 F 78 18 119/71 95 PG Care Time/CCT Total # of Minutes Spent Total Time Spent with Patient: Total time spent is greater than 50% in coordination of care (as documented) at patient's floor/unit and/or counseling patient: Coding Level of Care Code 28309 Subseq Hosp Care Lvl 2 Diagnoses Pneumonia J18.9 Hypothyroidism E03.9 CKD (chronic kidney disease) stage 3, GFR 30-59 ml/min N18.30 Breast cancer, right C50.911 Hyponatremia E87.1 Atrial flutter I48.92
[2021-12-06] MEDS: LEVOTHYROXINE SODIUM 25 MCG TABLET PO SCH ×2 (05:06→05:43)
[2021-12-06 06:49] LABS: Hematocrit (blood only) 34.5 % (37-47); Hemoglobin 11.3 g/dL (12.0-16.0); Mean Corpuscular Hemoglobin 29.3 pg (25-34); Mean Corpuscular Hgb Conc 32.8 g/dL (32-36); Mean Corpuscular Volume 89.4 fL (80-100); Mean Platelet Volume 10.3 fL (7.4-10.4); Platelet Count 365 K/uL (130-400); RDW Coefficient of Variation 14.2 % (11.5-14.5); RDW Standard Deviation 46.3 fL (36.4-46.3); Red Blood Count 3.86 M/uL (4.2-5.4); White Blood Count 6.59 K/uL (4.8-10.8)
[2021-12-06 07:25] LABS: Calcium 8.8 mg/dl (8.5-10.1); Creatinine Clr Calc Pharmacy 40.7 ml/min; Est GFR (African American) 77.9 ml/min; Est GFR (Non-African American) 67.2 ml/min; Potassium 4.1 mmol/L (3.5-5.1)
[2021-12-06] MEDS: guaiFENesin 600 MG TABCR PO SCH ×2 (07:38→20:19)
[2021-12-06] MEDS: APIXABAN 2.5 MG TAB PO SCH ×2 (07:38→20:20)
[2021-12-06] MEDS: ASCORBIC ACID 500 MG TAB PO SCH (07:38)
[2021-12-06] MEDS: levoFLOXacin 750 MG TAB PO SCH (10:31)
--- NOTE | 2021-12-06 15:08 | Hospitalist Progress Note ---
Date of Service December 06, 2021 Assessment & Plan (1) Pneumonia: Plan: Evidence of multifocal pneumonia on imaging, new from 11/19/21. S/P positive rhinovirus/enterovirus detected on bio [employer] PCR in 11/15/2021 at that time not significant imaging changes - Possible gram-negative HCAP or possible atypical pneumonia with rash suspected to be from Cefepime/Azithro, changed to levaquin to cover both on 12/04/21 -Procalcitonin elevated at time of admission, lactic acid normal (2) Hypothyroidism: Plan: Continue levothyroxine, last check 11/19 (3) CKD (chronic kidney disease) stage 3, GFR 30-59 ml/min: Plan: creatinine appears at baseline (4) Breast cancer, right: Plan: History noted. 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 maintained on metoprolol Patient on apixaban. Plan: apixiban for dvt prevention PT/OT updated son Greg, will try to have flight this week, perhaps 12/08/21 and is in contact with case managment Admission and Anticipated Discharge Date Admission Date: December 01, 2021 Subjective pt states she feels better has a diffuse macular papular rash that seems consistent with a drug eruption, no itching, continues to fade updated son, Greg in [facility], will come out this weekend Review of Systems Review of Systems: Mild distress and complains of significant fatigue no headache, no visual changes no speech or swallowing issues very hard of hearing no chest pain, pressure or palpitations Some shortness of breath and productive cough no abdominal pain, nausea or vomiting, diarrhea or constipation no dysuria, hematuria or frequency no focal joint pain or swelling no back pain, CVA tenderness or radicular pain diffuse rash that started 12/03/21 no focal signs of weakness or numbness or altered sensation no complaints of anxiety or depression.. Physical Exam Physical Exam: The patient appeared well nourished and normally developed. Vital signs as documented. Head exam is normocephalic atraumatic Neck is without JVD, thyromegaly, or carotid bruits. Lungs coarse rhonchi bilaterally continues with productive cough Cardiac exam, Rhythm is regular.. No murmurs, rubs or gallops. Abdominal exam reveals normal bowel sounds, soft non tender, no masses Extremities are nonedematous and both pedal pulses are present Neurologic exam is alert and oriented, no focal loss of strength or sensation Skin is with diffuse rashes Psychologically is without concerns for anxiety or depression.. Results & Data Results & Data ([facility]) Vital Signs (Past 12 Hours) Vital Signs Temp Pulse Pulse Resp BP BP Pulse Ox 12/06/21 14:53 74 12/06/21 11:26 98.2 F 72 16 113/68 91 12/06/21 08:00 12/06/21 07:08 66 12/06/21 06:27 98.4 F 80 16 122/57 L 91 12/06/21 03:07 97.9 F 73 16 111/64 95 Pulse Ox 12/06/21 14:53 12/06/21 11:26 12/06/21 08:00 94 12/06/21 07:08 12/06/21 06:27 12/06/21 03:07 PG Care Time/CCT Total # of Minutes Spent Total Time Spent with Patient: Total time spent is greater than 50% in coordination of care (as documented) at patient's floor/unit and/or counseling patient: Coding Level of Care Code 06158 Subseq Hosp Care Lvl 2 Diagnoses Pneumonia J18.9 Hypothyroidism E03.9 CKD (chronic kidney disease) stage 3, GFR 30-59 ml/min N18.30 Breast cancer, right C50.911 Hyponatremia E87.1 Atrial flutter I48.92
[2021-12-07] MEDS: LEVOTHYROXINE SODIUM 25 MCG TABLET PO SCH (05:23)
[2021-12-07] MEDS: ASCORBIC ACID 500 MG TAB PO SCH (08:10)
[2021-12-07] MEDS: APIXABAN 2.5 MG TAB PO SCH ×2 (08:10→19:50)
[2021-12-07] MEDS: CHOLECALCIFEROL 1,000 UNITS 25 MCG TAB PO SCH (08:11)
[2021-12-07] MEDS: TOCOPHERYL, DL-ALPHA 400 UNITS 180 MG CAP PO SCH (08:11)
[2021-12-07] MEDS: guaiFENesin 600 MG TABCR PO SCH ×2 (10:01→19:50)
--- NOTE | 2021-12-07 13:37 | Hospitalist Progress Note ---
Date of Service December 07, 2021 Assessment & Plan (1) Pneumonia: Plan: CT-C: Dense airspace consolidation of the left greater than right lower lobes with additional scattered opacities of the upper lobes and lingula. Findings are suggestive of multifocal pneumonia. 11/15/2021: Positive rhinovirus/enterovirus Suspected atypical pneumonia versus gram-negative HCAP Patient initially treated with cefepime/azithromycin but developed rash, was converted to Levaquin Tolerating Levaquin well since 12/04, will complete 5-7-day course (until 12/09- 12/2011) PCT elevated, repeat pending Lactic acid normal on admit Patient continues to feel fatigued and weak in ADLs. Was seen by PT/OT who recommend return home, patient reports she cannot cook/shop/function on her own at this time. Her son is flying out to [place] to help care for her, flight lands late tomorrow evening and will be able to set up a safe environment tomorrow evening/Sunday morning (2) Hypothyroidism: Plan: Continue levothyroxine, last check 11/19 (3) CKD (chronic kidney disease) stage 3, GFR 30-59 ml/min: Plan: creatinine appears at baseline (4) Breast cancer, right: Plan: History noted. 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 maintained on metoprolol Patient on apixaban. Plan: apixiban for dvt prevention See above, son arriving in [place] to help set up home as safe environment for patient to be discharged Admission and Anticipated Discharge Date Admission Date: December 01, 2021 Subjective While sheSeen at bedside. Patient continues to feel fatigued he feels she is gradually improving does not feel strong enough and does not feel she is able to do things at home such as cook, clean, or obtain groceries/food. Is also worried about falling with no one at home. Discussed with her son by case management, he is flying to staying care for her in [place] and will be arriving by flight late tomorrow evening. She denies fever, chills, sweats, difficulty breathing, chest pain this morning. Review of Systems Review of Systems: All systems reviewed & are unremarkable except as noted in Subjective Physical Exam Physical Exam: General: A&Ox3. NAD. Cooperative. HEENT: Atraumatic, normocephalic. Vision and hearing grossly intact Pulm: Diffusely coarse. Symmetrical chest rise. No increase in work of breathing. No respiratory distress. Cardiac: RRR, -mrg. Radial pulses intact and symmetrical. Abdominal: Nontender, nondistended, soft. BS present. Results & Data Results & Data ([facility]) Vital Signs (Past 12 Hours) Vital Signs Temp Pulse Pulse Resp BP BP Pulse Ox 12/07/21 11:13 36.8 C 67 16 104/61 92 12/07/21 07:36 67 12/07/21 06:43 36.7 C 69 18 121/66 92 12/07/21 03:01 37.0 C 81 18 124/69 96 PG Care Time/CCT Total # of Minutes Spent Total Time Spent with Patient: Total time spent is greater than 50% in coordination of care (as documented) at patient's floor/unit and/or counseling patient: Coding Level of Care Code 20283 Subseq Hosp Care Lvl 2 Diagnoses Pneumonia J18.9 Hypothyroidism E03.9 CKD (chronic kidney disease) stage 3, GFR 30-59 ml/min N18.30 Breast cancer, right C50.911 Hyponatremia E87.1 Atrial flutter I48.92
[2021-12-08] MEDS: LEVOTHYROXINE SODIUM 25 MCG TABLET PO SCH (05:42)
--- NOTE | 2021-12-08 07:25 | Hospitalist Progress Note ---
Date of Service December 08, 2021 Assessment & Plan (1) Pneumonia: Plan: CT-C: Dense airspace consolidation of the left greater than right lower lobes with additional scattered opacities of the upper lobes and lingula. Findings are suggestive of multifocal pneumonia. 11/15/2021: Positive rhinovirus/enterovirus Suspected atypical pneumonia versus gram-negative HCAP Patient initially treated with cefepime/azithromycin but developed rash, was converted to Levaquin Tolerating Levaquin well since 12/04, will complete 5-7-day course (until 12/09- 12/2011) PCT elevated on admission and down trended Lactic acid normal on admit Patient continues to feel fatigued and weak in ADLs. Was seen by PT/OT who recommend return home, patient reports she cannot cook/shop/function on her own at this time. Her son is flying out to [place] to help care for her, flight lands late 12/08 evening and will be able to set up a safe environment by 12/09. (2) Hypothyroidism: Plan: Continue levothyroxine, last check 11/19 (3) CKD (chronic kidney disease) stage 3, GFR 30-59 ml/min: Plan: creatinine appears at baseline (4) Breast cancer, right: Plan: History noted. 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 maintained on metoprolol Patient on apixaban. 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 Would like this done, okay to do this while inpatient. Patient is not having spinning while sitting in bed, but does have intermittent vertiginous symptoms when turning her head throughout the day. Does not wish to try meclizine does not want to be sleepy and wants to minimize medications. Also with some sinus congestion likely due to allergic rhinitis, patient reports she does not tolerate Flonase as it makes her sick but does well with Claritin. We will start daily Claritin. No ear pain. apixiban for dvt prevention See above, son arriving in [place] to help set up home as safe environment for patient to be discharged Admission and Anticipated Discharge Date Admission Date: December 01, 2021 Subjective Feels congested today, and like she has bad allergies for which she normally takes Claritin. Does induce some off-balance when turning consistent with her prior BPPV, did not have Cameron yesterday but would like this done no spinning at time of assessment. Does have some ear pressure/sinus pressure consistent with allergies as well. Has not tolerated Flonase in the past, reports it makes her very sick but would like to try some Claritin. Denies chest pain, chest pressure, shortness of breath, difficulty breathing. Reports son is getting in late tonight and will have help to care for her at home in the morning Review of Systems Review of Systems: All systems reviewed & are unremarkable except as noted in Subjective Physical Exam Physical Exam: General: A&Ox3. NAD. Cooperative. HEENT: Atraumatic, normocephalic. Vision and hearing grossly intact, Although extremely hard of hearing Pulm: Diffusely coarse with moderate air movement and symmetrical chest rise. No increase in work of breathing. No respiratory distress. Cardiac: RRR, -mrg. Radial pulses intact and symmetrical. Abdominal: Nontender, nondistended, soft. BS present. Results & Data Results & Data ([facility]) Vital Signs (Past 12 Hours) Vital Signs Temp Pulse Pulse Resp BP Pulse Ox 12/08/21 07:14 61 12/08/21 06:39 36.9 C 63 18 115/60 93 12/08/21 02:58 36.9 C 64 18 105/65 95 12/08/21 00:00 65 12/07/21 23:20 37.1 C 65 18 116/60 95 PG Care Time/CCT Total # of Minutes Spent Total Time Spent with Patient: Total time spent is greater than 50% in coordination of care (as documented) at patient's floor/unit and/or counseling patient: Coding Level of Care Code 90215 Subseq Hosp Care Lvl 1 Diagnoses Pneumonia J18.9 Hypothyroidism E03.9 CKD (chronic kidney disease) stage 3, GFR 30-59 ml/min N18.30 Breast cancer, right C50.911 Hyponatremia E87.1 Atrial flutter I48.92
[2021-12-08 08:49] LABS: Basophils # (auto) 0.02 K/uL (0-0.2); Basophils % (auto) 0.3 %; Eosinophils % (auto) 5.1 %; Hematocrit (blood only) 32.9 % (37-47); Hemoglobin 11.1 g/dL (12.0-16.0); Immature Granulocytes % (auto) 1.7 %; Lymphocytes # (auto) 1.81 K/uL (1.2-3.4); Lymphocytes % (auto) 30.5 %; Mean Corpuscular Hemoglobin 30.3 pg (25-34); Mean Corpuscular Hgb Conc 33.7 g/dL (32-36); Mean Corpuscular Volume 89.9 fL (80-100); Monocytes # (auto) 0.56 K/uL (0.11-0.59); Monocytes % (auto) 9.4 %; Neutrophils # (auto) 3.15 K/uL (1.4-6.5); Platelet Count 356 K/uL (130-400); RDW Coefficient of Variation 14.1 % (11.5-14.5); RDW Standard Deviation 46.6 fL (36.4-46.3); Red Blood Count 3.66 M/uL (4.2-5.4); White Blood Count 5.94 K/uL (4.8-10.8)
[2021-12-08] MEDS: ASCORBIC ACID 500 MG TAB PO SCH (08:53)
[2021-12-08] MEDS: APIXABAN 2.5 MG TAB PO SCH ×2 (08:53→19:43)
[2021-12-08] MEDS: guaiFENesin 600 MG TABCR PO SCH ×2 (09:04→19:43)
[2021-12-08 09:05] LABS: Albumin Globulin Ratio 0.9 (0.9-2); Albumin Level 2.9 gm/dl (3.4-5.0); BUN Creatinine Ratio 11.1 (10-20); Bilirubin,Total 0.4 mg/dl (0.2-1.0); Calcium 8.6 mg/dl (8.5-10.1); Creatinine Clr Calc Pharmacy 40.2 ml/min; Est GFR (African American) 76.8 ml/min; Est GFR (Non-African American) 66.2 ml/min; Globulin 3.1 gm/dl (2.5-4.0); Potassium 4.2 mmol/L (3.5-5.1)
[2021-12-08] MEDS: levoFLOXacin 750 MG TAB PO SCH (11:57)
[2021-12-08] MEDS ORDERED: LORATADINE 10 MG TAB PO ONE ×2 (14:30→14:45)
[2021-12-09 06:29] LABS: Basophils # (auto) 0.03 K/uL (0-0.2); Basophils % (auto) 0.6 %; Eosinophils # (auto) 0.21 K/uL (0-0.5); Hematocrit (blood only) 33.3 % (37-47); Immature Granulocytes # (auto) 0.09 K/uL (0.00-0.02); Immature Granulocytes % (auto) 1.7 %; Lymphocytes # (auto) 1.64 K/uL (1.2-3.4); Lymphocytes % (auto) 31.3 %; Mean Corpuscular Hemoglobin 29.4 pg (25-34); Mean Platelet Volume 9.9 fL (7.4-10.4); Monocytes # (auto) 0.46 K/uL (0.11-0.59); Monocytes % (auto) 8.8 %; Neutrophils # (auto) 2.81 K/uL (1.4-6.5); Neutrophils % (auto) 53.6 %; Platelet Count 324 K/uL (130-400); RDW Coefficient of Variation 14.1 % (11.5-14.5); Red Blood Count 3.74 M/uL (4.2-5.4); White Blood Count 5.24 K/uL (4.8-10.8)
[2021-12-09] MEDS: LEVOTHYROXINE SODIUM 25 MCG TABLET PO SCH (06:34)
[2021-12-09 06:39] LABS: BUN Creatinine Ratio 13.3 (10-20); Calcium 8.4 mg/dl (8.5-10.1); Creatinine Clr Calc Pharmacy 39.2 ml/min; Est GFR (African American) 74.5 ml/min; Est GFR (Non-African American) 64.3 ml/min; Potassium 4.2 mmol/L (3.5-5.1)
[2021-12-09] MEDS: APIXABAN 2.5 MG TAB PO SCH (08:31)
[2021-12-09] MEDS: TOCOPHERYL, DL-ALPHA 400 UNITS 180 MG CAP PO SCH (08:33)
[2021-12-09] MEDS: guaiFENesin 600 MG TABCR PO SCH (08:33)
[2021-12-09] MEDS: CHOLECALCIFEROL 1,000 UNITS 25 MCG TAB PO SCH (08:34)
[2021-12-09] MEDS: ASCORBIC ACID 500 MG TAB PO SCH (08:34)
[2021-12-09] MEDS ORDERED: LORATADINE 10 MG TAB PO SCH ×2 (09:00)
--- NOTE | 2021-12-09 12:08 | Discharge Summary ---
Date of Service December 09, 2021 Admission HPI Per Admitting Provider 86 yo female with PMG described below presented to the E with 2 weeks of worsening SOB accompanied by SOB. The patient reports she was diagnosed with rhinovirus in early October. Including today, she has returned 3x to the ER. She reports no significant improvement. Patient reports her SOB now occurs even at rest, which brought her to the ER. Patient is hard of hearing. She states she has had a decreased appetite during this time. Principal Diagnosis Multifocal pneumonia Discharge Exam General: A&Ox3. NAD. Cooperative. HEENT: Atraumatic, normocephalic. Trace cerumen in the ear canals bilaterally but TMs visible bilaterally. Trace serous fluid bilaterally without injection/erythema/exudate. Pulm: No rales, coarse at the bases which improves with deep breathing and cough. Symmetrical chest rise. No increase in work of breathing. No respiratory distress. Cardiac: RRR, -mrg. Radial pulses intact and symmetrical. Abdominal: Nontender, nondistended, soft. BS present. Discharge Data Allergies Allergy/AdvReac Type Severity Reaction Status Date / Time tetracycline Allergy Mild RASH? Verified 12/01/21 16:52 cefepime Allergy Rash Verified 12/05/21 12:47 tamoxifen AdvReac Severe Diarrhea Verified 12/01/21 16:52 Ordered Studies 12/01/21 13:39 CT angio chest PE protocol Stat Hospital Course (1) Pneumonia: Marina is an 86-year-old female who had rhinovirus/enterovirus 11/15/2021 who presents with shortness of breath and weakness and was found to have multifocal pneumonia on CT. She was treated with cefepime/at this Romycin but was converted to Levaquin due to allergic rash. She clinically improved and was titrated to room air on this regimen. Recommended for discharge home with PT/OT, her son flew to [place] to help care for her while she recovers. She does have a history of maxillary sinus impaired drainage with nasal polyps for which she has declined surgery in the past. She does have a history of BPPV which improves with Cameron, she did experience congestion symptoms and worsened hearing with her sinus congestion. Refuses Flonase as she does not like the sm ell/taste and feels it makes her sick, will try cetirizine or Zyrtec to help improve and follow-up with her provider as outpatient. Otoscopic exam did not show evidence of either infection or TM damage. To do as outpatient: 1. Complete renally adjusted Levaquin course with 1 additional dose of levofloxacin 750 mg on 12/11/2021 2. Routine follow-up to PCP 3. Routine follow-up for A. fib with cardiology. She has a history of paroxysmal A. fib and did not have poor control during admission, but wishes follows with a bore mill operator for plastic to follow as outpatient. She was in sinus during admission. Inpatient cardiology consultation was not required, outpatient referral was placed on discharge 4. CT-C: Dense airspace consolidation of the left greater than right lower lobes with additional scattered opacities of the upper lobes and lingula. Findings are suggestive of multifocal pneumonia. 11/15/2021: Positive rhinovirus/enterovirus Suspected atypical pneumonia versus gram-negative HCAP Patient initially treated with cefepime/azithromycin but developed rash, was converted to Levaquin Tolerating Levaquin well since 12/04, will complete7-day course (12/11) PCT elevated on admission and down trended Lactic acid normal on admit Patient continues to feel fatigued and weak in ADLs. Was seen by PT/OT who recommend return home, patient reports she cannot cook/shop/function on her own at this time. Her son is flying out to [place] to help care for her, flight lands late 12/08 evening and will be able to set up a safe environment by 12/09. (2) Hypothyroidism: Continue levothyroxine, last check 11/19 (3) CKD (chronic kidney disease) stage 3, GFR 30-59 ml/min: creatinine appears at baseline (4) Breast cancer, right: History noted. 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 maintained on metoprolol Patient on apixaban. 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 Would like this done, okay to do this while inpatient. Patient is not having spinning while sitting in bed, but does have intermittent vertiginous symptoms when turning her head throughout the day. Does not wish to try meclizine does not want to be sleepy and wants to minimize medications. Did well with Cameron morning of 12/09. Also with some sinus congestion likely due to allergic rhinitis, patient reports she does not tolerate Flonase as it makes her sick but does well with Claritin. Have a history of nasal polyps and impaired sinus drainage continue Claritin, discussed with patient she may trial Zyrtec if that works better for her as outpatient apixiban for dvt prevention Total Time Total Time Spent Total Time Spent (In Minutes): Time spend day of discharge 50 minutes including direct patient care, documentation, review of labs and images, and coordination of care. Discharge Plan Discharge Items Patient Disposition: Home - Self-Care Reason For Visit: MULTIFOCAL PNEUMONIA Discharge Diagnosis: Multifocal pneumonia Activity: Resume your previous activity Non-emergency contact: Primary Care Provider Call non-emergency contact if: you have any medication questions and your symptoms worsen Follow-up/Referrals: Torsten Ayon MD [Physician] - (Afib followup, on DOAC) Blanca Prado MD [Primary Care Provider] - Diet: Regular Addtl Attending Provider Instructions: You were seen in the hospital for multifocal pneumonia. You are treated with antibiotics and clinically improved. He did have some balance trouble with a history of vertigo, you are seen by physical therapy and your strength was good and rehab was not recommended. Your son has traveled out to help care for you while you recover and you are being discharged home. Due to a reaction to cefepime/azithromycin (antibiotics) you were converted to a different antibiotic called Levaquin. Please take one dose of levofloxacin 750mg on 12/12/2011. If you develop any new or worsening symptoms including fever, chills, sweats, chest pain, chest pressure, difficulty breathing, uncontrolled nausea/vomiting, rash, wheezing, passing out or nearly passing out, bleeding, black/bloody bowel movements, or other new or concerning symptoms please call your primary care physician, or call 911 for re-evaluation in the emergency department if you are very concerned. Pending Studies at Discharge: No Stand-Alone Forms: in2apps, Smoking Cessation Medications and DC Order Prescriptions: New levofloxacin 750 mg tablet 750 mg PO ONCE Qty: 1 RF: 0 Continued levothyroxine 25 mcg tablet 25 mcg PO DAILY Qty: 90 RF: 3 vitamin A palmitate 10,000 unit Tablet 10,000 unit PO DAILY RF: 0 ascorbic acid (vitamin C) [Vitamin C] 500 mg Tablet 500 mg PO QAM RF: 0 vitamin E 400 unit Capsule 400 unit PO 3XWK RF: 0 cholecalciferol (vitamin D3) [Vitamin D3] 25 mcg (1,000 unit) Capsule 25 mcg PO 3XWK RF: 0 zinc gluconate 30 mg Tablet 30 mg PO DAILY RF: 0 magnesium citrate 100 mg Capsule 100 mg PO DAILY PRN (Reason: LEG CRAMPS) RF: 0 metoprolol succinate 50 mg Tablet Extended Release 24 Hr 50 mg PO QAM 30 Days Qty: 30 RF: 0 Eliquis 2.5 mg Tablet 2.5 mg PO BID 30 Days Qty: 60 RF: 0 Discharge Orders: Discharge Order (Routine); Ordered 12/09/21 Ordered By: Merlin Sonw Admission Data Admit Date/Time: 12/01/21 17:23 Attending Provider: Merlin Snow Admit Provider: Erik Navarro Primary Care Provider: Blanca Prado Other Providers: [facility] Coding Level of Care Code D/C DAY MANAGEMENT >30 MINS Diagnoses Pneumonia J18.9 Hypothyroidism E03.9 CKD (chronic kidney disease) stage 3, GFR 30-59 ml/min N18.30 Breast cancer, right C50.911 Hyponatremia E87.1 Atrial flutter I48.92
== END 2021-12-09 13:19 | disposition home health service (06) | DRG 178 ==
LOC: ED 13:06 → SUATTDRO 17:23 → 2N 17:23

== ENCOUNTER 2023-10-08 21:37 | Inpatient (IN) ==
[2023-10-08 22:34] LABS: Basophils # (auto) 0.02 K/uL (0.00-0.20); Basophils % (auto) 0.4 %; Eosinophils # (auto) 0.14 K/uL (0.00-0.50); Eosinophils % (auto) 2.7 %; Hematocrit (blood only) 38.4 % (37.0-47.0); Hemoglobin 12.7 g/dl (12.0-16.0); Lymphocytes # (auto) 2.04 K/uL (1.20-3.40); Lymphocytes % (auto) 39.9 %; Mean Corpuscular Hemoglobin 29.7 pg (25.0-34.0); Mean Corpuscular Hgb Conc 33.1 g/dL (32.0-36.0); Mean Corpuscular Volume 89.7 fL (80.0-100.0); Mean Platelet Volume 10.4 fL (9.4-12.4); Monocytes # (auto) 0.42 K/uL (0.11-0.59); Monocytes % (auto) 8.2 %; Neutrophils # (auto) 2.49 K/uL (1.40-6.50); Neutrophils % (auto) 48.8 %; Platelet Count 139 K/uL (130-400); RDW Coefficient of Variation 13.1 % (11.5-14.5); RDW Standard Deviation 42.6 fL (36.4-46.3); Red Blood Count 4.28 M/uL (4.20-5.40); White Blood Count 5.11 K/ul (4.8-10.8)
[2023-10-08 22:51] LABS: Albumin Globulin Ratio 1.8 (0.9-2); Albumin Level 4.1 gm/dl (3.4-5.0); BUN Creatinine Ratio 23.3 (10-20); Bilirubin,Total 0.3 mg/dl (0.2-1.0); Calcium 8.9 mg/dl (8.6-10.3); Est GFR (Non-African American) 49.2 ml/min; Globulin 2.3 gm/dl (2.5-4.0); Potassium 4.1 mmol/L (3.5-5.1); Total Protein 6.4 gm/dl (6.0-8.3)
[2023-10-08 22:57] LABS: Troponin I High Sensitivity 8.4 pg/ml (0-14)
[2023-10-08 23:14] LABS: Magnesium 1.9 mg/dl (1.7-2.4)
[2023-10-08 23:17] LABS: INR 0.9 (0.9-1.1); Partial Thromboplastin Ratio 1.1; Partial Thromboplastin Time 30 Seconds (21-31); Prothrombin Time 10.4 Seconds (9.0-12.0)
--- NOTE | 2023-10-08 23:52 | Emergency Department Note ---
Impression & Plan Atrial fibrillation with rapid ventricular response, Palpitations, Jaw pain, Hyponatremia ED Provider Note NAME: SHASHI KOROMA AGE: 87 SEX: F : 1935 ARRIVES VIA: Walk-In INFORMANT: [Patient] ED PROVIDER(S): [Junior Parker MD] CHIEF COMPLAINT: Cardiac assessment HISTORY OF PRESENT ILLNESS: Patient is an 87-year-old female who presents to the ER with palpitations and some jaw pain. This began at around 8:20 p.m. or so this evening, about 3 hours ago. The jaw pain only lasted for few minutes. The palpitations have continued. The patient states that she took an extra dose of metoprolol, 12.5 mg. She had already taken her morning dose of metoprolol. She states that things really have not changed. She is not short of breath. She does not have chest pain. She does carry a history of A-fib and does take Eliquis twice a day for the A-fib. There has been no cough or cold or congestion. No vomiting or abdominal pain. PMHx/PSHx/Social Hx: See Below PHYSICAL EXAM: GENERAL: Patient is in no acute distress. HEENT: No acute trauma, normocephalic atraumatic, mucous membranes moist, no nasal congestion. NECK: No stridor, no adenopathy, no meningismus, trachea is midline. LUNGS: Clear to auscultation bilaterally, no wheeze, no rhonchi, breath sounds equal. HEART: Irregular rhythm, mildly tachycardic, no obvious murmur. ABDOMEN: Soft, nontender, no peritonitis. EXTREMITIES: No cyanosis, full range of motion of all the joints without pain or difficulty. NEUROLOGIC: Oriented x 3, no acute motor or sensory deficits, no focal weakness. SKIN: No jaundice, no diaphoresis. DIFFERENTIAL DIAGNOSIS: A-fib, a flutter, SVT, electrolyte imbalance, anemia, dehydration, cardiac ischemia, among others. EMERGENCY DEPARTMENT PROCEDURES: MEDICAL DECISION MAKING: There is no leukocytosis or concerning anemia. There is a normal platelet count. No coagulopathy. Sodium is somewhat low at 130 however, the patient carries a history of hyponatremia. There was no significant liver enzyme elevation. No evidence for renal failure. ECG showed a rapid atrial fibrillation without acute ischemia. Cardiac enzyme testing x 1 did not show findings of acute cardiac ischemia. Chest x-ray does not show pneumonia, pneumothorax or mediastinal widening. On exam, patient was tachycardic but resting comfortably. The patient was given a 500 cc saline bolus. She received oral metoprolol tartrate, 12.5 mg. She received 2.5 mg of IV Lopressor. With the above treatment, the patient's heart rate is now nicely controlled, she seems comfortable. She remains in A-fib. The patient is in need of a hospital stay for her rapid A-fib. She may need some medication adjustment. She requires troponin trending given her jaw pain described earlier. I did speak with the patient and case management, the on- call hospitalist was consulted. Prior/Outside records/notes reviewed: None ECG per my interpretation: Indication was palpitations. The ECG shows atrial fibrillation with a rapid rate at 118. There is some nonspecific ST change. There is no ST elevation, no PVCs. The QTc is 420. Continuous Cardiac Monitoring per my interpretation: An order was placed for continuous cardiac monitoring. The monitor shows a rate of 122 with atrial fibrillation. Imaging/x-ray results per my interpretation: Chest x-ray does not show mediastinal widening, pneumonia or pneumothorax. Chronic Medical/Social conditions affecting care: Advanced age. Care/Management discussed with: Case management and the on-call hospitalist. Level of care consideration(s): After review of the information above and other included data: --I believe the patient requires escalation of care to admission DISPOSITION: Admission Past Med/Surg History Medical History Atrial flutter Tachyarrhythmia CKD (chronic kidney disease) stage 3, GFR 30-59 ml/min Osteoarthritis Cataract Leg pain, left hx calf, tx therapy, healed "in 3 years" History of breast cancer Right side, "WLE", stage 1 cancer, declined chemo/radiation, monitored with mamogram and cbc Abnormal finding on mammography Asymptomatic menopausal state Elevated blood pressure reading without diagnosis of hypertension Dizziness "recurrent viral infection undiagnosed, only every few years" Surgical History History of bilateral tubal ligation History of cataract surgery History of lumpectomy of right breast History of nephrectomy History of tonsillectomy Family History Mother Cancer Father Prostate cancer Denies family history of Ovarian cancer Myocardial infarction Breast cancer Colorectal cancer Social History Smoking Status: Never smoker Second Hand Exposure: No; Do You Dip or Chew Tobacco: No; Hx Alcohol Use: Yes Alcohol type: wine Hx Substance Use: No Preferred Language: Cook Islander Communication Ability: Impaired Visual Impairment: No Limitations Hearing Ability: Normal [employer] Required: No Beliefs That Will Affect Care: None marital status: / Current Living Situation: Alone current occupational status: retired Feels Safe at Home: Yes Childhood Exposure to Second-Hand Smoke: Yes Diet: regular Diet Comment: regular Dental Care, Regularly: Yes Physical Activity Frequency: Daily Seatbelt Use: always Sunscreen Use: Yes Assistive Devices: Glasses Allergies Allergies Allergy/AdvReac Type Severity Reaction Status Date / Time tetracycline Allergy Mild RASH? Verified 05/22/23 13:03 cefepime Allergy Rash Verified 05/22/23 13:03 tamoxifen AdvReac Severe Diarrhea Verified 05/22/23 13:03 Home Meds Home Medications Medication Instructions Recorded Confirmed magnesium citrate 100 mg capsule 100 mg PO DAILY PRN LEG CRAMPS 11/15/21 05/22/23 calcium citrate 200 mg (950 mg) 200 mg PO DAILY PRN 09/19/22 05/22/23 tablet apixaban 2.5 mg tablet (Eliquis) 2.5 mg PO BID 12/28/22 05/22/23 metoprolol succinate 25 mg 12.5 mg PO DAILY 12/28/22 05/22/23 tablet,extended release 24 hr Previous Rx's Medication Instructions Recorded levothyroxine 25 mcg tablet 25 mcg PO DAILY #90 tabs 11/17/22 Results & Data (ED) Vital Signs Vital Signs - 24 hr 10/08/23 21:51 10/08/23 22:32 10/08/23 22:32 Temperature 36.6 C Temperature Source Temporal Artery Scan Pulse Rate 128 H 117 H 113 H Pulse Rate from SpO2 Sensor 105 H Pulse Rhythm Regular Pulse Strength Normal Respiratory Rate 18 15 Respiratory Effort / Characteristics Non-Labored Spontaneous Respiratory Depth Normal Respiratory Pattern Regular Blood Pressure 159/65 H 152/117 H Blood Pressure Mean 96 128 Blood Pressure Position Sitting Pulse Oximetry 98 94 Oxygen Delivery Method Room Air Room Air Sepsis Recent Fever Within 48 Hours No Sepsis New/Unexplained Change in Mental Status N/A Sepsis Action Taken by Nursing No Action Required 10/08/23 23:00 10/08/23 23:31 10/09/23 00:00 Temperature Temperature Source Pulse Rate 105 H 96 H 99 H Pulse Rate from SpO2 Sensor 123 H Pulse Rhythm Pulse Strength Respiratory Rate 18 30 H 13 Respiratory Effort / Characteristics Respiratory Depth Respiratory Pattern Blood Pressure 107/87 133/102 H 139/98 Blood Pressure Mean 93 112 111 Blood Pressure Position Pulse Oximetry 95 94 95 Oxygen Delivery Method Room Air Sepsis Recent Fever Within 48 Hours Sepsis New/Unexplained Change in Mental Status Sepsis Action Taken by Nursing 10/09/23 00:21 10/09/23 00:23 10/09/23 00:31 Temperature Temperature Source Pulse Rate 116 H 98 H Pulse Rate from SpO2 Sensor 125 H Pulse Rhythm Pulse Strength Respiratory Rate 17 Respiratory Effort / Characteristics Respiratory Depth Respiratory Pattern Blood Pressure 169/116 H 169/116 H 157/112 H Blood Pressure Mean 133 127 Blood Pressure Position Pulse Oximetry 95 93 Oxygen Delivery Method Sepsis Recent Fever Within 48 Hours Sepsis New/Unexplained Change in Mental Status Sepsis Action Taken by Nursing 10/09/23 00:46 10/09/23 00:46 10/09/23 01:00 Temperature Temperature Source Pulse Rate 93 H 84 Pulse Rate from SpO2 Sensor Pulse Rhythm Pulse Strength Respiratory Rate 22 16 Respiratory Effort / Characteristics Respiratory Depth Respiratory Pattern Blood Pressure 162/118 H Blood Pressure Mean 121 Blood Pressure Position Pulse Oximetry Oxygen Delivery Method Sepsis Recent Fever Within 48 Hours Sepsis New/Unexplained Change in Mental Status Sepsis Action Taken by Nursing 10/09/23 01:00 10/09/23 01:15 10/09/23 01:15 Temperature Temperature Source Pulse Rate 108 H Pulse Rate from SpO2 Sensor 106 H Pulse Rhythm Pulse Strength Respiratory Rate 15 Respiratory Effort / Characteristics Respiratory Depth Respiratory Pattern Blood Pressure 143/89 H 149/86 H Blood Pressure Mean 92 103 Blood Pressure Position Pulse Oximetry 96 Oxygen Delivery Method Sepsis Recent Fever Within 48 Hours Sepsis New/Unexplained Change in Mental Status Sepsis Action Taken by Usp Medications Current Medication List: was personally reviewed by me Laboratory Data Attestation: I reviewed the patient's lab results. 10/08/23 22:22 10/08/23 22:22 Lab Results 10/08/23 10/09/23 Range/Units 22:22 01:30 WBC 5.11 (4.8-10.8) K/ul RBC 4.28 (4.20-5.40) M/uL Hgb 12.7 (12.0-16.0) g/dl Hct 38.4 (37.0-47.0) % MCV 89.7 (80.0-100.0) fL MCH 29.7 (25.0-34.0) pg MCHC 33.1 (32.0-36.0) g/dL RDW Std Deviation 42.6 (36.4-46.3) fL RDW Coeff of Moose 13.1 (11.5-14.5) % Plt Count 139 (130-400) K/uL MPV 10.4 (9.4-12.4) fL Immature Gran % (Auto) 0.0 % Neut % (Auto) 48.8 % Lymph % (Auto) 39.9 % Emery % (Auto) 8.2 % Eos % (Auto) 2.7 % Baso % (Auto) 0.4 % Neut # (Auto) 2.49 (1.40-6.50) K/uL Lymph # (Auto) 2.04 (1.20-3.40) K/uL Emery # (Auto) 0.42 (0.11-0.59) K/uL Eos # (Auto) 0.14 (0.00-0.50) K/uL Baso # (Auto) 0.02 (0.00-0.20) K/uL Immature Gran # (Auto) 0.00 L (0.01-0.20) K/uL PT 10.4 (9.0-12.0) Seconds INR 0.9 (0.9-1.1) APTT 30 (21-31) Seconds PTT Ratio 1.1 Sodium 130 L (136-145) mmol/L Potassium 4.1 (3.5-5.1) mmol/L Chloride 101 (98-107) mmol/L Carbon Dioxide 24 (21-32) mmol/L Anion Gap 5 (3-11) BUN 24 H (6-23) mg/dl Creatinine 1.03 (0.6-1.2) mg/dl Est Cr Clr Drug Dosing 31.0 ml/min Est GFR ( Amer) 57.0 ml/min Est GFR (Non-Af Amer) 49.2 ml/min BUN/Creatinine Ratio 23.3 H (10-20) Glucose 102 H (70-99(Fasting)) mg/dl Calcium 8.9 (8.6-10.3) mg/dl Magnesium 1.9 (1.7-2.4) mg/dl Total Bilirubin 0.3 (0.2-1.0) mg/dl AST 17 (13-39) U/L ALT 11 (7-52) U/L Alkaline Phosphatase 75 (34-104) U/L Troponin I High Sens 8.4 11.3 (0-14) pg/ml Total Protein 6.4 (6.0-8.3) gm/dl Albumin 4.1 (3.4-5.0) gm/dl Globulin 2.3 L (2.5-4.0) gm/dl Albumin/Globulin Ratio 1.8 (0.9-2) Administered Medications Discontinued Medications Sodium Chloride (Nss) 500 mls @ 999 mls/hr IV .Q31M ONE Stop: 10/08/23 23:43 Last Infusion: 10/09/23 01:31 Dose: Infused Documented By: Admin: 10/09/23 00:38 Dose: 999 mls/hr Documented By: ADRIENNE Metoprolol Tartrate (Metoprolol Tartrate 1 Mg/Ml Vial) Confirm Administered Dose 5 mg IV .STK-MED ONE Stop: 10/09/23 00:20 Last Admin: 10/09/23 00:21 Dose: 2.5 mg Documented By: ADRIENNE Metoprolol Tartrate (Metoprolol Tartrate 1 Mg/Ml Vial) 2.5 mg IV NOW STA Stop: 10/08/23 23:14 Last Admin: 10/09/23 00:38 Dose: Not Given Documented By: ADRIENNE Metoprolol Tartrate (Metoprolol Tartrate 25 Mg Tab) 12.5 mg PO NOW STA Stop: 10/08/23 23:14 Last Admin: 10/09/23 00:38 Dose: 12.5 mg Documented By: ADRIENNE Discharge Plan Visit Data Chief Complaint: Cardiac Assessment Stated Complaint: A-FIB, ARRYTHMIA/PALPITATIONS ED Provider: Junior Parker Discharge Problem: Atrial fibrillation with rapid ventricular response, Palpitations, Jaw pain, Hyponatremia Patient Disposition: Admitted As Inpatient Condition: Fair Forms Stand Alone Forms: My [facility] Prescriptions Prescriptions: No Action levothyroxine 25 mcg tablet 25 mcg PO DAILY Qty: 90 3RF calcium citrate 200 mg (950 mg) tablet 200 mg PO DAILY PRN Eliquis 2.5 mg tablet 2.5 mg PO BID metoprolol succinate 25 mg tablet extended release 24 hr 12.5 mg PO DAILY magnesium citrate 100 mg Capsule 100 mg PO DAILY PRN (Reason: LEG CRAMPS) Referrals Referrals: Blanca Prado MD [Primary Care Provider] -
[2023-10-09] MEDS: METOPROLOL TARTRATE 1 MG/ML VIAL IV ONE (00:21)
--- NOTE | 2023-10-09 00:34 | History & Physical Report ---
Date of Service October 09, 2023 Assessment & Plan (1) Atrial fibrillation: Plan: Pt is a 87 yo female with PMH of afib on anti-coagulation, hx of breast cancer (no chemo/radiation), HTN, CKD, hypothyroidism, and osteoarthritis presenting due to heart racing. Afib - lab work significant for CBC WNL, electrolytes WNL, Cr 1.03, trop 8.4 - EKG upon admission showed afib w/ RVR to 110s/120s; CXR WNL - will check another trop d/t timing of onset of her symptoms; however, do not suspect ACS d/t chronicity and reproducible symptoms - s/p metoprolol 12.5mg PO (home dose), metoprolol 5mg IV in the ER - will continue to monitor rhythm and HR - pt may benefit from increased home metoprolol dosing; however, she does note that at home her BPs are typically on the lower side and cardio report from 07/2023 makes note of bradycardia; it is also possible that this current breakthrough episode is moreso related to the timing/missed dose of her metoprolol; to prevent this from happening in the future, pt may benefit from taking metoprolol at same time everyday rather than increasing the dose - trend BMP, mag and replete PRN Hypothyroidism - continue home levo - will check TSH with AM labs to make sure not over treating and contributing to her afib Diet: regular VTE ppx: home eliquis 2.5 mg BID Code: full Dispo: med/tele (2) Hypothyroidism: History of Present Illness Chief Complaint: heart racing, hx of afib Primary Care Provider: Blanca Prado MD Pt is a 87 yo female with PMH of afib on anti-coagulation, hx of breast cancer (s/p surgical removal, no chemo/radiation), HTN, CKD, hypothyroidism, and osteoarthritis presenting due to heart racing. Pt states she started having heart palpitations and jaw pain last night ~8PM. She states this is typical for her episodes of afib- she feels heart palpitations and has jaw pain that lasts a few minutes. She states prior to starting metoprolol for her afib, she would have episodes lasting 2 hrs every 2- 3 weeks. After being on metoprolol, her episodes have decreased in frequency to every 2-3 mths. She did have one episode of afib that lasted 14 hrs which is abnormal for her. Pt says she did miss/delay her metoprolol dose this morning. She typically takes it in the morning but yesterday at lunch she noticed that she hadn't taken it yet. In the ER, pt was given 1L NS, metoprolol 12.5 mg PO, and metoprolol 5mg IV. Allergies Allergy/AdvReac Type Severity Reaction Status Date / Time tetracycline Allergy Mild RASH? Verified 10/09/23 11:27 cefepime Allergy Rash Verified 10/09/23 11:27 tamoxifen AdvReac Severe Diarrhea Verified 10/09/23 11:27 Home Medications Medication Instructions Recorded Confirmed Type magnesium citrate 100 mg capsule 100 mg PO DAILY PRN LEG CRAMPS 11/15/21 10/11/23 History levothyroxine 25 mcg tablet 25 mcg PO DAILY #90 tabs 11/17/22 10/11/23 Rx apixaban 2.5 mg tablet (Eliquis) 2.5 mg PO BID 12/28/22 10/11/23 History metoprolol succinate 25 mg 12.5 mg PO DAILY 12/28/22 10/11/23 History tablet,extended release 24 hr vit C-vit [id number] 1 cap PO QDL 10/09/23 10/11/23 History 3 100 mg-15 unit-2 mg-100 mg capsule zinc 50 mg capsule 50 mg PO Q OTHER DAY 10/09/23 10/11/23 History calcium citrate 200 mg (950 mg) 200 mg PO DAILY PRN Takes 10/11/23 10/11/23 History tablet Magnesium cholecalciferol (vitamin D3) 50 50 mcg PO DAILY 10/11/23 10/11/23 History mcg (2,000 unit) capsule Past Med/Surg History Medical History Atrial flutter Tachyarrhythmia CKD (chronic kidney disease) stage 3, GFR 30-59 ml/min Osteoarthritis Cataract Leg pain, left hx calf, tx therapy, healed "in 3 years" History of breast cancer Right side, "WLE", stage 1 cancer, declined chemo/radiation, monitored with mamogram and cbc Abnormal finding on mammography Asymptomatic menopausal state Elevated blood pressure reading without diagnosis of hypertension Dizziness "recurrent viral infection undiagnosed, only every few years" Surgical History History of bilateral tubal ligation History of cataract surgery History of lumpectomy of right breast History of nephrectomy History of tonsillectomy Family History Mother Cancer Father Prostate cancer Denies family history of Ovarian cancer Myocardial infarction Breast cancer Colorectal cancer Social History Smoking Status: Never smoker Second Hand Exposure: No; Do You Dip or Chew Tobacco: No; Hx Alcohol Use: No Hx Substance Use: No Preferred Language: Tajik Communication Ability: Effective Visual Impairment: No Limitations Hearing Ability: Normal Vegetable Tier Required: No Beliefs That Will Affect Care: None marital status: / Current Living Situation: Alone current occupational status: retired Other Information That Helps Us Care for You: No Feels Safe at Home: Yes Safety Concerns: Feels Safe At This Time Childhood Exposure to Second-Hand Smoke: Yes Diet: regular Diet Comment: regular Dental Care, Regularly: Yes Physical Activity Frequency: Daily Seatbelt Use: always Sunscreen Use: Yes Assistive Devices: Glasses Review of Systems Review of Systems: As per HPI Physical Exam Constitutional: NAD, vitals WNL. Respiratory: CTA bilaterally. Non labored breathing. No rhonchi, wheezing, or crackles. Cardiovascular: Irregular rhythm, regular rate. No murmurs noted. No LE edema. Gastrointestinal (Abdomen): Nontender, nondistended. No masses noted. Skin: No rashes or skin lesions noted. Neurologic: Sensation grossly intact. No FND appreciated. Psychiatric: Speech of normal pace and content. Mood and affect congruent. Results & Data Results & Data Vital Signs (Past 12 Hours) Vital Signs Temp Pulse Resp BP Pulse Ox O2 Del Method 10/08/23 23:00 105 H 18 107/87 95 Room Air 10/08/23 22:32 113 H 10/08/23 22:32 117 H 15 152/117 H 94 Room Air 10/08/23 21:51 36.6 C 128 H 18 159/65 H 98 Room Air Supervising Physician Co-Signing Physician Notes Patient seen and examined, chart reviewed, case discussed with Dr. Madrigal and I agree with the assessment and plan as above. Patient presenting with AF with RVR No distress, no evidence of failure on exam +S1/S2, irregularly irregular Lungs CTA Labs and images reviewed Electrolytes and troponin WNL Assessment/Plan -Continue PO metoprolol -Monitor Resident Activity Tracking Resident Involvement: Resident Care Provided Care Provided: Adult [facility]
[2023-10-09] MEDS: METOPROLOL TARTRATE 25 MG TAB PO STA (00:38)
[2023-10-09] MEDS: SODIUM CHLORIDE 0.9% 500 ML IV ONE (00:38)
[2023-10-09] MEDS: METOPROLOL TARTRATE 1 MG/ML VIAL IV STA (00:38)
[2023-10-09] MEDS ORDERED: ONDANSETRON INJ 2 MG/ML 2 ML VIAL IV PRN (00:59)
[2023-10-09] MEDS ORDERED: MELATONIN 3 MG TAB PO PRN (00:59)
[2023-10-09] MEDS ORDERED: ACETAMINOPHEN 325 MG TAB PO PRN (00:59)
[2023-10-09] MEDS ORDERED: POLYETHYLENE (MIRALAX) 17 GM PACK PO PRN (00:59)
[2023-10-09] MEDS ORDERED: NON-FORMULARY MEDICATION (Magnesium Citrate 100 mg Capsule) PO PRN (02:47)
[2023-10-09 04:16] LABS: Hematocrit (blood only) 37.3 % (37.0-47.0); Hemoglobin 12.3 g/dl (12.0-16.0); Mean Corpuscular Hemoglobin 29.9 pg (25.0-34.0); Mean Corpuscular Volume 90.5 fL (80.0-100.0); Platelet Count 146 K/uL (130-400); RDW Standard Deviation 42.9 fL (36.4-46.3); Red Blood Count 4.12 M/uL (4.20-5.40); White Blood Count 5.56 K/ul (4.8-10.8)
[2023-10-09 04:21] LABS: BUN Creatinine Ratio 21.4 (10-20); Calcium 8.8 mg/dl (8.6-10.3); Creatinine Clr Calc Pharmacy 32.6 ml/min; Est GFR (African American) 60.5 ml/min; Est GFR (Non-African American) 52.2 ml/min; Magnesium 1.9 mg/dl (1.7-2.4); Potassium 4.2 mmol/L (3.5-5.1)
[2023-10-09 04:34] LABS: Thyroid Stimulating Hormone 3.778 uIu/ml (0.300-4.500)
--- OUTSIDE RECORDS SUMMARY | 2023-10-09 06:50 | External Medical Summary | Summary of Care ---
Author Name Unknown Organization [facility] Address [address] [place] [address] Phone [phone] Care Team Providers Care Fire Management Technician Name Role Phone Blanca Prado MD Primary Care Provide r Reason for Visit * Reason Comments Follow Up Encounter Details Date Type Department Care Team (Late st Contact Info) Description 07/20/2023 2:30 PM EST Office Visit Cardiology, [facility] [address] [facility] [place] [address] Allison Brito PA-C [address] [facility] [place] [address] Paroxysmal atrial fibrillation (HCC)* Allergies Active Allergy Reactions Criticality Noted Date Comments Cefepime Rash High 08/23/2022 documented as of this encounter (statuses as of 07/20/2023) Medications Medication Sig Dispensed Refills Start Date End Date Status Synthroid 25 MCG Oral Tablet Take 1 Tablet by mouth daily first thing in the morning. 0 08/15/2022 Active Ocuvite Adult Formula Oral Capsule Take by mouth. 0 Active Zinc 30 MG Oral Tablet Take by mouth. 0 Active Metoprolol Succinate ER 25 MG Oral Tablet Extended Release 24 Hour (Toprol XL) Take 0.5 Tablets by mouth in the morning. 45 Tablet 3 08/23/2022 Active Apixaban 2.5 MG Oral Tablet (Eliquis) Take 1 Tablet by mouth in the morning and 1 Tablet before bedtime. 180 Tablet 3 08/23/2022 Active Vitamin D 25 MCG (1000 UT) Oral Tablet Take 64 Tablets by mouth once. 0 Active documented as of this encounter (statuses as of 07/20/2023) Active Problems Problem Noted Date Diagnosed Date Paroxysmal atrial fibrillation 01/01/2023 documented as of this encounter (statuses as of 07/20/2023) Immunizations Name Administration Dates Next Due COVID-19 mRNA, LNP-s, No Pre serve, 2-Dose Series ([employer]) 03/22/2022 RSV Vac., Recomb, Adjuvant, PF,0.5 Ml (Arexvy) 1 07/29/2022 Seasonal Influenza, PF, 6 M & above, IM , (FluLaval or Fluzone) 04/11/2017 Seasonal Influenza, Quadrivalent Hd (Fluzone Hd) 04/17/2023 Seasonal Influenza, Quadrivalent, No Preserve, I M 04/08/2016 Seasonal Influenza, Split, IIV3, With Preserve, Inj 04/03/2015,04/30/2014 documented as of this encounter Social History Tobacco Use Types Packs/Day Years Used Date Smoking Tobacco: Never Smokeless Tobacco: Never Tobacco Cessation:Counseling Given: Not Answered Alcohol Use Standard Drinks/Week Comments Yes 0.8 (1 standard drink = 0.6 oz p ure alcohol) Sex and Gender Information Value Date Recorded Sex Assigned at Not on file Gender Identity Not on file Sexual Orientation Not on file Job Start Date Occupation Industry Not on file Not on file Not on file documented as of this encounter Last Filed Vital Signs Vital Sign Reading Time Taken Comments Blood Pressure 116/82 07/20/2023 2:30 PM EST Pulse 56 07/20/2023 2:30 PM EST Temperature - - Respiratory Rate - - Oxygen Saturation 96% 07/20/2023 2:30 PM EST Inhaled Oxygen Concentration - - Weight 58.1 kg (128 lb) 07/20/2023 2:30 PM EST Height - - Body Mass Index 23.41 05/17/2023 1:06 PM EST documented in this encounter Progress Notes * Allison Brito PA-C - 07/20/2023 2:23 PM EST 07/20/2023 Cardiology Follow Up Primary Supervisor Stave Cutting: Dr. Trotter Past medical history: Paroxysmal atrial fibrillation with sustained episode post surgical October of 2021 in association withbronchitis and pneumonia, in hospital 2% PAF burden per zio 08/2022, [id number] score of 3 Sensed palpitations Mild mitral insufficiency Hypothyroidism, on replacement Chronic hyponatremia- follows with PCP Vertigo, uses meclizine Solitary kidney HPI: Marina Polk is a 87 year old female who presents for routine cardiology follow up. Last evaluated in clinic approximately 6 months ago by LAZARO Ramírez. Presents today overall feeling well. Has palpitations and typical episode of afib infrequently, recorded 2 hour long episodes one day in April and June. Has aches and pain, occasional twinges randomly. Denies chest pain, shortness of breath, edema, PND, orthopnea, lightheadedness, syncope. Independent, does not use cane or walker. Walks 5 days a week for an hour with friend. Compliant with medications. REVIEW OF SYSTEMS: See HPI for pertinent positives. All others negative other than those noted in the HPI. CONSTITUTIONAL: No change in weight, No weakness, No fatigue and No fevers, No sweats or chills. PULMONARY: No cough, sputum, or hemoptysis, No wheezing, No shortness of breath and No recent change in breathing. CARDIOVASCULAR: No chest pain, No dyspnea on exertion, No edema, + palpitations and No syncope. GASTROINTESTINAL: No abdominal pain, No change in bowel habits, No significant heartburn, No nausea, No vomiting, No diarrhea, No constipation, No blood in stools or black tarry stools. No dysphagia. HEMATOLOGIC: No abnormal bleeding and No bruising. NEUROLOGICAL: Normal balance, No headaches and No weakness. Review of patient's allergies indicates: Allergen Reactions Cefepime Rash Current Outpatient Medications Medication Sig Dispense Refill Synthroid 25 MCG Oral Tablet Take 1 Tablet by mouth daily first thing in the morning. Ocuvite Adult Formula Oral Capsule Take by mouth. Zinc 30 MG Oral Tablet Take by mouth. Metoprolol Succinate ER 25 MG Oral Tablet Extended Release 24 Hour (Toprol XL) Take 0.5 Tablets by mouth in the morning. 45 Tablet 3 Apixaban 2.5 MG Oral Tablet (Eliquis) Take 1 Tablet by mouth in the morning and 1 Tablet before bedtime. 180 Tablet 3 Vitamin D 25 MCG (1000 UT) Oral Tablet Take 64 Tablets by mouth once. No current facility-administered medications for this visit. Past Medical History: Diagnosis Date Allergic rhinitis INFORMATION born with malfunctioning kidney, had surgery Osteoporosis Family History Problem Relation Age of Onset Cancer Mother Diabetes Brother Thyroid Disorder Sister Hypertension None Heart Disorder None Stroke None Eye Problems Father 86 AMD-wet, had peripheral vision Eye Problems Aunt (Unspecified) had eye condition, not sure what it was but was blind Eye Problems Father ?retinal Detachment Eye Problems Other Denies FH: Glaucoma Social History Socioeconomic History Marital status: Tobacco Use Smoking status: Never Smokeless tobacco: Never Substance and Sexual Activity Alcohol use: Yes Alcohol/week: 0.8 standard drinks of alcohol Types: 1 5 oz of wine per week Drug use: No OBJECTIVE/PHYSICAL EXAMINATION: BP 116/82 | Pulse 56 | Wt 58.1 kg (128 lb) | SpO2 96% | BMI 23.41 kg/m | BSA 1.59 m General: No acute distress. A+Ox3. HEENT: Normocephalic. Atraumatic. PERRL. EOMI. Conjunctiva and sclera clear. NECK: No carotid bruits. No JVD. Carotid upstrokes are brisk. Heart: RRR. S1 and S2 noted. No murmur. No rubs or gallops. PMI non displaced. Lungs: Clear to auscultation. No wheezes. No rhonchi. No rales. Abdomen: Normal bowel sounds. Soft. Nontender. No masses or organomegaly. No abdominal bruits. Extremities: No edema. No clubbing or cyanosis. Pulses: radial=2/4, posterior tibial=2/4, dorsalis pedis = 2/4. NEURO: No focal deficits. PSYCH: Appropriate affect and insight. DATA Labs & Imaging Reviewed Below: EKG 07/20/23 Sinus bradycardia, 57 bpm Zio 08/23/2022 Patient had a min HR of 42 bpm, max HR of 166 bpm, and avg HR of 63 bpm. Predominant underlying rhythm was Sinus Rhythm. Atrial Fibrillation occurred (2% burden), ranging from 75-166 bpm (avg of 120 bpm), the longest lasting 3 hours 38 mins with an avg rate of 119 bpm. Atrial Fibrillation was detected within +/- 45 seconds of symptomatic patient event(s). Isolated SVEs were rare (<1.0%), SVE Couplets were rare (<1.0%), and SVE Triplets were rare (<1.0%). Isolated VEs were rare (<1.0%), VE Couplets were rare (<1.0%), and no VE Triplets were present. Echo 10/2021 at [facility] LVEF 60-65% No wall motion abnormalities Mild concentric LVH Mild MR Mild to moderate TR ASSESSMENT/PLAN: 87 year old female 1. Paroxysmal atrial fibrillation (HCC) -Paroxysmal atrial fibrillation with sustained episode post surgical October of 2021 in association with bronchitis and pneumonia, in hospital -2% PAF burden per zio 08/2022 -[id number] score of 3 (age, female). 1. Continue metoprolol succinate 12.5 mg daily, would avoid increased dose due to bradycardia 2. Continue Eliquis 2.5 mg twice daily for stroke prevention (reduced dose for age and weight) 3. No activity restrictions from a cardiac standpoint. DISPOSITION: Follow up 1 year or sooner if symptoms worsen/fail to improve. All questions were answered to the patients satisfaction. Patient advised to report to ED with any and all emergencies. The patient agrees to the above plan and will call with additional questions or concerns. Allison Brito PA-C Cardiology, [address] [address] I spent a total of 35 minutes on the date of service in preparation, delivery, and documentation ofthe care provided to Marina Polk excluding any time spent in the performance of separately billed services. This chart was completed in part utilizing [employer] Speech Voice Recognition Software. Grammatical errors, random word insertions, pronoun errors, and incomplete sentences are an occasional consequence of this system due to software limitations, ambient noise, and hardware issues. Any formal questions or concerns about the content, text, or information contained within the body of this dictation should be directly addressed to the provider for clarification. documented in this encounter Nursing Notes * Karin Dunne CMA - 07/20/2023 2:29 PM EST Examination Room: 1 Name: Marina Polk Date of : (1935) Reason for Visit: 6m Interim Hospitalization(s): none Problems/Concerns: denied Chest Pain/SOB: denied My [facility] is a way you can talk to your provider online through e-mail. Would you like to sign up? I can activate it for you? ALREADY ACTIVE Patient was instructed to not get up on the exam table until directed and assisted by their provider; patient is to remain seated in the chair/ wheelchair/ exam table for fall prevention and safety reasons. Patient is aware to have assistance to step down off exam table with personnel. Patient voiced full comprehension of instructions. documented in this encounter Plan of Treatment Scheduled Orders Name Type Priority Associated Diagnoses Orde r Schedule EKG EKG Routine Paroxysmal atrial fibrillation (HCC) Ordered: 07/20/2023 Health Maintenance Due Date Last Done Comments DXA Scan 1935 Depression Screening 1947 TSH 1954 DTaP,Tdap,and Td Vaccines (1 - Tdap) 11/22/1954 Pneumococcal Vaccine: 65+ Years Completed 08/07/2019, 06/28/2018 Zoster Vaccines Completed 08/23/2019, 05/26/2019 COVID-19 Vaccine Completed 04/17/2023, , 03/22/2022, Additional history exists Influenza Vaccine (FLU shot) Completed , 04/10/2022, 04/04/2018, Additional history exists GARDASIL-HPV IMMUNIZATION SERIES Aged Out No longer eligible based on patient's age to complete this topic Hepatitis B Aged Out No longer eligi ble based on patient's age to complete this topic MENINGOCOCCAL (MENACTRA/MENVEO) Aged Out No longer eligible based on patient's age to complete this topic documented as of this encounter Medical Devices Not on filedocumented as of this encounter Visit Diagnoses Diagnosis Paroxysmal atrial fibrillation (HCC)- Primary Atrial fibrillation documented in this encounter Care Teams Fire Management Technician Relationship Specialty Start Date End Date Blanca Prado MD [address] [place] [address] PCP - General Internal Medicine 08/15/22 documented as of this encounter"
--- OUTSIDE RECORDS SUMMARY | 2023-10-09 06:50 | External Medical Summary | Summary of Care ---
Author Name Unknown Organization [facility] Address [address] [place] [address] Phone [phone] Care Team Providers Care Shadowgraph Operator Name Role Phone Blanca Prado MD Primary Care Provide r Encounter Details Date Type Department Care Team (Late st Contact Info) Description 07/24/2023 Orders Only Cardiology [facility] [address] [place] [phone] Allison Brito PA-C [address] [place] [address] Allergies Active Allergy Reactions Criticality Noted Date Comments Cefepime Rash High 08/23/2022 documented as of this encounter (statuses as of 07/24/2023) Medications Medication Sig Dispensed Refills Start Date [...] as of this encounter (statuses as of 07/24/2023) Active Problems Problem Noted Date Diagnosed Date Paroxysmal atrial fibrillation 01/01/2023 documented as of this encounter (statuses as of 07/24/2023) Immunizations Name Administration Dates Next Due COVID-19 mRNA, LNP-s, No Pre serve, 2-Dose Series ([email or web address]) 03/22/2022 RSV Vac., Recomb, Adjuvant, PF,0.5 Ml [...] Date Smoking Tobacco: Never Smokeless Tobacco: Never Alcohol Use Standard Drinks/Week Comments Yes 0.8 (1 standard drink = 0.6 oz p ure alcohol) Sex and Gender Information Value Date Recorded Sex Assigned at Not on file Gender Identity Not on file Sexual Orientation Not on file Job Start Date Occupation Industry Not on file Not on file Not on file documented as of this encounter Plan of Treatment Health Maintenance Due Date Last Done Comments [...] Not on filedocumented as of this encounter Procedures Procedure Name Priority Date/Time Associated Diagnosis Comments CHEMISTRY-OUTSIDE Routine 05/31/2023 CHEMISTRY-OUTSIDE Routine 05/23/2023 documented in this encounter Results * CHEMISTRY-OUTSIDE (05/31/2023) Not all results display below - see scan for full detail OUTSIDE LAB (SEE SCANNED REPORT) Comment:SCAN INCLUDES: URINA LYSIS, MALB CREA RATIO CREATININE-OUTSI DE LAB OUTSIDE LAB (SEE SCANNED REPORT) EGFR-OUTSIDE LAB OUT SIDE LAB (SEE SCANNED REPORT) POTASSIUM-OUTSID E LAB OUTSIDE LAB (SEE SCANNED REPORT) GLUCOSE-OUTSIDE LAB OUTSIDE LAB (SEE SCANNED REPORT) HOURS FASTING OUTSID E LAB (SEE SCANNED REPORT) TRIGLYCERIDES-OU TSIDE LAB OUTSIDE LAB (SEE SCANNED REPORT) CHOLESTEROL-OUTS JORDI LAB OUTSIDE LAB (SEE SCANNED REPORT) HDL-OUTSIDE LAB OUTS JORDI LAB (SEE SCANNED REPORT) CHOL/HDL RATIO-OUTSIDE LAB OUTSIDE LAB (SEE SCANNED REPORT) LDL (CALCULATED)-OUT SIDE LAB OUTSIDE LAB (SEE SCANNED REPORT) LDL (DIRECT MEASURE)-OUTSIDE LAB OUTSIDE LAB (SEE SCANNED REPORT) HEMOGLOBIN, M6G-PURFUSV LAB OUTSIDE LAB (SEE SCANNED REPORT) PHOSPHORUS-OUTSI DE LAB OUTSIDE LAB (SEE SCANNED REPORT) PTH-OUTSIDE LAB OUTS JORDI LAB (SEE SCANNED REPORT) MICROALBUMIN RATIO-OUTSIDE LAB <5.3 0 - 30 MCG/MG OUTSIDE LAB (SEE SCANNED REPORT) PROTEIN, UA-OUTSIDE LAB NEGATIVE NEGATIVE OUTSIDE LAB (SEE SCANNED REPORT) HEMOGLOBIN-OUTSI DE LAB OUTSIDE LAB (SEE SCANNED REPORT) 05/31/2023 History Per Patient LABORATORY OUTSIDE LAB (SEE SCANNED REPORT) * CHEMISTRY-OUTSIDE (05/23/2023) Not all results display below - see scan for full detail OUTSIDE LAB (SEE SCANNED REPORT) Comment:SCAN INCLUDES: CBCD, CMP, TSH, VIT D 25-OH, FERRITIN CREATININE-OUTSID E LAB 1.00 0.6 - 1.2 MG/DL OUTSIDE LAB (SEE SCANNED REPORT) EGFR-OUTSIDE LAB 51.0 ML/MIN OUT SIDE LAB (SEE SCANNED REPORT) POTASSIUM-OUTSIDE LAB 4.7 3.5 - 5.1 MMOL/L OUTSIDE LAB (SEE SCANNED REPORT) GLUCOSE-OUTSIDE LAB 84 70 - 99 MG/DL OUTSIDE LAB (SEE SCANNED REPORT) HOURS FASTING OUTSID E LAB (SEE SCANNED REPORT) TRIGLYCERIDES-OUT SIDE LAB OUTSIDE LAB (SEE SCANNED REPORT) CHOLESTEROL-OUTSI DE LAB OUTSIDE LAB (SEE SCANNED REPORT) HDL-OUTSIDE LAB OUTS JORDI LAB (SEE SCANNED REPORT) CHOL/HDL RATIO-OUTSIDE LAB OUTSIDE LA B (SEE SCANNED REPORT) LDL (CALCULATED)-OUTS JORDI LAB OUTSIDE LAB (SEE SCANNED REPORT) LDL (DIRECT MEASURE)-OUTSIDE LAB OUTSIDE LAB (SEE SCANNED REPORT) HEMOGLOBIN, B5I-ZEDLDTV LAB OUTSIDE LAB (SEE SCANNED REPORT) PHOSPHORUS-OUTSID E LAB OUTSIDE LAB (SEE SCANNED REPORT) PTH-OUTSIDE LAB OUTS JORDI LAB (SEE SCANNED REPORT) MICROALBUMIN RATIO-OUTSIDE LAB OUTSIDE LA B (SEE SCANNED REPORT) PROTEIN, UA-OUTSIDE LAB OUTSIDE LAB (SEE SCANNED REPORT) HEMOGLOBIN-OUTSID E LAB 13.0 12.0 - 16.0 G/DL OUTSIDE LAB (SEE SCANNED REPORT) 05/23/2023 History Per Patient LABORATORY OUTSIDE LAB (SEE SCANNED REPORT) documented in this encounter Care Teams Shadowgraph Operator Relationship Specialty Start Date End Date Blanca Prado MD [address] [place] [address] PCP - General Internal Medicine 08/15/22 documented as of this encounter
--- NOTE | 2023-10-09 06:56 | XRay Report ---
XR chest 1V portable HISTORY: Chest pain, nonspecific COMPARISON: Chest 02/08/2022. FINDINGS: The lungs are clear. Cardiac silhouette is normal in size. No pleural effusions. No pneumot horax. IMPRESSION: No acute process. ACT 112: Negative or not required by law. Electronically signed by: Jeff Rosales M.D. 10/09/2023 6:55 AM
--- NOTE | 2023-10-09 07:00 | Discharge Summary ---
Date of Service October 09, 2023 Admission HPI Per Admitting Provider Pt is a 87 yo female with PMH of afib on anti-coagulation, hx of breast cancer (s/p surgical removal, no chemo/radiation), HTN, CKD, hypothyroidism, and osteoarthritis presenting due to heart racing. Pt states she started having heart palpitations and jaw pain last night ~8PM. She states this is typical for her episodes of afib- she feels heart palpitations and has jaw pain that lasts a few minutes. She states prior to starting metoprolol for her afib, she would have episodes lasting 2 hrs every 2- 3 weeks. After being on metoprolol, her episodes have decreased in frequency to every 2-3 mths. She did have one episode of afib that lasted 14 hrs which is abnormal for her. Pt says she did miss/delay her metoprolol dose this morning. She typically takes it in the morning but yesterday at lunch she noticed that cristina manuel hadn't taken it yet. In the ER, pt was given 1L NS, metoprolol 12.5 mg PO, and metoprolol 5mg IV. Admission Exam Per Admitting Provider Constitutional: NAD, vitals WNL. Respiratory: CTA bilaterally. Non labored breathing. No rhonchi, wheezing, or crackles. Cardiovascular: Irregular rhythm, regular rate. No murmurs noted. No LE edema. Gastrointestinal (Abdomen): Nontender, nondistended. No masses noted. Skin: No rashes or skin lesions noted. Neurologic: Sensation grossly intact. No FND appreciated. Psychiatric: Speech of normal pace and content. Mood and affect congruent. Principal Diagnosis A-Fib with RVR Discharge Exam Constitutional: well-appearing, no acute distress HEENT: NCAT, no conjunctival injection CV: regular rhythm, no murmur appreciated, extremities well-perfused, no LE edema Resp: CTABL, no wheezes/rales/rhonchi appreciated, no increased work of breathing GI: soft, nondistended, nontender, BS normoactive MSK: no gross deformities appreciated Skin: warm, dry, no rash appreciated Neuro: alert, oriented, no focal neurologic deficit appreciated Discharge Data Allergies Allergy/AdvReac Type Severity Reaction Status Date / Time tetracycline Allergy Mild RASH? Verified 10/09/23 11:27 cefepime Allergy Rash Verified 04/09/24 11:27 tamoxifen AdvReac Severe Diarrhea Verified 10/09/23 11:27 Consultations 10/08/23 23:38 ED Decision to Admit Stat Hospital Course (1) Atrial fibrillation: Pt is a 87 yo female with PMH of afib on anti-coagulation, hx of breast cancer (no chemo/radiation), HTN, CKD, hypothyroidism, and osteoarthritis presenting due to heart racing. Afib - lab work significant for CBC WNL, electrolytes WNL, Cr 1.03, trop 8.4 - EKG upon admission showed afib w/ RVR to 110s/120s; CXR WNL - will check another trop d/t timing of onset of her symptoms; however, do not suspect ACS d/t chronicity and reproducible symptoms - s/p metoprolol 12.5mg PO (home dose), metoprolol 5mg IV in the ER - will continue to monitor rhythm and HR - pt may benefit from increased home metoprolol dosing; however, she does note that at home her BPs are typically on the lower side and cardio report from 07/2023 makes note of bradycardia; it is also possible that this current breakthrough episode is moreso related to the timing/missed dose of her metoprolol; to prevent this from happening in the future, pt may benefit from taking metoprolol at same time everyday rather than increasing the dose - will restart home medication and have patient f/u with cardiology in 1-2 weeks. Hypothyroidism - continue home levo - TSH normal. (2) Hypothyroidism: Total Time Total Time Spent Total Time Spent (In Minutes): <30 mins Discharge Plan Discharge Items Patient Disposition: Home - Self-Care Reason For Visit: AFIB Discharge Diagnosis: A-fib with RVR Condition on Discharge: Fair Activity: Resume your previous activity Non-emergency contact: Primary Care Provider Call non-emergency contact if: you have any medication questions, your pain is concerning for you and your temperature is above 101.5 Follow-up/Referrals: Blanca Prado MD [Primary Care Provider] - Omid Trotter MD [Physician] - (within 1-2 weeks) Diet: Regular Addtl Attending Provider Instructions: You were admitted to the hospital for Atrial Fibrillation. You were treated with metoprolol, and your symptoms improved. At home, be sure to take your medication on a daily basis to prevent reoccurrence of your palpitations. A discharge summary will be sent to your primary care physician to ensure continuity of care. Please bring this discharge summary with you to your next office appointment so that your provider can review it at that time. Follow-up appointments: * Make a follow-up appointment with your PCP within the next week. It is very important that you follow up with them shortly after discharge from the hospital. * We have requested a follow-up appointment with your bioprocess development engineer within 1-2 weeks of discharge. Please call their office if you do not hear from them. * Keep all your follow-up appointments as already scheduled. If you cannot make an appointment, notify your provider. Medications: Your medication list has been reviewed and reconciled upon discharge to ensure accuracy and continuity of care. An updated list of all your medications is included with your hospital discharge paperwork. Please review this list closely, and make note of any changes. * No new medicine changes were made during this visit. * If you have any issues filling these prescriptions, please call [phone] and ask to leave a message for Dr. Lutz. * Take your medications as instructed; do not skip a dose of your medicines. Make sure all of your doctors know every medicine you are taking (including [id number]-[id number] medicines, vitamins, and supplements). Call your primary care provider before taking any new medicines (including over- the-counter medicines, vitamins, and supplements), because some of these may interact with your current medications, or may make your symptoms worse. Tell your primary care provider if you cannot afford your medications. CONTACT YOUR PRIMARY CARE PROVIDER if you experience any of the following: * Worsening of symptoms * Fever, chills, or fatigue * Difficulty following your treatment plan, or difficulty taking medications CALL 911 OR GO TO THE EMERGENCY DEPARTMENT if you experience any of the following: * Sudden, severe abdominal pain or nausea/vomiting * Severe chest pain, or chest pain that radiates (moves) to your jaw or arm * Sudden, severe shortness of breath or difficulty breathing Thank you for allowing us to participate in your care. Pending Studies at Discharge: No Stand-Alone Forms: My T[employer] Card, Smoking Cessation Medications and DC Order Prescriptions: Continued levothyroxine 25 mcg tablet 25 mcg PO DAILY Qty: 90 3RF calcium citrate 200 mg (950 mg) tablet 200 mg PO DAILY PRN (Reason: Takes w/ Magnesium) Eliquis 2.5 mg tablet 2.5 mg PO BID metoprolol succinate 25 mg tablet extended release 24 hr 12.5 mg PO DAILY magnesium citrate 100 mg Capsule 100 mg PO DAILY PRN (Reason: LEG CRAMPS) zinc 50 mg Capsule 50 mg PO Q OTHER DAY vit C-vit [id number] [id number]-mg Capsule 1 cap PO QDL Discharge Orders: Discharge Order (Routine); Ordered 10/09/23 Ordered By: Priyanka Chan Admission Data Admit Date/Time: 10/09/23 00:59 Attending Provider: Philipp Sánchez Admit Provider: Nalini Madrigal Primary Care Provider: Blanca Prado Other Providers: Alisha Apple Other Interventions: Discharge Summary Assessment (RN) Last Done: 10/09/23 16:34 Supervising Physician Co-Signing Physician Notes I personally examined the patient and verified all whitman points of history and exam, discussed case, and agree with decision making with Dr Lutz Feeling better and would like to go home. She discussed the frustrations with never seeing a doctor at her cardiology officeI offered to reach out, she noted she would. Discussed management of A-fiband trying to remember her metoprolol dosingalthough it is not really clear if she truly forgets that it just takes at different times of day. At any rate rates are better controlled and she would very much like to go home. Continues her anticoagulation without difficulty. Vitals noted, in general she is awake and alert pleasant no distress. HEENT normocephalic atraumatic mucous membranes moist. Breathing unlabored no accessory muscle use good effort. Skin shows no rashes no pallor or icterus. Rates are controlled. Atrial fibrillationpresented with RVRnow improved. Not clear if she was missing doses or just taking at erratic timesi.e. it is not clear that an escalation of dose would be of benefit if she is missing some dosesrather encouraged to try to take regularly. Follow-up closely with her PCP and regular cardiologistdiscussed that I could reach out to her bioprocess development engineer to try to ask for better continuity with her physician, she noted she would. Safe/stable for home. Otherwise as above
[2023-10-09] MEDS: LEVOTHYROXINE SODIUM 25 MCG TABLET PO SCH (10:01)
[2023-10-09] MEDS: METOPROLOL SUCC 25MG EXT REL TAB PO SCH (10:03)
[2023-10-09] MEDS: APIXABAN 2.5 MG TAB PO SCH (10:03)
--- NOTE | 2023-10-09 16:56 | Communication Note ---
Date of Service: October 09, 2023 By CMS guidelines, a determination that the admission or continued stay is not medically necessary has been made by a member of the UR committee and a physi marino for this hospital stay, therefore a Code 44 will be completed and the Inpatient admission will be changed to outpatient.
--- NOTE | 2023-10-09 19:49 | Communication Note ---
Date of Service: October 09, 2023 By CMS guidelines, a determination that the admission or continued stay is not medically necessary has been made by a member of the UR committee and a physic sri for this hospital stay, therefore a Code 44 will be completed and the Inpatient admission will be changed to outpatient.
--- NOTE | 2023-10-09 19:51 | Billing Data ---
Date of Service October 09, 2023 Coding Level of Care Code 54153 IN/OBS DISCH 30 MIN/LESS
--- NOTE | 2023-10-11 19:49 | Billing Data ---
Date of Service October 09, 2023 Coding Level of Care Code 09895 INT INP/OBS CARE
--- NOTE | 2023-10-11 22:41 | Electrocardiogram Report ---
Test Reason : Blood Pressure : / mmHG Vent. Rate : 118 BPM Atrial Rate : 000 BPM P-R Int : 000 ms QRS Dur : 068 ms QT Int : 300 ms P-R-T Axes : 000 045 061 degrees QTc Int : 420 ms Atrial fibrillation with rapid ventricular response Nonspecific T wave abnormality Abnormal ECG When compared with ECG of 01-DEC-2021 13:50, Atrial fibrillation has replaced Sinus rhythm Vent. rate has increased BY 48 BPM Confirmed by Marc Payne ([id number]) on 10/11/2023 10:41:18 PM Referred By: REFERRED SELF Confirmed By:Marc Payne
== END 2023-10-09 16:34 | disposition home or self-care (01) | DRG 310 ==
LOC: ED 21:37 → SUATTDRO 10-09 00:59 → EDINP 10-09 00:59
DX: Z79.890 Hormone replacement therapy; Z79.01 Long term (current) use of anticoagulants; Z85.3 Personal history of malignant neoplasm of breast; N18.30 Chronic kidney disease, stage 3 unspecified; M19.90 Unspecified osteoarthritis, unspecified site; I48.91 Unspecified atrial fibrillation; E03.9 Hypothyroidism, unspecified; Z88.1 Allergy status to other antibiotic agents; Z88.6 Allergy status to analgesic agent